=== PATIENT | male | born 1955 | race Caucasian/White ===

== ENCOUNTER 2025-03-16 22:08 | Observation (INO) | payer OTHER ==
--- OUTSIDE RECORDS SUMMARY | 2025-03-16 22:17 | XMS REPORT | Continuity of Care Document ---
Author Name Unknown Address [address] [place] [address] [address] [place] [address] [facility] [address] [facility] [address] [place] [address] Care Team Providers Care Market Risk Specialist Name Role Phone Shy Dao NP Primary Care Physician James Wilhelm Attending Clinician Unavailable NELLA Attending Clinician Unavailable Natalie Bustamante Attending Clinician [phone] DILMA Attending Clinician Unavailable Violette Yeager Attending Clinician [phone] NELLA Admitting Clinician Unavailable DILMA Admitting Clinician Unavailable Payers Payer Name Policy Type Policy Number Effective Date Expirati on Date Source [employer]IG[employer] - OPEN ACCESS PLUS [id number] CIGNA C1 [id number] [facility] Problems Condition Name Condition Details Condition Category Status Onset Date Resolution Date Last Treatment Date Treating Clinician Comments Source 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 Hypertensi ve Heart Disease without Congestive Heart Failure Problem Active 2020-11 00:00: 00 [facility] Localized edema Localized Edema Problem Active 2020-11 00:00: 00 [facility] Electrocar diogram abnormal Electrocar diogram Abnormal Problem Active 2020-11 00:00: 00 [facility] Peripheral arterial disease Peripheral Arterial Disease Problem Active 2020-11 00:00: 00 [facility] Secondary cerebrovas cular disease Secondary Cerebrovas cular Disease Problem Active 2020-11 00:00: 00 [facility] Vitamin D deficiency Vitamin D Deficiency Problem Active 2020-11 00:00: 00 [facility] Diabetes mellitus Diabetes Mellitus Problem Active 2020-11 00:00: 00 [facility] Hyperlipid emia Hyperlipid emia Problem Active 2020-11 00:00: 00 [facility] [id number] Type 2 diabetes mellitus with other diabetic kidney complicati on Problem Active [facility] [id number] Seasonal allergies Problem Active [facility] [id number] Controlled type 2 diabetes mellitus without complicati on, without long-term current use of insulin Problem Active [facility] [id number] Adult BMI 34.0-34.9 kg/sq m Problem Active [facility] [id number] Noncomplia nce with dietary restrictio n Problem Active [facility] [id number] History of gallstones Problem Active [facility] [id number] Uncontroll ed type 2 diabetes mellitus with hyperglyce andie, unspecifie d whether retirement insulin use Problem Active [facility] [id number] Mixed hyperlipid emia Problem Active [facility] [id number] HTN (hypertens ion), benign Problem Active [facility] Allergies, Adverse Reactions, Alerts Allergy Name Allergy Type Status Severity Reaction(s) Onset Date Inactive Date Treating Clinician Comments Source iodine Propensi ty to adverse reaction to drug Active 07-02 00:00: 00 Gunnar Loya Iodine Allergy to substanc e Active Severe Anaphylaxis [facility] Social History Social Habit Start Date Stop Date Quantity Comments Source History of Tobacco Use [facility] Sex Assigned At [facility] Smoking Status Start Date Stop Date Source Never Smoker [facility] Medications Ordered Medication Name Filled Medication Name Start Date Stop Date Current Medication? Ordering Clinician Indication Dosage Frequency Signature (SIG) Comments Components Source losartan 50 mg tablet 2023-11 00:00: 00 Yes mg Gunnar Loya quetiapine 25 mg tablet 2023-11 00:00: 00 Yes mg Gunnar Loya atorvastati n 20 mg tablet 2023-11 00:00: 00 Yes mg Gunnar Loya pantoprazol e 40 mg tablet,rabia yed release 2023-11 00:00: 00 Yes mg Gunnar Loya Toujeo Max U-300 SoloStar 300 unit/mL (3 mL) subcutaneou s insulin pen 2023-11 00:00: 00 Yes (3 mL) Gunnar Loya cetirizine 10 mg tablet 2023-11 00:00: 00 Yes 1mg Gunnar Loya Mucinex DM 30 mg-600 mg tablet,exte nded release 12 hr 2023-11 00:00: 00 Yes 1mg Gunnar Loya Victoza 2-Nitin 0.6 mg/0.1 mL (18 mg/3 mL) subcutaneou s pen injector 2023-11 0 00:00: 00 Yes 1(18 mg/3 mL) Gunnar Loya Victoza 2-Nitin 0.6 mg/0.1 mL (18 mg/3 mL) subcutaneou s pen injector 2023-11 00:00: 00 Yes 1(18 mg/3 mL) Gunnar Loya Breo Ellipta 200 mcg-25 mcg/dose powder for inhalation 2023-11 00:00: 00 Yes 1mcg/do se Gunnar Loya moxifloxaci n 0.5 % eye drops 2023-11 00:00: 00 Yes 1% Gunnar Loya Symbicort 160 mcg-4.5 mcg/actuati on HFA aerosol inhaler 2023-11- 00:00: 00 Yes 1mcg/ac tuation Gunnar Loya albuterol sulfate HFA 90 mcg/actuati on aerosol inhaler 2023-1118 00:00: 00 Yes 1mcg/ac tuation Gunnar Loya Depakote 500 mg tablet,rabia yed release 2024-1 0-18 00:00: 00 Yes 1mg Gunnar Loya Toujeo Max U-300 SoloStar 300 unit/mL (3 mL) subcutaneou s insulin pen 0 9-20 00:00: 00 Yes (3 mL) Gunnar Loya cetirizine 10 mg tablet 0 9-11 00:00: 00 Yes 1mg Gunnar Loya amoxicillin 500 mg capsule 0 9-11 00:00: 00 Yes 1mg Gunnar Loya quetiapine 25 mg tablet 0 8-20 00:00: 00 Yes mg Gunnar Loya atorvastati n 20 mg tablet 0 8-20 00:00: 00 Yes mg Gunnar Loya pantoprazol e 40 mg tablet,rabia yed release 0 8-20 00:00: 00 Yes mg Gunnar Loya Rybelsus 14 mg tablet 0 8-20 00:00: 00 Yes 1mg Gunnar Loya losartan 50 mg tablet 0 6-24 00:00: 00 Yes mg Gunnar Loya Toujeo Max U-300 SoloStar 300 unit/mL (3 mL) subcutaneou s insulin pen 2023-0 6-18 00:00: 00 Yes (3 mL) Gunnar Loya Toujeo Max U-300 SoloStar 300 unit/mL (3 mL) subcutaneou s insulin pen 0 5-31 00:00: 00 Yes (3 mL) Gunnar Loya Rybelsus 3 mg tablet 0 5-31 00:00: 00 Yes 1mg Gunnar Loya quetiapine 25 mg tablet 0 3-10 00:00: 00 Yes mg Gunnar Loya pantoprazol e 40 mg tablet,rabia yed release 0 3-10 00:00: 00 Yes mg Gunnar Loya atorvastati n 20 mg tablet 0 3-02 00:00: 00 Yes mg Gunnar Loya Rybelsus 14 mg tablet 0 2-15 00:00: 00 Yes mg Gunnar Loya TAKE ONE TABLET 15 MINUTES BEFORE OTHER MEDS WITH A SMALL SIP OF WATER 2023-0 2-14 00:00: 00 Yes 14 Gunnar Loya 80 U SQ QD MAY INCREASE OR DECREASE BY 2 U ACCORDING TO MORNING FASTING GLU - GOAL IS 120 - 00:00: 00 Yes 300 Gunnar Loya TAKE 1 TABLET TWICE DAILY WITH FOOD. - 00:00: 00 Yes 500 Gunnar Loya TAKE 1 TABLET DAILY. - 00:00: 00 Yes 81 Gunnar Loya TAKE 1 TABLET DAILY. 12-25 00:00: 00 Yes 50 Gunnar Loya TAKE 1 TABLET DAILY DIRECTED. 12-25 00:00: 00 Yes 20 Gunnar Loya 1 TAB PO QHS FOR SLEEP - 12-25 00:00: 00 Yes 25 Gunnar Loya TAKE 1 TABLET DAILY. 12-25 00:00: 00 Yes 40 Gunnar Loya Toujeo Max U-300 SoloStar 300 unit/mL (3 mL) subcutaneou s insulin pen 11-24 00:00: 00 Yes (3 mL) Gunnar Loya TAKE 1 TABLET TWICE DAILY. 2022-11 2- 00:00: 00 01-15 00:00 :00 No 500 Gunnar Loya losartan 50 mg tablet 2022-11- 00:00: 00 01-15 00:00 :00 No mg Gunnar Loya METFORMIN 500MG 2022-11 00:00: 00 01-15 00:00 :00 No Gunnar Loya ATORVASTATI N 20MG 2022-11 00:00: 00 01-15 00:00 :00 No Gunnar Loya INSTILL 1 DROP EVERY 8 HOURS WHILE AWAKE INTO LEFT EYE FOR 7 DAYS 2022-11- 00:00: 00 Yes Gunnar Loya TAKE 1 TABLET BY MOUTH EVERY MORNING 2022-11 0-27 00:00: 00 01-15 00:00 :00 No 10 Gunnar Loya RYBELSUS 14MG - 00:00: 00 01-15 00:00 :00 No Gunnar Loya DIVALPROEX 500MG DR 08-01 00:00: 00 Yes Gunnar Loya TAKE 1 TABLET TWICE DAILY. 08-01 00:00: 00 01-15 00:00 :00 No 500 Gunnar Loya TAKE 1 TABLET TWICE DAILY WITH FOOD. 08-01 00:00: 00 01-15 00:00 :00 No 500 Gunnar Loya TAKE 1 TABLET DAILY DIRECTED. 08-01 00:00: 00 01-15 00:00 :00 No 20 Gunnarrito Loya 40 U SQ QD MAY INCREASE OR DECREASE BY 2 U ACCORDING TO MORNING FASTING GLU - GOAL IS 120 08-01 00:00: 00 01-15 00:00 :00 No 300 Gunnar Loya TAKE 1 TABLET DAILY. 08-01 00:00: 00 01-15 00:00 :00 No 81 Gunnar Loya TAKE 1 TABLET DAILY. 08-01 00:00: 00 01-15 00:00 :00 No 50 Gunnar Loya TAKE 1 TABLET DAILY. 08-01 00:00: 00 01-15 00:00 :00 No 40 Gunnar Loya TAKE ONE TABLET BY MOUTH 15 MINUTES BEFORE OTHER MEDS WITH A SMALL SIP OF WATER 08-01 00:00: 00 01-15 00:00 :00 No Gunnar Loya TAKE ONE TABLET 15 MINUTES BEFORE OTHER MEDS WITH A SMALL SIP OF WATER 07-28 00:00: 00 01-15 00:00 :00 No 14 Gunnar Loya TAKE ONE TABLET 15 MINUTES BEFORE OTHER MEDS WITH A SMALL SIP OF WATER 05-17 00:00: 00 01-15 00:00 :00 No 14 Gunnarrito Loya TOUJEOSOL MX 300U/ML PEN 05-17 00:00: 00 01-15 00:00 :00 No Gunnar Loya ATORVASTATI N 20MG 04-27 00:00: 00 01-15 00:00 :00 No [id number] Gunnar Loya DIVALPROEX 500MG DR 04-26 00:00: 00 Yes Gunnar Loya RYBELSUS 7MG 04-21 00:00: 00 Yes Gunnar Loya TAKE 1 TABLET DAILY. 04-19 00:00: 00 01-15 00:00 :00 No 50 Gunnar Loya TAKE 1 TABLET TWICE DAILY. 04-19 00:00: 00 01-15 00:00 :00 No 500 Gunnar Loya TAKE 1 TABLET TWICE DAILY WITH FOOD. 04-19 00:00: 00 01-15 00:00 :00 No 500 Gunnar Loya 40 U SQ QD MAY INCREASE OR DECREASE BY 2 U ACCORDING TO MORNING FASTING GLU - GOAL IS 120 04-19 00:00: 00 01-15 00:00 :00 No 300 Gunnar Loya TAKE 1 TABLET DAILY DIRECTED. 04-19 00:00: 00 01-15 00:00 :00 No 20 Gunnar Loya TAKE 1 TAB WITH SMALL AMOUNT OF WATER IN AM BY ITSELF 04-19 00:00: 00 01-15 00:00 :00 No 7 Gunnar Loya PANTOPRAZOL E SOD DR 40 MG 5-15 00:00: 00 01-15 00:00 :00 No Gunnar Brijesh Loya PIOGLITAZON E HCL 45 MG 5-14 00:00: 00 Yes Gunnar Loya PIOGLITAZON E HCL 45 MG 4-10 00:00: 00 Yes Gunnar Loya ATORVASTATI N 20 MG 4-08 00:00: 00 01-15 00:00 :00 No Gunnar Loya LOSARTAN POTASSIUM 50 MG 4-08 00:00: 00 01-15 00:00 :00 No Gunnar Brijesh Loya QUETIAPINE FUMARATE 25 MG 3-09 00:00: 00 01-15 00:00 :00 No Gunnar Brijesh Loya DIVALPROEX SOD DR 500 MG 1-25 00:00: 00 Yes Gunnar Loya TAKE 1 TABLET BY MOUTH TWICE A DAY 2021-11 2- 00:00: 00 Yes Gunnar Brijesh Vincenzo PLEASE SEE ATTACHED FOR DETAILED DIRECTIONS 2021-11 2- 00:00: 00 Yes Gunnra Loya TAKE 1 TABLET BY MOUTH EVERY DAY 2021-11 2-02 00:00: 00 01-15 00:00 :00 No Gunnar Loya FARXIGA 10 MG 2021-11 2-02 00:00: 00 01-15 00:00 :00 No Gunnar Loya TOUJEO MAX SOLOSTR 300 UNIT/ML 2021-11 1-19 00:00: 00 01-15 00:00 :00 No Gunnar Loya TRULICITY 0.75 MG/0.5 ML PEN 2021-11 1-12 00:00: 00 Yes Gunnar Loya XIGDUO XR 10 MG-500 MG 2021-11 1-11 00:00: 00 Yes Gunnar Loya TRULICITY 0.75 MG/0.5 ML PEN 2021-11 0-10 00:00: 00 Yes Gunnar Loya XIGDUO XR 10 MG-500 MG 2021-11 0-08 00:00: 00 Yes Gunnar Loya XIGDUO XR 10 MG-500 MG 9-07 00:00: 00 Yes Gunnar Loya LOSARTAN POTASSIUM 50 MG 9-06 00:00: 00 01-15 00:00 :00 No Gunnar Loya ATORVASTATI N 20 MG 9-06 00:00: 00 01-15 00:00 :00 No Gunnar Loya DIVALPROEX SOD DR 500 MG 8-05 00:00: 00 Yes Gunnar Loya XIGDUO XR 10 MG-500 MG 7-08 00:00: 00 Yes Gunnar Loya ZOLPIDEM TARTRATE 5 MG 7-07 00:00: 00 Yes Gunnar Loya TOUJEO MAX SOLOSTR 300 UNIT/ML 7-07 00:00: 00 01-15 00:00 :00 No Gunnar Loya TAKE 1 TABLET BY MOUTH EVERY DAY IN THE MORNING FOOD 7-06 00:00: 00 Yes Gunnar Loya DIVALPROEX SOD DR 500 MG 0 7-04 00:00: 00 Yes Gunnar Loya DIVALPROEX SOD DR 500 MG 0 6-07 00:00: 00 Yes Gunnar Loya METFORMIN HCL ER 500 MG 04-19 00:00: 00 Yes Gunnar Loya TAKE 1 TABLET BY MOUTH EVERYDAY AT BEDTIME 04-19 00:00: 00 01-15 00:00 :00 No Gunnar Loya Tresiba FlexTouch 100 UNIT/ML Tresiba FlexTouch 100 UNIT/ML 2019-11 00:00: 00 No QD Tresiba FlexTouch 100 UNIT/ML Tresiba FlexTouch 200 UNIT/ML Tresiba FlexTouch 200 UNIT/ML 2019-11 00:00: 00 No QD Tresiba FlexTouch 200 UNIT/ML Victoza 18 MG/3ML Victoza 18 MG/3ML 07-01 00:00: 00 No QD Victoza 18 MG/3ML Victoza 18 MG/3ML Victoza 18 MG/3ML 07-01 00:00: 00 No QD Victoza 18 MG/3ML Victoza Victoza 07-01 00:00: 00 07-31 00:00 :00 No James Wilhelm 1.8 mg [facility] BD Ultra-Fine Micro Pen Needle 32G X 6 MM BD Ultra-Fine Micro Pen Needle 32G X 6 MM 05-01 00:00: 00 No QD BD Ultra-Fine Micro Pen Needle 32G X 6 MM atorvastati n 10 mg tablet Take 1 tablet every day by oral route at bedtime for 90 days. atorvastati n 10 mg tablet Take 1 tablet every day by oral route at bedtime for 90 days. No atorvastat in 10 mg tablet Take 1 tablet every day by oral route at bedtime for 90 days. [facility] BD Ultra-Fine Micro Pen Needle 32 gauge x 1/4" BD Ultra-Fine Micro Pen Needle 32 gauge x 1/4" No BD Ultra-Fine Micro Pen Needle 32 gauge x 1/4" [facility] cholecalcif tami (vitamin D3) 1,250 mcg (50,000 unit) capsule Take 1 capsule every week by oral route as directed for 90 days. cholecalcif tami (vitamin D3) 1,250 mcg (50,000 unit) capsule Take 1 capsule every week by oral route as directed for 90 days. No cholecalci ferol (vitamin D3) 1,250 mcg (50,000 unit) capsule Take 1 capsule every week by oral route as directed for 90 days. [facility] Farxiga 10 mg tablet Take 1 tablet every day by oral route in the morning for 90 days. Farxiga 10 mg tablet Take 1 tablet every day by oral route in the morning for 90 days. No 1 Q1D Farxiga 10 mg tablet Take 1 tablet every day by oral route in the morning for 90 days. [facility] fenofibrate nanocrystal lized 145 mg tablet Take 1 tablet every day by oral route at bedtime for 90 days. fenofibrate nanocrystal lized 145 mg tablet Take 1 tablet every day by oral route at bedtime for 90 days. No fenofibrat e nanocrysta llized 145 mg tablet Take 1 tablet every day by oral route at bedtime for 90 days. [facility] FreeStyle Flash System kit use as directed FreeStyle Flash System kit use as directed No FreeStyle Flash System kit use as directed [facility] Januvia 100 mg tablet Take 1 tablet every day by oral route as directed for 90 days. Januvia 100 mg tablet Take 1 tablet every day by oral route as directed for 90 days. No 1 Q1D Januvia 100 mg tablet Take 1 tablet every day by oral route as directed for 90 days. [facility] Lantus U-100 Insulin 100 unit/mL subcutaneou s solution Inject 35 units every day by subcutaneou s route for 30 days. Lantus U-100 Insulin 100 unit/mL subcutaneou s solution Inject 35 units every day by subcutaneou s route for 30 days. No 35unit( s) Q1D Lantus U-100 Insulin 100 unit/mL subcutaneo us solution Inject 35 units every day by subcutaneo us route for 30 days. [facility] losartan 50 mg tablet Take 1 tablet every day by oral route in the morning for 90 days. losartan 50 mg tablet Take 1 tablet every day by oral route in the morning for 90 days. No 1 Q1D losartan 50 mg tablet Take 1 tablet every day by oral route in the morning for 90 days. [facility] Toujeo SoloStar U-300 Insulin 300 unit/mL (1.5 mL) subcutaneou s pen Inject 50 units every day by subcutaneou s route as directed for 30 days. Toujeo SoloStar U-300 Insulin 300 unit/mL (1.5 mL) subcutaneou s pen Inject 50 units every day by subcutaneou s route as directed for 30 days. No Toujeo SoloStar U-300 Insulin 300 unit/mL (1.5 mL) subcutaneo us pen Inject 50 units every day by subcutaneo us route as directed for 30 days. [facility] gabapentin 600 mg tablet TAKE 1 TABLET BY MOUTH TWICE A DAY gabapentin 600 mg tablet TAKE 1 TABLET BY MOUTH TWICE A DAY No gabapentin 600 mg tablet TAKE 1 TABLET BY MOUTH TWICE A DAY [facility] Humulin N NPH U-100 Insulin (isophane susp) 100 unit/mL subcutaneou s Inject 35 units twice a day by subcutaneou s route. Humulin N NPH U-100 Insulin (isophane susp) 100 unit/mL subcutaneou s Inject 35 units twice a day by subcutaneou s route. No 35unit( s) BID Humulin N NPH U-100 Insulin (isophane susp) 100 unit/mL subcutaneo us Inject 35 units twice a day by subcutaneo us route. [facility] Humulin R Regular U-100 Insulin 100 unit/mL injection solution Take 1 sliding scale dose by injection route. Humulin R Regular U-100 Insulin 100 unit/mL injection solution Take 1 sliding scale dose by injection route. No 1slidin g scale dose(s) Humulin R Regular U-100 Insulin 100 unit/mL injection solution Take 1 sliding scale dose by injection route. [facility] Lantus U-100 Insulin 100 unit/mL subcutaneou s solution Inject 50 units twice a day by subcutaneou s route. Lantus U-100 Insulin 100 unit/mL subcutaneou s solution Inject 50 units twice a day by subcutaneou s route. No 50unit( s) BID Lantus U-100 Insulin 100 unit/mL subcutaneo us solution Inject 50 units twice a day by subcutaneo us route. [facility] magnesium oxide 400 mg (241.3 mg magnesium) tablet TAKE 1 TABLET BY MOUTH EVERY DAY magnesium oxide 400 mg (241.3 mg magnesium) tablet TAKE 1 TABLET BY MOUTH EVERY DAY No magnesium oxide 400 mg (241.3 mg magnesium) tablet TAKE 1 TABLET BY MOUTH EVERY DAY [facility] zolpidem 5 mg tablet Take 1 tablet every day by oral route as needed. zolpidem 5 mg tablet Take 1 tablet every day by oral route as needed. No 1 Q1D zolpidem 5 mg tablet Take 1 tablet every day by oral route as needed. [facility] metformin 1,000 mg tablet metformin 1,000 mg tablet No metformin 1,000 mg tablet [facility] Tresiba FlexTouch U-200 insulin 200 unit/mL (3 mL) subcutaneou s pen Inject 100 units every day by subcutaneou s route as directed for 90 days. Tresiba FlexTouch U-200 insulin 200 unit/mL (3 mL) subcutaneou s pen Inject 100 units every day by subcutaneou s route as directed for 90 days. No 100unit (s) Q1D Tresiba FlexTouch U-200 insulin 200 unit/mL (3 mL) subcutaneo us pen Inject 100 units every day by subcutaneo us route as directed for 90 days. [facility] Atorvastati n Calcium 10 MG Atorvastati n Calcium 10 MG No 1{table t} QD BD Ultra-Fine Micro Pen Needle 32G X 6 MM BD Ultra-Fine Micro Pen Needle 32G X 6 MM No QD Metformin HCl 500 MG Metformin HCl 500 MG No 1{table t_with_ a_meal} QD Tresiba FlexTouch 100 UNIT/ML Tresiba FlexTouch 100 UNIT/ML No QD Farxiga 10 MG Farxiga 10 MG No 1{table t} QD Fenofibrate 145 MG Fenofibrate 145 MG No 1{table t_with_ food} QD Lisinopril 5 MG Lisinopril 5 MG No 1{table t} QD Losartan Potassium 50 MG Losartan Potassium 50 MG No 1{table t} QD Januvia 100 MG Januvia 100 MG No 1{table t} QD Lisinopril 5 MG Lisinopril 5 MG No 1{table t} QD Lisinopril 5 MG Atorvastati n Calcium 10 MG Atorvastati n Calcium 10 MG No 1{table t} QD Atorvastat in Calcium 10 MG Metformin HCl 1000 MG Metformin HCl 1000 MG No 1{table t_with_ a_meal} BID Metformin HCl 1000 MG Farxiga 10 MG Farxiga 10 MG No 1{table t} QD Farxiga 10 MG Losartan Potassium 50 MG Losartan Potassium 50 MG No 1{table t} QD Losartan Potassium 50 MG Januvia 100 MG Januvia 100 MG No 1{table t} QD Januvia 100 MG Fenofibrate 145 MG Fenofibrate 145 MG No 1{table t_with_ food} QD Fenofibrat e 145 MG Losartan Potassium 25 MG Losartan Potassium 25 MG No QD Losartan Potassium 25 MG Metformin HCl 1000 MG Metformin HCl 1000 MG No 1{table t_with_ a_meal} BID Metformin HCl 1000 MG Losartan Potassium 25 MG Losartan Potassium 25 MG No QD Losartan Potassium 25 MG Vital Signs Vital Name Observation Time Observation Value Comments S ource BP Diastolic 2022-01-18 00:00:00 78 mm[Hg] [facility] Height 2022-01-18 00:00:00 68 [in_i] [facility] BMI (Body Mass Index) 2022-01-18 00:00:00 36.1 kg/m2 [facility] BP Systolic 2022-01-18 00:00:00 138 mm[Hg] [facility] Body Weight 2022-01-18 00:00:00 3798.4 [oz_av] [facility] BP Diastolic 2021 00:00:00 72 mm[Hg] [facility] Height 2021 00:00:00 68 [in_i] [facility] BMI (Body Mass Index) 2021 00:00:00 36.6 kg/m2 [facility] BP Systolic 2021 00:00:00 147 mm[Hg] [facility] Body Weight 2021 00:00:00 3856 [oz_av] [facility] BP Diastolic 2021-09-13 00:00:00 80 mm[Hg] [facility] Height 2021-09-13 00:00:00 68 [in_i] [facility] BMI (Body Mass Index) 2021-09-13 00:00:00 37.4 kg/m2 [facility] BP Systolic 2021-09-13 00:00:00 149 mm[Hg] [facility] Body Weight 2021-09-13 00:00:00 3932.8 [oz_av] [facility] BP Diastolic 2021-09-07 00:00:00 86 mm[Hg] [facility] Height 2021-09-07 00:00:00 68 [in_i] [facility] BMI (Body Mass Index) 2021-09-07 00:00:00 36.5 kg/m2 [facility] BP Systolic 2021-09-07 00:00:00 136 mm[Hg] [facility] Body Weight 2021-09-07 00:00:00 3843.2 [oz_av] [facility] height 2021-06-24 14:30:00 68 [in_i] [facility] weight 2021-06-24 14:30:00 242.6 [lb_av] [facility] temperature 2021-06-24 14:30:00 97.3 [degF] Com mon [facility] bmi 2021-06-24 14:30:00 36.88 kg/m2 Comm on [facility] oximetry 2021-06-24 14:30:00 95 % [facility] respiratory rate 2021-06-24 14:30:00 18 /min Common [facility] blood pressure systolic 2021-06-24 14:30:00 135 mm[Hg] Common [facility] blood pressure diastolic 2021-06-24 14:30:00 78 mm[Hg] [facility] height 2021-04-07 14:30:00 68 [in_i] Commo n [facility] weight 2021-04-07 14:30:00 239.0 [lb_av] Co mmon [facility] temperature 2021-04-07 14:30:00 97.3 [degF] Com mon [facility] bmi 2021-04-07 14:30:00 36.34 kg/m2 Comm on [facility] oximetry 2021-04-07 14:30:00 96 % Commo n [facility] respiratory rate 2021-04-07 14:30:00 16 /min [facility] blood pressure systolic 2021-04-07 14:30:00 133 mm[Hg] [facility] blood pressure diastolic 2021-04-07 14:30:00 76 mm[Hg] Common [facility] height 2020-10-01 09:20:00 68 [in_i] Commo n [facility] weight 2020-10-01 09:20:00 221.6 [lb_av] Co mmon [facility] temperature 2020-10-01 09:20:00 98.1 [degF] Com [facility] bmi 2020-10-01 09:20:00 33.69 kg/m2 Comm on [facility] oximetry 2020-10-01 09:20:00 95 % Commo n [facility] respiratory rate 2020-10-01 09:20:00 17 /min Common [facility] blood pressure systolic 2020-10-01 09:20:00 144 mm[Hg] Common [facility] blood pressure diastolic 2020-10-01 09:20:00 89 mm[Hg] Common [facility] BP Systolic 2025-01-08 13:42:00 158 mm[Hg] Step hen F Vincenzo BP Diastolic 2025-01-08 13:42:00 96 mm[Hg] Mark phen F Vincenzo Weight Measured 2025-01-08 13:42:00 244.00 pounds Gunnar F Vincenzo Height Measured 2025-01-08 13:42:00 68.00 inches Gunnar F Vincenzo Body Temperature 2025-01-08 13:42:00 99.40 degrees Gunnar F Vincenzo Heart Rate 2025-01-08 13:42:00 86.00 /min Tamika en F Vincenzo Respiratory Rate 2025-01-08 13:42:00 20.00 /min Gunnar F Vincenzo BP Systolic 2024-10-23 08:25:00 136 mm[Hg] Step hen F Vincenzo BP Diastolic 2024-10-23 08:25:00 72 mm[Hg] Mark phen F Vincenzo Weight Measured 2024-10-23 08:25:00 245.00 pounds Gunnar F Vincenzo Height Measured 2024-10-23 08:25:00 68.00 inches Gunnar F Vincenzo Body Temperature 2024-10-23 08:25:00 97.90 degrees Gunnar F Vincenzo Heart Rate 2024-10-23 08:25:00 73.00 /min Tamika en F Vincenzo Respiratory Rate 2024-10-23 08:25:00 20.00 /min Gunnar F Vincenzo BP Systolic 2024-08-30 14:31:00 150 mm[Hg] Step hen F Vincenzo BP Diastolic 2024-08-30 14:31:00 72 mm[Hg] Mark phen F Vincenzo Weight Measured 2024-08-30 14:31:00 246.00 pounds Gunnar F Vincenzo Height Measured 2024-08-30 14:31:00 68.00 inches Gunnar F Vincenzo Body Temperature 2024-08-30 14:31:00 98.20 degrees Gunnar F Vincenzo Heart Rate 2024-08-30 14:31:00 83.00 /min Tamika en F Vincenzo Respiratory Rate 2024-08-30 14:31:00 20.00 /min Gunnar F Vincenzo BP Systolic 2024-08-02 07:46:00 132 mm[Hg] Step hen F Vincenzo BP Diastolic 2024-08-02 07:46:00 80 mm[Hg] Mark phen F Vincenzo Weight Measured 2024-08-02 07:46:00 242.00 pounds Gunnar F Vincenzo Height Measured 2024-08-02 07:46:00 68.00 inches Gunnar F Vincenzo Body Temperature 2024-08-02 07:46:00 98.60 degrees Gunnar F Vincenzo Heart Rate 2024-08-02 07:46:00 87.00 /min Tamika en F Vincenzo Respiratory Rate 2024-08-02 07:46:00 18.00 /min Gunnar F Vincenzo BP Systolic 2024-07-24 11:29:00 136 mm[Hg] Step hen F Vincenzo BP Diastolic 2024-07-24 11:29:00 70 mm[Hg] Mark phen F Vincenzo Weight Measured 2024-07-24 11:29:00 242.00 pounds Gunnar F Vincenzo Height Measured 2024-07-24 11:29:00 68.00 inches Gunnar F Vincenzo Body Temperature 2024-07-24 11:29:00 98.30 degrees Gunnar F Vincenzo Heart Rate 2024-07-24 11:29:00 79.00 /min Tamika en F Vincenzo Respiratory Rate 2024-07-24 11:29:00 18.00 /min Gunnar F Vincenzo BP Systolic 2024-07-02 15:54:00 140 mm[Hg] Step hen F Vincenzo BP Diastolic 2024-07-02 15:54:00 82 mm[Hg] Mark phen F Vincenzo Weight Measured 2024-07-02 15:54:00 243.00 pounds Gunnar F Vincenzo Height Measured 2024-07-02 15:54:00 68.00 inches Gunnar F Vincenzo Body Temperature 2024-07-02 15:54:00 97.10 degrees Gunnar F Vincenzo Heart Rate 2024-07-02 15:54:00 74.00 /min Tamika en F Vincenzo Respiratory Rate 2024-07-02 15:54:00 18.00 /min Gunnar F Vincenzo BP Systolic 2024-07-02 14:17:00 140 mm[Hg] Step hen F Vincenzo BP Diastolic 2024-07-02 14:17:00 82 mm[Hg] Mark phen F Vincenzo Weight Measured 2024-07-02 14:17:00 243.00 pounds Gunnar F Vincenzo Height Measured 2024-07-02 14:17:00 68.00 inches Gunnar F Vincenzo Body Temperature 2024-07-02 14:17:00 97.10 degrees Gunnar F Vincenzo Heart Rate 2024-07-02 14:17:00 74.00 /min Tamika en F Vincenzo Respiratory Rate 2024-07-02 14:17:00 18.00 /min Gunnar F Vincenzo BP Systolic 2024-04-12 08:24:00 142 mm[Hg] Step hen F Vincenzo BP Diastolic 2024-04-12 08:24:00 82 mm[Hg] Mark phen F Vincenzo Weight Measured 2024-04-12 08:24:00 246.20 pounds Gunnar F Vincenzo Height Measured 2024-04-12 08:24:00 68.00 inches Gunnar F Vincenzo Body Temperature 2024-04-12 08:24:00 97.60 degrees Gunnar F Vincenzo Heart Rate 2024-04-12 08:24:00 69.00 /min Tamika en F Vincenzo Respiratory Rate 2024-04-12 08:24:00 18.00 /min Gunnar F Vincenzo BP Systolic 2023-12-25 09:28:00 136 mm[Hg] Step hen F Vincenzo BP Diastolic 2023-12-25 09:28:00 78 mm[Hg] Mark phen F Vincenzo Weight Measured 2023-12-25 09:28:00 238.30 pounds Gunnar F Vincenzo Height Measured 2023-12-25 09:28:00 68.00 inches Gunnar F Vincenzo Body Temperature 2023-12-25 09:28:00 97.80 degrees Gunnar F Vincenzo Heart Rate 2023-12-25 09:28:00 56.00 /min Tamika en F Vincenzo Respiratory Rate 2023-12-25 09:28:00 16.00 /min Gunnar F Vincenzo BP Systolic 2023-10-27 16:19:00 Step hen F Vincenzo BP Diastolic 2023-10-27 16:19:00 Mark phen F Vincenzo Weight Measured 2023-10-27 16:19:00 Gunnar F Vincenzo Height Measured 2023-10-27 16:19:00 Gunnar F Vincenzo Body Temperature 2023-10-27 16:19:00 Gunnar F Vincenzo Heart Rate 2023-10-27 16:19:00 Tamika en F Vincenzo Respiratory Rate 2023-10-27 16:19:00 Gunnar F Vincenzo BP Systolic 2023-09-08 08:57:00 126 mm[Hg] Step hen F Vincenzo BP Diastolic 2023-09-08 08:57:00 72 mm[Hg] Mark phen F Vincenzo Weight Measured 2023-09-08 08:57:00 233.00 pounds Gunnar F Vincenzo Height Measured 2023-09-08 08:57:00 68.00 inches Gunnar F Vincenzo Body Temperature 2023-09-08 08:57:00 98.30 degrees Gunnar F Vincenzo Heart Rate 2023-09-08 08:57:00 87.00 /min Tamika en F Vincenzo Respiratory Rate 2023-09-08 08:57:00 18.00 /min Gunnar F Vincenzo BP Systolic 2023-07-28 09:19:00 136 mm[Hg] Step hen F Vincenzo BP Diastolic 2023-07-28 09:19:00 84 mm[Hg] Mark phen F Vincenzo Weight Measured 2023-07-28 09:19:00 234.00 pounds Gunnar F Vincenzo Height Measured 2023-07-28 09:19:00 68.00 inches Gunnar F Vincenzo Body Temperature 2023-07-28 09:19:00 97.10 degrees Gunnar F Vincenzo Heart Rate 2023-07-28 09:19:00 75.00 /min Tamika en F Vincenzo Respiratory Rate 2023-07-28 09:19:00 18.00 /min Gunnar F Vincenzo BP Systolic 2023-06-16 10:17:00 120 mm[Hg] Step hen F Vincenzo BP Diastolic 2023-06-16 10:17:00 78 mm[Hg] Mark phen F Vincenzo Weight Measured 2023-06-16 10:17:00 235.70 pounds Gunnar F Vincenzo Height Measured 2023-06-16 10:17:00 68.00 inches Gunnar F Vincenzo Body Temperature 2023-06-16 10:17:00 97.80 degrees Gunnar F Vincenzo Heart Rate 2023-06-16 10:17:00 80.00 /min Tamika en F Vincenzo Respiratory Rate 2023-06-16 10:17:00 18.00 /min Gunnar F Vincenzo BP Systolic 2023-04-19 09:25:00 142 mm[Hg] Step hen F Vincenzo BP Diastolic 2023-04-19 09:25:00 78 mm[Hg] Mark phen F Vincenzo Weight Measured 2023-04-19 09:25:00 252.00 pounds Gunnar Loya Height Measured 2023-04-19 09:25:00 68.00 inches Gunnar Loya Body Temperature 2023-04-19 09:25:00 98.20 degrees Gunnar Loya Heart Rate 2023-04-19 09:25:00 63.00 /min Tamika Loya Respiratory Rate 2023-04-19 09:25:00 18.00 /min Gunnar Loya Procedures Procedure Date / Time Performed Performing Clinicia n Source Carpal Tunnel Surgery [facility] Procedure on Foot [facility] Plan of Care Planned Activity Planned Date Details Comments Source Diagnostic Test Pending 2022-01-18 00:00:00 CBC w/ auto diff [code = CBC w/ auto diff] [facility] Diagnostic Test Pending 2022-01-18 00:00:00 CMP, serum or plasma [code = CMP, serum or plasma] [facility] Diagnostic Test Pending 2022-01-18 00:00:00 lipid panel w/ direct LDL, serum [code = lipid panel w/ direct LDL, serum] [facility] Diagnostic Test Pending 2022-01-18 00:00:00 HbA1c (hemoglobin A1c), blood [code = HbA1c (hemoglobin A1c), blood] [facility] Diagnostic Test Pending 2022-01-18 00:00:00 TSH + free T4, serum [code = TSH + free T4, serum] [facility] Diagnostic Test Pending 2022-01-18 00:00:00 vitamin D, 25-hydroxy, total, serum [code = vitamin D, 25-hydroxy, total, serum] [facility] Instructions [facility] Encounters Start Date/Time End Date/Time Encounter Type Admission Type Attending Clinicians Care Facility Care Department Encounter ID Source 2021-12-08 12:33:09 [id number] [facility] 2021-12-08 12:06:04 [facility] [id number] [facility] 2021-12-08 11:33[facility]52 [id number] 2021-12-08 11:33:40 [facility] [id number] [facility] 2021-12-08 11:19:44 [facility] [id number] [facility] 2021-12-08 11:19:31 [facility] [id number] [facility] 2025-01-08 13:28:08 2025-01-08 13:28:08 Outpatient SFA S[facility] [id number] Gunnar Loya 2025-01-08 00:00:00 2025-01-08 00:00:00 Outpatient Visit SFA [id number] Gunnar Loya 2024-10-23 08:24:35 2024-10-23 08:24:35 Outpatient SFA SFA [id number] Gunnar Loya 2024-10-23 00:00:00 2024-10-23 00:00:00 Outpatient Visit SFA [id number] Gunnar Loya 2024-08-30 14:30:45 2024-08-30 14:30:45 Outpatient SFA SFA [id number] Gunnar Loya 2024-08-30 00:00:00 2024-08-30 00:00:00 Outpatient Visit SFA [id number] Gunnar Loya 2024-08-02 07:33:42 2024-08-02 07:33:42 Outpatient SFA SFA [id number] Gunnar Loya 2024-08-02 00:00:00 2024-08-02 00:00:00 Outpatient Visit SFA [id number] Gunnar Loya 2024-07-24 11:29:38 2024-07-24 11:29:38 Outpatient SFA SFA [id number] Gunnar Loya 2024-07-24 00:00:00 2024-07-24 00:00:00 Outpatient Visit SFA [id number] Gunnar Loya 2024-07-03 08:10:21 2024-07-03 08:10:21 Outpatient SFA SFA [id number] Gunnar Loya 2024-07-02 14:10:47 2024-07-02 14:10:47 Outpatient SFA SFA [id number] Gunnar Loya 2024-07-02 00:00:00 2024-07-02 00:00:00 Outpatient Visit SFA [id number] Gunnar Loya 2024-06-06 11:53:32 2024-06-06 11:53:32 Outpatient SFA SFA [id number] Gunnar Loya 2024-05-06 08:36:22 2024-05-06 08:36:22 Outpatient SFA SFA [id number] Gunnar Loya 2024-04-12 08:24:02 2024-04-12 08:24:02 Outpatient SFA SFA [id number] Gunnar Loya 2024-04-12 00:00:00 2024-04-12 00:00:00 Outpatient Visit SFA [id number] Gunnar Loya 2024-03-29 10:39:55 2024-03-29 10:39:55 Outpatient SFA SFA [id number] Gunnar Loya 2023-12-25 09:28:07 2023-12-25 09:28:07 Outpatient SFA SFA [id number] Gunnar Loya 2023-09-08 08:57:17 2023-09-08 08:57:17 Outpatient SFA SFA [id number] Gunnar Loya 2023-07-28 09:02:36 2023-07-28 09:02:36 Outpatient SFA SFA [id number] Gunnar Loya 2023-07-28 00:00:00 2023-07-28 00:00:00 Outpatient [facility] [id number] 2023-06-16 10:08:01 2023-06-16 10:08:01 Outpatient SFA SFA [id number] Gunnar Loya 2023-04-19 09:20:36 2023-04-19 09:20:36 Outpatient SFA SFA [id number] Gunnar Loya 2023-03-03 00:00:00 2023-03-03 00:00:00 Outpatient [facility] [id number] 2022-05-13 11:56:00 2022-05-13 11:56:00 Outpatient [facility] [id number] 2022-05-08 12:43:00 2022-05-08 12:43:00 Outpatient [facility] [id number] 2022-04-03 12:43:00 2022-04-03 12:43:00 Outpatient [facility] [id number] 2022-02-27 01:10:00 2022-02-27 01:10:00 Outpatient [facility] [id number] 2022-01-18 03:18:00 2022-01-18 03:18:00 Outpatient [facility] [id number] 2022-01-18 00:00:00 2022-01-18 00:00:00 Outpatient Bustamante, Natalie [facility] [id number] 2022-01-18 00:00:00 2022-01-18 00:00:00 Natalie BustamanteMILO-SAP PI DEVELOPER-C: [address] [place] [address], [address] [place] [phone] , Ph. [facility] [id number] [facility] 2021-12-13 04:52:00 2021-12-13 04:52:00 Outpatient [facility] [id number] 2021-11-18 10:21:00 2021-11-18 10:21:00 Outpatient [facility] [id number] 2021 10:48:00 2021 10:48:00 Outpatient [facility] [id number] 2021 00:00:00 2021 00:00:00 Natalie BustamanteMILO-SAP PI DEVELOPER-C: [address] [place] [address], [address] [place] [phone] , Ph. [facility] [id number] [facility] 2021 00:00:00 2021 00:00:00 Outpatient Natalie Bustamante [facility] [id number] 06:36:00 2021-11-12 06:36:00 Outpatient [facility] [id number] 2021-11-11 03:59:00 2021-11-11 03:59:00 Outpatient [facility] [id number] 2021-10-25 09:11:00 2021-10-25 09:11:00 Outpatient [place] [id number] 2021-10-23 03:30:00 2021-10-23 03:30:00 Outpatient [facility] [id number] 2021-10-16 05:22:00 2021-10-16 05:22:00 Outpatient [facility] [id number] 2021-09-13 11:39:00 2021-09-13 11:39:00 Outpatient [facility] [id number] 2021-09-13 00:00:00 2021-09-13 00:00:00 Outpatient Violette Yeager [facility] [id number] 2021-09-13 00:00:00 2021-09-13 00:00:00 Violette ortiz, [facility]-: [address] [place] [address], [address] [place] [phone] , Ph. [facility] [id number] [facility] 2021-09-11 03:33:00 2021-09-11 03:33:00 Outpatient [facility] [facility] [id number] 2021-09-08 10:54:00 2021-09-08 10:54:00 Outpatient [facility] [facility] [id number] 2021-09-07 10:44:00 2021-09-07 10:44:00 Outpatient [facility] [id number] 2021-09-07 00:00:00 2021-09-07 00:00:00 Outpatient Violette Yeager [facility] [id number] 2021-09-07 00:00:00 2021-09-07 00:00:00 Violette ortiz [facility]: [address], [address], [place] [address] , Ph. [facility] [id number] [facility] 2021-06-24 00:00:00 2021-06-24 00:00:00 OFFICE VISIT ESTAB PT LEVEL 4 STLMLC STLMLC [id number] [facility] 2021-04-07 00:00:00 2021-04-07 00:00:00 OFFICE VISIT EST PT LEVEL 3 STLMLC STLMLC [id number] [facility] 2021-02-16 00:00:00 2021-02-16 00:00:00 (TEL) STLMLC STLMLC [id number] [facility] 2021-01-08 00:00:00 2021-01-08 00:00:00 (TEL) STLMLC STLMLC [id number] [facility] 2020-11-16 00:00:00 2020-11-16 00:00:00 (TEL) STLMLC STLMLC [id number] [facility] 2020-10-01 00:00:00 2020-10-01 00:00:00 OFFICE VISIT ESTAB PT LEVEL 4 STLMLC STLMLC [id number] [facility] 2020-07-06 11:27:00 2020-07-06 11:27:00 [facility] [id number] [facility] 2020-07-01 09:15:00 2020-07-01 09:15:00 [facility] [id number] [facility] 2020-06-16 11:43:00 2020-06-16 11:43:00 [facility] [id number] [facility] 2020-06-11 16:00:00 2020-06-11 16:00:[address] [facility] [id number] [facility] 2020-03-09 15:26:00 2020-03-09 15:26:[address] [facility] [id number] [facility] 2019-11-04 08:43:00 2019-11-04 08:43:[address] [facility] [id number] [facility] 2019-09-03 06:42:00 2019-09-03 06:42:[address] [facility] [id number] [facility] 2019-08-29 09:39:00 2019-08-29 09:39:[address] [facility] [id number] [facility] 2019-07-22 10:30:00 2019-07-22 10:30:[address] [facility] [id number] [facility] 2019-06-04 11:52:00 2019-06-04 11:52:[address] [facility] [id number] [facility] 2019-05-06 10:00:00 2019-05-06 10:00:[address] [facility] [id number] [facility] 2019-01-10 15:30:00 2019-01-10 15:30:[address] [facility] [id number] [facility] 2018-10-29 11:12:00 2018-10-29 11:12:[address] [facility] [id number] [facility] 2018-08-28 06:58:00 2018-08-28 06:58:[address] [facility] [id number] [facility] 2018-08-27 10:44:00 2018-08-27 10:44:[address] [facility] [id number] [facility] 2018-07-30 12:54:00 2018-07-30 12:54:[address] [facility] [id number] [facility] 2018-05-24 10:53:00 2018-05-24 10:53:00 [facility] [facility] [id number] [facility] 2018-05-01 11:50:00 2018-05-01 11:50:00 [facility] [facility] [id number] [facility] 2018-04-30 14:30:00 2018-04-30 14:30:[address] [facility] [id number] [facility] 2018-04-29 10:55:00 2018-04-29 10:55:00 [facility] [facility] [id number] [facility] 2018-04-19 14:00:00 2018-04-19 14:00:00 [facility] [id number] [facility] 2018-04-16 09:00:00 2018-04-16 09:00:[address] [facility] [id number] [facility] Results Test Description Test Time Test Comments Results Result Co mments Source Gunnar Coley AustinLIPID [id number] 00:00:00* Test Item Value Reference Range Interpretation Comme nts CHOLESTEROL (test code = 2210) 216 MG/DL TRIGLYCERIDES (test code = 2232) 184 MG/DL HDL CHOLESTEROL (test code = 2220) 39 MG/DL CALC LDL CHOL (test code = 2237) 145 MG/DL RISK RATIO LDL/HDL (test cod e = 2238) 3.72 RATIO Gunnar LoyaHEMOGLOBIN [id number] 00:00:00* Test Item Value Reference Range Interpretation Comme pierce HEMOGLOBIN A1c (test code = 58732) 7.6 % Gunnar LoyaCOMPREHENSIVE METABOLIC [id number] 00:00:00* Test Item Value Reference Range Interpretation Comme nts GLUCOSE (test code = 2217) 128 MG/DL BUN (test code = 2208) 19 MG/DL CREATININE (test code = 2214) 0.93 MG/DL eGFR (2020 CKD-EPI) (test co de = 41949) 91 ML/MIN/1.73 CALC BUN/CREAT (test code = 2235) 20 RATIO SODIUM (test code = 2231) 138 MEQ/L POTASSIUM (test code = 2228) 4.3 MEQ/L CHLORIDE (test code = 2215) 103 MEQ/L CARBON DIOXIDE (test code = 2206) 23 MEQ/L CALCIUM (test code = 2209) 9.0 MG/DL PROTEIN, TOTAL (test code = 2229) 7.0 G/DL ALBUMIN (test code = 2201) 4.5 G/DL CALC GLOBULIN (test code = 2240) 2.5 G/DL CALC A/G RATIO (test code = 2234) 1.8 RATIO BILIRUBIN, TOTAL (test code = 2207) 0.5 MG/DL ALKALINE PHOSPHATASE (test code = 2204) 123 U/L AST (test code = 2218) 18 U/L ALT (test code = 2219) 25 U/L Gunnar LoyaPSA, [id number] 00:00:00* Test Item Value Reference Range Interpretation Comme pierce PSA, TOTAL (test code = 2606) 0.59 NG/ML Gunnar LoyaURINALYSIS W/REFLEX [id number] 00:00:00* Test Item Value Reference Range Interpretation Comme nts COLOR (test code = 1501) YELLOW APPEARANCE (test code = 1502) CLEAR SPECIFIC GRAVITY (test code = 1503) 1.026 LEUKOCYTE ESTERASE (test cod e = 1504) NEGATIVE NITRITE (test code = 1505) NEGATIVE pH (test code = 1506) 5.5 PROTEIN (test code = 1507) NEGATIVE GLUCOSE (test code = 1508) NEGATIVE KETONES (test code = 1509) NEGATIVE UROBILINOGEN (test code = 1510) 0.2 MG/DL BILIRUBIN (test code = 1511) NEGATIVE OCCULT BLOOD (test code = 1512) NEGATIVE Gunnar LoyaALBUMIN/CREATININE RATIO, RANDOM [id number] 00:00:00* Test Item Value Reference Range Interpretation Comme nts CREATININE, URINE, CONC. (te st code = 2072) 132.2 MG/DL ALBUMIN, URINE, RANDOM (test code = 98637) 1.8 MG/DL CALC ALBUMIN/CREAT, RND (genevieve t code = 85639) 14 MG/G Gunnar LoyaCBC W/AUTO [id number] 00:00:00* Test Item Value Reference Range Interpretation Comme nts WBC (test code = 1001) 5.5 K/UL RBC (test code = 1002) 4.57 M/UL HEMOGLOBIN (test code = 1003) 13.6 G/DL HEMATOCRIT (test code = 1004) 41.8 % MCV (test code = 1005) 91.5 fL MCH (test code = 1006) 29.8 PG MCHC (test code = 1007) 32.5 G/DL RDW (test code = 1038) 13.4 % NEUTROPHILS (test code = 1008) 69.0 % LYMPHOCYTES (test code = 1010) 20.7 % MONOCYTES (test code = 1011) 7.6 % EOSINOPHILS (test code = 1012) 1.5 % BASOPHILS (test code = 1013) 0.5 % IMMATURE GRANULOCYTES (test code = 1036) 0.7 % NUCLEATED RBCS (test code = 1065) 0.0 /100WBC'S PLATELET COUNT (test code = 1015) 145 K/UL ABSOLUTE NEUTROPHILS (test c ode = 1066) 3.79 K/UL ABSOLUTE LYMPHOCYTES (test c ode = 1067) 1.14 K/UL ABSOLUTE MONOCYTES (test cod e = 1068) 0.42 K/UL ABSOLUTE EOSINOPHILS (test c ode = 1040) 0.08 K/UL ABSOLUTE BASOPHILS (test cod e = 1069) 0.03 K/UL ABS IMMATURE GRANULOCYTES (t est code = 1020) 0.04 K/UL ABS NUCLEATED RBCS (test cod e = 73914) 0.00 K/UL Gunnar LoyaLIPID [id number] 00:00:00* Test Item Value Reference Range Interpretation Comme nts CHOLESTEROL (test code = 2210) 133 MG/DL TRIGLYCERIDES (test code = 2232) 81 MG/DL HDL CHOLESTEROL (test code = 2220) 43 MG/DL CALC LDL CHOL (test code = 2237) 74 MG/DL RISK RATIO LDL/HDL (test cod e = 2238) 1.72 RATIO Gunnar LoyaHEMOGLOBIN [id number] 00:00:00* Test Item Value Reference Range Interpretation Comme nts HEMOGLOBIN A1c (test code = 29935) 7.9 % Gunnar LoyaCOMPREHENSIVE METABOLIC [id number] 00:00:00* Test Item Value Reference Range Interpretation Comme nts GLUCOSE (test code = 2217) 123 MG/DL BUN (test code = 2208) 19 MG/DL CREATININE (test code = 2214) 1.07 MG/DL eGFR (2020 CKD-EPI) (test co de = 57901) 77 ML/MIN/1.73 CALC BUN/CREAT (test code = 2235) 18 RATIO SODIUM (test code = 2231) 142 MEQ/L POTASSIUM (test code = 2228) 4.3 MEQ/L CHLORIDE (test code = 2215) 106 MEQ/L CARBON DIOXIDE (test code = 2206) 24 MEQ/L CALCIUM (test code = 2209) 9.1 MG/DL PROTEIN, TOTAL (test code = 2229) 6.2 G/DL ALBUMIN (test code = 2201) 4.3 G/DL CALC GLOBULIN (test code = 2240) 1.9 G/DL CALC A/G RATIO (test code = 2234) 2.3 RATIO BILIRUBIN, TOTAL (test code = 2207) 0.4 MG/DL ALKALINE PHOSPHATASE (test code = 2204) 103 U/L AST (test code = 2218) 21 U/L ALT (test code = 2219) 27 U/L Gunnar LoyaURINALYSIS W/REFLEX [id number] 00:00:00* Test Item Value Reference Range Interpretation Comme nts COLOR (test code = 1501) DARK YELLOW APPEARANCE (test code = 1502) CLEAR SPECIFIC GRAVITY (test code = 1503) 1.021 LEUKOCYTE ESTERASE (test cod e = 1504) NEGATIVE NITRITE (test code = 1505) NEGATIVE pH (test code = 1506) 6.0 PROTEIN (test code = 1507) NEGATIVE GLUCOSE (test code = 1508) NEGATIVE KETONES (test code = 1509) NEGATIVE UROBILINOGEN (test code = 1510) 1.0 MG/DL BILIRUBIN (test code = 1511) NEGATIVE OCCULT BLOOD (test code = 1512) NEGATIVE WHITE BLOOD CELLS (test code = 1513) 0-5 /HPF RED BLOOD CELLS (test code = 1514) 0-2 /HPF EPITHELIAL CELLS (test code = 03570) 0-5 /HPF BACTERIA (test code = 1515) NONE SEEN CASTS, HYALINE (test code = 1517) NONE SEEN Gunnar LoyaALBUMIN/CREATININE RATIO, RANDOM [id number] 00:00:00* Test Item Value Reference Range Interpretation Comme nts CREATININE, URINE, CONC. (te st code = 2072) 179.2 MG/DL ALBUMIN, URINE, RANDOM (test code = 20500) 2.1 MG/DL CALC ALBUMIN/CREAT, RND (genevieve t code = 08582) 12 MG/G Gunnar LoyaPSA, [id number] 00:00:00* Test Item Value Reference Range Interpretation Comme nts PSA, TOTAL (test code = 2606) 0.57 NG/ML Gunnar LoyaCBC W/AUTO [id number] 00:00:00* Test Item Value Reference Range Interpretation Comme nts WBC (test code = 1001) 5.5 K/UL RBC (test code = 1002) 4.57 M/UL HEMOGLOBIN (test code = 1003) 13.6 G/DL HEMATOCRIT (test code = 1004) 41.8 % MCV (test code = 1005) 91.5 fL MCH (test code = 1006) 29.8 PG MCHC (test code = 1007) 32.5 G/DL RDW (test code = 1038) 13.4 % NEUTROPHILS (test code = 1008) 69.0 % LYMPHOCYTES (test code = 1010) 20.7 % MONOCYTES (test code = 1011) 7.6 % EOSINOPHILS (test code = 1012) 1.5 % BASOPHILS (test code = 1013) 0.5 % IMMATURE GRANULOCYTES (test code = 1036) 0.7 % NUCLEATED RBCS (test code = 1065) 0.0 /100WBC'S PLATELET COUNT (test code = 1015) 145 K/UL ABSOLUTE NEUTROPHILS (test c ode = 1066) 3.79 K/UL ABSOLUTE LYMPHOCYTES (test c ode = 1067) 1.14 K/UL ABSOLUTE MONOCYTES (test cod e = 1068) 0.42 K/UL ABSOLUTE EOSINOPHILS (test c ode = 1040) 0.08 K/UL ABSOLUTE BASOPHILS (test cod e = 1069) 0.03 K/UL ABS IMMATURE GRANULOCYTES (t est code = 1020) 0.04 K/UL ABS NUCLEATED RBCS (test cod e = 80095) 0.00 K/UL Gunnar LoyaLIPID [id number] 00:00:00* Test Item Value Reference Range Interpretation Comme nts CHOLESTEROL (test code = 2210) 133 MG/DL TRIGLYCERIDES (test code = 2232) 81 MG/DL HDL CHOLESTEROL (test code = 2220) 43 MG/DL CALC LDL CHOL (test code = 2237) 74 MG/DL RISK RATIO LDL/HDL (test cod e = 2238) 1.72 RATIO Gunnar LoyaHEMOGLOBIN [id number] 00:00:00* Test Item Value Reference Range Interpretation Comme nts HEMOGLOBIN A1c (test code = 06291) 7.9 % Gunnar LoyaCOMPREHENSIVE METABOLIC [id number] 00:00:00* Test Item Value Reference Range Interpretation Comme nts GLUCOSE (test code = 2217) 123 MG/DL BUN (test code = 2208) 19 MG/DL CREATININE (test code = 2214) 1.07 MG/DL eGFR (2020 CKD-EPI) (test co de = 75810) 77 ML/MIN/1.73 CALC BUN/CREAT (test code = 2235) 18 RATIO SODIUM (test code = 2231) 142 MEQ/L POTASSIUM (test code = 2228) 4.3 MEQ/L CHLORIDE (test code = 2215) 106 MEQ/L CARBON DIOXIDE (test code = 2206) 24 MEQ/L CALCIUM (test code = 2209) 9.1 MG/DL PROTEIN, TOTAL (test code = 2229) 6.2 G/DL ALBUMIN (test code = 2201) 4.3 G/DL CALC GLOBULIN (test code = 2240) 1.9 G/DL CALC A/G RATIO (test code = 2234) 2.3 RATIO BILIRUBIN, TOTAL (test code = 2207) 0.4 MG/DL ALKALINE PHOSPHATASE (test code = 2204) 103 U/L AST (test code = 2218) 21 U/L ALT (test code = 2219) 27 U/L Gunnar LoyaURINALYSIS W/REFLEX [id number] 00:00:00* Test Item Value Reference Range Interpretation Comme nts COLOR (test code = 1501) DARK YELLOW APPEARANCE (test code = 1502) CLEAR SPECIFIC GRAVITY (test code = 1503) 1.021 LEUKOCYTE ESTERASE (test cod e = 1504) NEGATIVE NITRITE (test code = 1505) NEGATIVE pH (test code = 1506) 6.0 PROTEIN (test code = 1507) NEGATIVE GLUCOSE (test code = 1508) NEGATIVE KETONES (test code = 1509) NEGATIVE UROBILINOGEN (test code = 1510) 1.0 MG/DL BILIRUBIN (test code = 1511) NEGATIVE OCCULT BLOOD (test code = 1512) NEGATIVE WHITE BLOOD CELLS (test code = 1513) 0-5 /HPF RED BLOOD CELLS (test code = 1514) 0-2 /HPF EPITHELIAL CELLS (test code = 22913) 0-5 /HPF BACTERIA (test code = 1515) NONE SEEN CASTS, HYALINE (test code = 1517) NONE SEEN Gunnar LoyaALBUMIN/CREATININE RATIO, RANDOM [id number] 00:00:00* Test Item Value Reference Range Interpretation Comme nts CREATININE, URINE, CONC. (te st code = 2072) 179.2 MG/DL ALBUMIN, URINE, RANDOM (test code = 70063) 2.1 MG/DL CALC ALBUMIN/CREAT, RND (genevieve t code = 25572) 12 MG/G Gunnar LoyaPSA, [id number] 00:00:00* Test Item Value Reference Range Interpretation Comme nts PSA, TOTAL (test code = 2606) 0.57 NG/ML Gunnar LoyaCBC W/AUTO [id number] 00:00:00* Test Item Value Reference Range Interpretation Comme nts WBC (test code = 1001) 5.5 K/UL RBC (test code = 1002) 4.57 M/UL HEMOGLOBIN (test code = 1003) 13.6 G/DL HEMATOCRIT (test code = 1004) 41.8 % MCV (test code = 1005) 91.5 fL MCH (test code = 1006) 29.8 PG MCHC (test code = 1007) 32.5 G/DL RDW (test code = 1038) 13.4 % NEUTROPHILS (test code = 1008) 69.0 % LYMPHOCYTES (test code = 1010) 20.7 % MONOCYTES (test code = 1011) 7.6 % EOSINOPHILS (test code = 1012) 1.5 % BASOPHILS (test code = 1013) 0.5 % IMMATURE GRANULOCYTES (test code = 1036) 0.7 % NUCLEATED RBCS (test code = 1065) 0.0 /100WBC'S PLATELET COUNT (test code = 1015) 145 K/UL ABSOLUTE NEUTROPHILS (test c ode = 1066) 3.79 K/UL ABSOLUTE LYMPHOCYTES (test c ode = 1067) 1.14 K/UL ABSOLUTE MONOCYTES (test cod e = 1068) 0.42 K/UL ABSOLUTE EOSINOPHILS (test c ode = 1040) 0.08 K/UL ABSOLUTE BASOPHILS (test cod e = 1069) 0.03 K/UL ABS IMMATURE GRANULOCYTES (t est code = 1020) 0.04 K/UL ABS NUCLEATED RBCS (test cod e = 35427) 0.00 K/UL Gunnar Coley AustinLIPID [id number] 00:00:00* Test Item Value Reference Range Interpretation Comme nts CHOLESTEROL (test code = 2210) 133 MG/DL TRIGLYCERIDES (test code = 2232) 81 MG/DL HDL CHOLESTEROL (test code = 2220) 43 MG/DL CALC LDL CHOL (test code = 2237) 74 MG/DL RISK RATIO LDL/HDL (test cod e = 2238) 1.72 RATIO Gunnar LoyaHEMOGLOBIN [id number] 00:00:00* Test Item Value Reference Range Interpretation Comme nts HEMOGLOBIN A1c (test code = 94908) 7.9 % Gunnar LoyaCOMPREHENSIVE METABOLIC [id number] 00:00:00* Test Item Value Reference Range Interpretation Comme nts GLUCOSE (test code = 2217) 123 MG/DL BUN (test code = 2208) 19 MG/DL CREATININE (test code = 2214) 1.07 MG/DL eGFR (2020 CKD-EPI) (test co de = 32468) 77 ML/MIN/1.73 CALC BUN/CREAT (test code = 2235) 18 RATIO SODIUM (test code = 2231) 142 MEQ/L POTASSIUM (test code = 2228) 4.3 MEQ/L CHLORIDE (test code = 2215) 106 MEQ/L CARBON DIOXIDE (test code = 2206) 24 MEQ/L CALCIUM (test code = 2209) 9.1 MG/DL PROTEIN, TOTAL (test code = 2229) 6.2 G/DL ALBUMIN (test code = 2201) 4.3 G/DL CALC GLOBULIN (test code = 2240) 1.9 G/DL CALC A/G RATIO (test code = 2234) 2.3 RATIO BILIRUBIN, TOTAL (test code = 2207) 0.4 MG/DL ALKALINE PHOSPHATASE (test code = 2204) 103 U/L AST (test code = 2218) 21 U/L ALT (test code = 2219) 27 U/L Gunnar LoyaURINALYSIS W/REFLEX [id number] 00:00:00* Test Item Value Reference Range Interpretation Comme nts COLOR (test code = 1501) DARK YELLOW APPEARANCE (test code = 1502) CLEAR SPECIFIC GRAVITY (test code = 1503) 1.021 LEUKOCYTE ESTERASE (test cod e = 1504) NEGATIVE NITRITE (test code = 1505) NEGATIVE pH (test code = 1506) 6.0 PROTEIN (test code = 1507) NEGATIVE GLUCOSE (test code = 1508) NEGATIVE KETONES (test code = 1509) NEGATIVE UROBILINOGEN (test code = 1510) 1.0 MG/DL BILIRUBIN (test code = 1511) NEGATIVE OCCULT BLOOD (test code = 1512) NEGATIVE WHITE BLOOD CELLS (test code = 1513) 0-5 /HPF RED BLOOD CELLS (test code = 1514) 0-2 /HPF EPITHELIAL CELLS (test code = 34588) 0-5 /HPF BACTERIA (test code = 1515) NONE SEEN CASTS, HYALINE (test code = 1517) NONE SEEN Gunnar LoyaALBUMIN/CREATININE RATIO, RANDOM [id number] 00:00:00* Test Item Value Reference Range Interpretation Comme nts CREATININE, URINE, CONC. (te st code = 2072) 179.2 MG/DL ALBUMIN, URINE, RANDOM (test code = 06614) 2.1 MG/DL CALC ALBUMIN/CREAT, RND (genevieve t code = 89484) 12 MG/G Gunnar LoyaPSA, [id number] 00:00:00* Test Item Value Reference Range Interpretation Comme nts PSA, TOTAL (test code = 2606) 0.57 NG/ML Gunnar LoyaCBC W/AUTO [id number] 00:00:00* Test Item Value Reference Range Interpretation Comme nts WBC (test code = 1001) 5.5 K/UL RBC (test code = 1002) 4.57 M/UL HEMOGLOBIN (test code = 1003) 13.6 G/DL HEMATOCRIT (test code = 1004) 41.8 % MCV (test code = 1005) 91.5 fL MCH (test code = 1006) 29.8 PG MCHC (test code = 1007) 32.5 G/DL RDW (test code = 1038) 13.4 % NEUTROPHILS (test code = 1008) 69.0 % LYMPHOCYTES (test code = 1010) 20.7 % MONOCYTES (test code = 1011) 7.6 % EOSINOPHILS (test code = 1012) 1.5 % BASOPHILS (test code = 1013) 0.5 % IMMATURE GRANULOCYTES (test code = 1036) 0.7 % NUCLEATED RBCS (test code = 1065) 0.0 /100WBC'S PLATELET COUNT (test code = 1015) 145 K/UL ABSOLUTE NEUTROPHILS (test c ode = 1066) 3.79 K/UL ABSOLUTE LYMPHOCYTES (test c ode = 1067) 1.14 K/UL ABSOLUTE MONOCYTES (test cod e = 1068) 0.42 K/UL ABSOLUTE EOSINOPHILS (test c ode = 1040) 0.08 K/UL ABSOLUTE BASOPHILS (test cod e = 1069) 0.03 K/UL ABS IMMATURE GRANULOCYTES (t est code = 1020) 0.04 K/UL ABS NUCLEATED RBCS (test cod e = 08765) 0.00 K/UL Gunnar LoyaLIPID [id number] 00:00:00* Test Item Value Reference Range Interpretation Comme nts CHOLESTEROL (test code = 2210) 133 MG/DL TRIGLYCERIDES (test code = 2232) 81 MG/DL HDL CHOLESTEROL (test code = 2220) 43 MG/DL CALC LDL CHOL (test code = 2237) 74 MG/DL RISK RATIO LDL/HDL (test cod e = 2238) 1.72 RATIO Gunnar LoyaHEMOGLOBIN [id number] 00:00:00* Test Item Value Reference Range Interpretation Comme nts HEMOGLOBIN A1c (test code = 06511) 7.9 % Gunnar LoyaCOMPREHENSIVE METABOLIC [id number] 00:00:00* Test Item Value Reference Range Interpretation Comme nts GLUCOSE (test code = 2217) 123 MG/DL BUN (test code = 2208) 19 MG/DL CREATININE (test code = 2214) 1.07 MG/DL eGFR (2020 CKD-EPI) (test co de = 85818) 77 ML/MIN/1.73 CALC BUN/CREAT (test code = 2235) 18 RATIO SODIUM (test code = 2231) 142 MEQ/L POTASSIUM (test code = 2228) 4.3 MEQ/L CHLORIDE (test code = 2215) 106 MEQ/L CARBON DIOXIDE (test code = 2206) 24 MEQ/L CALCIUM (test code = 2209) 9.1 MG/DL PROTEIN, TOTAL (test code = 2229) 6.2 G/DL ALBUMIN (test code = 2201) 4.3 G/DL CALC GLOBULIN (test code = 2240) 1.9 G/DL CALC A/G RATIO (test code = 2234) 2.3 RATIO BILIRUBIN, TOTAL (test code = 2207) 0.4 MG/DL ALKALINE PHOSPHATASE (test code = 2204) 103 U/L AST (test code = 2218) 21 U/L ALT (test code = 2219) 27 U/L Gunnar LoyaURINALYSIS W/REFLEX [id number] 00:00:00* Test Item Value Reference Range Interpretation Comme nts COLOR (test code = 1501) DARK YELLOW APPEARANCE (test code = 1502) CLEAR SPECIFIC GRAVITY (test code = 1503) 1.021 LEUKOCYTE ESTERASE (test cod e = 1504) NEGATIVE NITRITE (test code = 1505) NEGATIVE pH (test code = 1506) 6.0 PROTEIN (test code = 1507) NEGATIVE GLUCOSE (test code = 1508) NEGATIVE KETONES (test code = 1509) NEGATIVE UROBILINOGEN (test code = 1510) 1.0 MG/DL BILIRUBIN (test code = 1511) NEGATIVE OCCULT BLOOD (test code = 1512) NEGATIVE WHITE BLOOD CELLS (test code = 1513) 0-5 /HPF RED BLOOD CELLS (test code = 1514) 0-2 /HPF EPITHELIAL CELLS (test code = 72661) 0-5 /HPF BACTERIA (test code = 1515) NONE SEEN CASTS, HYALINE (test code = 1517) NONE SEEN Gunnar LoyaALBUMIN/CREATININE RATIO, RANDOM [id number] 00:00:00* Test Item Value Reference Range Interpretation Comme nts CREATININE, URINE, CONC. (te st code = 2072) 179.2 MG/DL ALBUMIN, URINE, RANDOM (test code = 11758) 2.1 MG/DL CALC ALBUMIN/CREAT, RND (genevieve t code = 29882) 12 MG/G Gunnar LoyaPSA, [id number] 00:00:00* Test Item Value Reference Range Interpretation Comme nts PSA, TOTAL (test code = 2606) 0.57 NG/ML Gunnar LyoaCBC W/AUTO [id number] 00:00:00* Test Item Value Reference Range Interpretation Comme nts WBC (test code = 1001) 5.5 K/UL RBC (test code = 1002) 4.57 M/UL HEMOGLOBIN (test code = 1003) 13.6 G/DL HEMATOCRIT (test code = 1004) 41.8 % MCV (test code = 1005) 91.5 fL MCH (test code = 1006) 29.8 PG MCHC (test code = 1007) 32.5 G/DL RDW (test code = 1038) 13.4 % NEUTROPHILS (test code = 1008) 69.0 % LYMPHOCYTES (test code = 1010) 20.7 % MONOCYTES (test code = 1011) 7.6 % EOSINOPHILS (test code = 1012) 1.5 % BASOPHILS (test code = 1013) 0.5 % IMMATURE GRANULOCYTES (test code = 1036) 0.7 % NUCLEATED RBCS (test code = 1065) 0.0 /100WBC'S PLATELET COUNT (test code = 1015) 145 K/UL ABSOLUTE NEUTROPHILS (test c ode = 1066) 3.79 K/UL ABSOLUTE LYMPHOCYTES (test c ode = 1067) 1.14 K/UL ABSOLUTE MONOCYTES (test cod e = 1068) 0.42 K/UL ABSOLUTE EOSINOPHILS (test c ode = 1040) 0.08 K/UL ABSOLUTE BASOPHILS (test cod e = 1069) 0.03 K/UL ABS IMMATURE GRANULOCYTES (t est code = 1020) 0.04 K/UL ABS NUCLEATED RBCS (test cod e = 04619) 0.00 K/UL Gunnar LoyaLIPID [id number] 00:00:00* Test Item Value Reference Range Interpretation Comme nts CHOLESTEROL (test code = 2210) 133 MG/DL TRIGLYCERIDES (test code = 2232) 81 MG/DL HDL CHOLESTEROL (test code = 2220) 43 MG/DL CALC LDL CHOL (test code = 2237) 74 MG/DL RISK RATIO LDL/HDL (test cod e = 2238) 1.72 RATIO Gunnar LoyaHEMOGLOBIN [id number] 00:00:00* Test Item Value Reference Range Interpretation Comme nts HEMOGLOBIN A1c (test code = 44401) 7.9 % Gunnar LoyaCOMPREHENSIVE METABOLIC [id number] 00:00:00* Test Item Value Reference Range Interpretation Comme nts GLUCOSE (test code = 2217) 123 MG/DL BUN (test code = 2208) 19 MG/DL CREATININE (test code = 2214) 1.07 MG/DL eGFR (2020 CKD-EPI) (test co de = 03122) 77 ML/MIN/1.73 CALC BUN/CREAT (test code = 2235) 18 RATIO SODIUM (test code = 2231) 142 MEQ/L POTASSIUM (test code = 2228) 4.3 MEQ/L CHLORIDE (test code = 2215) 106 MEQ/L CARBON DIOXIDE (test code = 2206) 24 MEQ/L CALCIUM (test code = 2209) 9.1 MG/DL PROTEIN, TOTAL (test code = 2229) 6.2 G/DL ALBUMIN (test code = 2201) 4.3 G/DL CALC GLOBULIN (test code = 2240) 1.9 G/DL CALC A/G RATIO (test code = 2234) 2.3 RATIO BILIRUBIN, TOTAL (test code = 2207) 0.4 MG/DL ALKALINE PHOSPHATASE (test code = 2204) 103 U/L AST (test code = 2218) 21 U/L ALT (test code = 2219) 27 U/L Gunnar LoyaURINALYSIS W/REFLEX [id number] 00:00:00* Test Item Value Reference Range Interpretation Comme nts COLOR (test code = 1501) DARK YELLOW APPEARANCE (test code = 1502) CLEAR SPECIFIC GRAVITY (test code = 1503) 1.021 LEUKOCYTE ESTERASE (test cod e = 1504) NEGATIVE NITRITE (test code = 1505) NEGATIVE pH (test code = 1506) 6.0 PROTEIN (test code = 1507) NEGATIVE GLUCOSE (test code = 1508) NEGATIVE KETONES (test code = 1509) NEGATIVE UROBILINOGEN (test code = 1510) 1.0 MG/DL BILIRUBIN (test code = 1511) NEGATIVE OCCULT BLOOD (test code = 1512) NEGATIVE WHITE BLOOD CELLS (test code = 1513) 0-5 /HPF RED BLOOD CELLS (test code = 1514) 0-2 /HPF EPITHELIAL CELLS (test code = 33122) 0-5 /HPF BACTERIA (test code = 1515) NONE SEEN CASTS, HYALINE (test code = 1517) NONE SEEN Gunnar Coley AustinALBUMIN/CREATININE RATIO, RANDOM [id number] 00:00:00* Test Item Value Reference Range Interpretation Comme nts CREATININE, URINE, CONC. (te st code = 2072) 179.2 MG/DL ALBUMIN, URINE, RANDOM (test code = 94091) 2.1 MG/DL CALC ALBUMIN/CREAT, RND (genevieve t code = 07796) 12 MG/G Gunnar LoyaPSA, [id number] 00:00:00* Test Item Value Reference Range Interpretation Comme nts PSA, TOTAL (test code = 2606) 0.57 NG/ML Gunnar LoyaCBC W/AUTO [id number] 00:00:00* Test Item Value Reference Range Interpretation Comme nts WBC (test code = 1001) 5.5 K/UL RBC (test code = 1002) 4.57 M/UL HEMOGLOBIN (test code = 1003) 13.6 G/DL HEMATOCRIT (test code = 1004) 41.8 % MCV (test code = 1005) 91.5 fL MCH (test code = 1006) 29.8 PG MCHC (test code = 1007) 32.5 G/DL RDW (test code = 1038) 13.4 % NEUTROPHILS (test code = 1008) 69.0 % LYMPHOCYTES (test code = 1010) 20.7 % MONOCYTES (test code = 1011) 7.6 % EOSINOPHILS (test code = 1012) 1.5 % BASOPHILS (test code = 1013) 0.5 % IMMATURE GRANULOCYTES (test code = 1036) 0.7 % NUCLEATED RBCS (test code = 1065) 0.0 /100WBC'S PLATELET COUNT (test code = 1015) 145 K/UL ABSOLUTE NEUTROPHILS (test c ode = 1066) 3.79 K/UL ABSOLUTE LYMPHOCYTES (test c ode = 1067) 1.14 K/UL ABSOLUTE MONOCYTES (test cod e = 1068) 0.42 K/UL ABSOLUTE EOSINOPHILS (test c ode = 1040) 0.08 K/UL ABSOLUTE BASOPHILS (test cod e = 1069) 0.03 K/UL ABS IMMATURE GRANULOCYTES (t est code = 1020) 0.04 K/UL ABS NUCLEATED RBCS (test cod e = 07579) 0.00 K/UL Gunnar LoyaLIPID [id number] 00:00:00* Test Item Value Reference Range Interpretation Comme nts CHOLESTEROL (test code = 2210) 133 MG/DL TRIGLYCERIDES (test code = 2232) 81 MG/DL HDL CHOLESTEROL (test code = 2220) 43 MG/DL CALC LDL CHOL (test code = 2237) 74 MG/DL RISK RATIO LDL/HDL (test cod e = 2238) 1.72 RATIO Gunnar LoyaHEMOGLOBIN [id number] 00:00:00* Test Item Value Reference Range Interpretation Comme nts HEMOGLOBIN A1c (test code = 24631) 7.9 % Gunnar LoyaCOMPREHENSIVE METABOLIC [id number] 00:00:00* Test Item Value Reference Range Interpretation Comme nts GLUCOSE (test code = 2217) 123 MG/DL BUN (test code = 2208) 19 MG/DL CREATININE (test code = 2214) 1.07 MG/DL eGFR (2020 CKD-EPI) (test co de = 90931) 77 ML/MIN/1.73 CALC BUN/CREAT (test code = 2235) 18 RATIO SODIUM (test code = 2231) 142 MEQ/L POTASSIUM (test code = 2228) 4.3 MEQ/L CHLORIDE (test code = 2215) 106 MEQ/L CARBON DIOXIDE (test code = 2206) 24 MEQ/L CALCIUM (test code = 2209) 9.1 MG/DL PROTEIN, TOTAL (test code = 2229) 6.2 G/DL ALBUMIN (test code = 2201) 4.3 G/DL CALC GLOBULIN (test code = 2240) 1.9 G/DL CALC A/G RATIO (test code = 2234) 2.3 RATIO BILIRUBIN, TOTAL (test code = 2207) 0.4 MG/DL ALKALINE PHOSPHATASE (test code = 2204) 103 U/L AST (test code = 2218) 21 U/L ALT (test code = 2219) 27 U/L Gunnar LoyaURINALYSIS W/REFLEX [id number] 00:00:00* Test Item Value Reference Range Interpretation Comme nts COLOR (test code = 1501) DARK YELLOW APPEARANCE (test code = 1502) CLEAR SPECIFIC GRAVITY (test code = 1503) 1.021 LEUKOCYTE ESTERASE (test cod e = 1504) NEGATIVE NITRITE (test code = 1505) NEGATIVE pH (test code = 1506) 6.0 PROTEIN (test code = 1507) NEGATIVE GLUCOSE (test code = 1508) NEGATIVE KETONES (test code = 1509) NEGATIVE UROBILINOGEN (test code = 1510) 1.0 MG/DL BILIRUBIN (test code = 1511) NEGATIVE OCCULT BLOOD (test code = 1512) NEGATIVE WHITE BLOOD CELLS (test code = 1513) 0-5 /HPF RED BLOOD CELLS (test code = 1514) 0-2 /HPF EPITHELIAL CELLS (test code = 86313) 0-5 /HPF BACTERIA (test code = 1515) NONE SEEN CASTS, HYALINE (test code = 1517) NONE SEEN Gunnar LoyaALBUMIN/CREATININE RATIO, RANDOM [id number] 00:00:00* Test Item Value Reference Range Interpretation Comme nts CREATININE, URINE, CONC. (te st code = 2072) 179.2 MG/DL ALBUMIN, URINE, RANDOM (test code = 26641) 2.1 MG/DL CALC ALBUMIN/CREAT, RND (genevieve t code = 39944) 12 MG/G Gunnar LoyaPSA, [id number] 00:00:00* Test Item Value Reference Range Interpretation Comme nts PSA, TOTAL (test code = 2606) 0.57 NG/ML Gunnar LoyaHERPES SIMPLEX AB, [id number] 00:00:00* Test Item Value Reference Range Interpretation Comme nts HERPES SIMPLEX AB, IgM (test code = 88914) 0.77 INDEX Gunnar Coley AustinTRICHOMONAS, URINE, [id number] 00:00:00* Test Item Value Reference Range Interpretation Comme nts TRICHOMONAS, NAAT, URINE (te st code = 12377) NEGATIVE Gunnar Coley AustinCT/NG, NAAT, [id number] 00:00:00* Test Item Value Reference Range Interpretation Comme nts CHLAMYDIA, NAAT, URINE (test code = 93121) NEGATIVE GONORRHEA, NAAT, URINE (test code = 94250) NEGATIVE Gunnar Coley AustinHERPES SIMPLEX AB, [id number] 00:00:00* Test Item Value Reference Range Interpretation Comme nts HERPES SIMPLEX AB, IgM (test code = 23020) 0.77 INDEX Gunnar Coley AustinTRICHOMONAS, URINE, [id number] 00:00:00* Test Item Value Reference Range Interpretation Comme nts TRICHOMONAS, NAAT, URINE (te st code = 26813) NEGATIVE Gunnar Coley AustinCT/NG, NAAT, [id number] 00:00:00* Test Item Value Reference Range Interpretation Comme nts CHLAMYDIA, NAAT, URINE (test code = 34976) NEGATIVE GONORRHEA, NAAT, URINE (test code = 41208) NEGATIVE Gunanr Coley AustinHERPES SIMPLEX AB, [id number] 00:00:00* Test Item Value Reference Range Interpretation Comme nts HERPES SIMPLEX AB, IgM (test code = 25178) 0.77 INDEX Gunnar Coley AustinTRICHOMONAS, URINE, [id number] 00:00:00* Test Item Value Reference Range Interpretation Comme nts TRICHOMONAS, NAAT, URINE (te st code = 04964) NEGATIVE Gunnar Coley AustinCT/NG, NAAT, [id number] 00:00:00* Test Item Value Reference Range Interpretation Comme nts CHLAMYDIA, NAAT, URINE (test code = 56971) NEGATIVE GONORRHEA, NAAT, URINE (test code = 19063) NEGATIVE Gunnar Coley AustinHERPES SIMPLEX AB, [id number] 00:00:00* Test Item Value Reference Range Interpretation Comme nts HERPES SIMPLEX AB, IgM (test code = 36130) 0.77 INDEX Gunnar Coley AustinTRICHOMONAS, URINE, [id number] 00:00:00* Test Item Value Reference Range Interpretation Comme nts TRICHOMONAS, NAAT, URINE (te st code = 44552) NEGATIVE Gunnar Coley AustinCT/NG, NAAT, [id number] 00:00:00* Test Item Value Reference Range Interpretation Comme nts CHLAMYDIA, NAAT, URINE (test code = 52808) NEGATIVE GONORRHEA, NAAT, URINE (test code = 75331) NEGATIVE Gunnar Coley AustinHERPES SIMPLEX AB, [id number] 00:00:00* Test Item Value Reference Range Interpretation Comme nts HERPES SIMPLEX AB, IgM (test code = 13420) 0.77 INDEX Gunnar Coley AustinTRICHOMONAS, URINE, [id number] 00:00:00* Test Item Value Reference Range Interpretation Comme nts TRICHOMONAS, NAAT, URINE (te st code = 91131) NEGATIVE Gunnar Coley AustinCT/NG, NAAT, [id number] 00:00:00* Test Item Value Reference Range Interpretation Comme nts CHLAMYDIA, NAAT, URINE (test code = 79114) NEGATIVE GONORRHEA, NAAT, URINE (test code = 79942) NEGATIVE Gunnar LoyaHERPES SIMPLEX AB, [id number] 00:00:00* Test Item Value Reference Range Interpretation Comme nts HERPES SIMPLEX AB, IgM (test code = 55369) 0.77 INDEX Gunnar Coley AustinTRICHOMONAS, URINE, [id number] 00:00:00* Test Item Value Reference Range Interpretation Comme nts TRICHOMONAS, NAAT, URINE (te st code = 62393) NEGATIVE Gunnar Coley AustinCT/NG, NAAT, [id number] 00:00:00* Test Item Value Reference Range Interpretation Comme nts CHLAMYDIA, NAAT, URINE (test code = 55339) NEGATIVE GONORRHEA, NAAT, URINE (test code = 08319) NEGATIVE Gunnar LoyaCBC W/AUTO [id number] 00:00:00* Test Item Value Reference Range Interpretation Comme nts WBC (test code = 1001) 5.6 K/UL RBC (test code = 1002) 4.59 M/UL HEMOGLOBIN (test code = 1003) 13.8 G/DL HEMATOCRIT (test code = 1004) 41.5 % MCV (test code = 1005) 90.4 fL MCH (test code = 1006) 30.1 PG MCHC (test code = 1007) 33.3 G/DL RDW (test code = 1038) 13.0 % NEUTROPHILS (test code = 1008) 66.6 % LYMPHOCYTES (test code = 1010) 21.6 % MONOCYTES (test code = 1011) 8.4 % EOSINOPHILS (test code = 1012) 1.3 % BASOPHILS (test code = 1013) 0.5 % IMMATURE GRANULOCYTES (test code = 1036) 1.6 % NUCLEATED RBCS (test code = 1065) 0.0 /100WBC'S PLATELET COUNT (test code = 1015) 126 K/UL ABSOLUTE NEUTROPHILS (test c ode = 1066) 3.73 K/UL ABSOLUTE LYMPHOCYTES (test c ode = 1067) 1.21 K/UL ABSOLUTE MONOCYTES (test cod e = 1068) 0.47 K/UL ABSOLUTE EOSINOPHILS (test c ode = 1040) 0.07 K/UL ABSOLUTE BASOPHILS (test cod e = 1069) 0.03 K/UL ABS IMMATURE GRANULOCYTES (t est code = 1020) 0.09 K/UL ABS NUCLEATED RBCS (test cod e = 13210) 0.00 K/UL Gunnar Coley AustinLIPID [id number] 00:00:00* Test Item Value Reference Range Interpretation Comme nts CHOLESTEROL (test code = 2210) 153 MG/DL TRIGLYCERIDES (test code = 2232) 139 MG/DL HDL CHOLESTEROL (test code = 2220) 40 MG/DL CALC LDL CHOL (test code = 2237) 89 MG/DL RISK RATIO LDL/HDL (test cod e = 2238) 2.23 RATIO Gunnar LoyaHEMOGLOBIN [id number] 00:00:00* Test Item Value Reference Range Interpretation Comme nts HEMOGLOBIN A1c (test code = 97981) 9.8 % Gunnar LoyaCOMPREHENSIVE METABOLIC [id number] 00:00:00* Test Item Value Reference Range Interpretation Comme nts GLUCOSE (test code = 2217) 231 MG/DL BUN (test code = 2208) 20 MG/DL CREATININE (test code = 2214) 0.97 MG/DL eGFR (2020 CKD-EPI) (test co de = 06737) 86 ML/MIN/1.73 CALC BUN/CREAT (test code = 2235) 21 RATIO SODIUM (test code = 2231) 140 MEQ/L POTASSIUM (test code = 2228) 4.6 MEQ/L CHLORIDE (test code = 2215) 103 MEQ/L CARBON DIOXIDE (test code = 2206) 20 MEQ/L CALCIUM (test code = 2209) 9.6 MG/DL PROTEIN, TOTAL (test code = 2229) 6.8 G/DL ALBUMIN (test code = 2201) 4.4 G/DL CALC GLOBULIN (test code = 2240) 2.4 G/DL CALC A/G RATIO (test code = 2234) 1.8 RATIO BILIRUBIN, TOTAL (test code = 2207) 0.5 MG/DL ALKALINE PHOSPHATASE (test code = 2204) 108 U/L AST (test code = 2218) 15 U/L ALT (test code = 2219) 24 U/L Gunnar LoyaURINALYSIS W/REFLEX [id number] 00:00:00* Test Item Value Reference Range Interpretation Comme nts COLOR (test code = 1501) YELLOW APPEARANCE (test code = 1502) CLEAR SPECIFIC GRAVITY (test code = 1503) 1.033 LEUKOCYTE ESTERASE (test cod e = 1504) NEGATIVE NITRITE (test code = 1505) NEGATIVE pH (test code = 1506) 6.5 PROTEIN (test code = 1507) NEGATIVE GLUCOSE (test code = 1508) 3+ KETONES (test code = 1509) TRACE UROBILINOGEN (test code = 1510) 0.2 MG/DL BILIRUBIN (test code = 1511) NEGATIVE OCCULT BLOOD (test code = 1512) NEGATIVE Gunnar Brijesh VincenzoHEPATITIS C [id number] 00:00:00* Test Item Value Reference Range Interpretation Comme nts HEPATITIS C ANTIBODY (test c ode = 4666) NON-REACTIVE Gunnar Brijesh [id number] 00:00:00* Test Item Value Reference Range Interpretation Comme nts RPR RESULT (test code = 3501) NON-REACTIVE RPR TITER (test code = 3500) NOT INDIC. TITER Gunnar LoyaALBUMIN/CREATININE RATIO, RANDOM [id number] 00:00:00* Test Item Value Reference Range Interpretation Comme nts CREATININE, URINE, CONC. (te st code = 2072) 115.4 MG/DL ALBUMIN, URINE, RANDOM (test code = 19255) 1.2 MG/DL CALC ALBUMIN/CREAT, RND (genevieve t code = 96114) 10 MG/G Gunnar LoyaHERPES SIMPLEX 1/2 ANTIBODY, [id number] 00:00:00* Test Item Value Reference Range Interpretation Comme nts HERPES SIMPLEX 1 AB, IgG (te st code = 69754) 296.000 INDEX HERPES SIMPLEX 2 AB, IgG (te st code = 86981) 0.075 INDEX Gunnar LoyaHIV 1/2 4TH GEN, RFLX [id number] 00:00:00* Test Item Value Reference Range Interpretation Comme nts HIV 1/2 4TH GEN, RFLX CONF ( test code = 3514) NON-REACTIVE Gunnar LoyaCBC W/AUTO [id number] 00:00:00* Test Item Value Reference Range Interpretation Comme nts WBC (test code = 1001) 5.6 K/UL RBC (test code = 1002) 4.59 M/UL HEMOGLOBIN (test code = 1003) 13.8 G/DL HEMATOCRIT (test code = 1004) 41.5 % MCV (test code = 1005) 90.4 fL MCH (test code = 1006) 30.1 PG MCHC (test code = 1007) 33.3 G/DL RDW (test code = 1038) 13.0 % NEUTROPHILS (test code = 1008) 66.6 % LYMPHOCYTES (test code = 1010) 21.6 % MONOCYTES (test code = 1011) 8.4 % EOSINOPHILS (test code = 1012) 1.3 % BASOPHILS (test code = 1013) 0.5 % IMMATURE GRANULOCYTES (test code = 1036) 1.6 % NUCLEATED RBCS (test code = 1065) 0.0 /100WBC'S PLATELET COUNT (test code = 1015) 126 K/UL ABSOLUTE NEUTROPHILS (test c ode = 1066) 3.73 K/UL ABSOLUTE LYMPHOCYTES (test c ode = 1067) 1.21 K/UL ABSOLUTE MONOCYTES (test cod e = 1068) 0.47 K/UL ABSOLUTE EOSINOPHILS (test c ode = 1040) 0.07 K/UL ABSOLUTE BASOPHILS (test cod e = 1069) 0.03 K/UL ABS IMMATURE GRANULOCYTES (t est code = 1020) 0.09 K/UL ABS NUCLEATED RBCS (test cod e = 59832) 0.00 K/UL Gunnar LoyaLIPID [id number] 00:00:00* Test Item Value Reference Range Interpretation Comme nts CHOLESTEROL (test code = 2210) 153 MG/DL TRIGLYCERIDES (test code = 2232) 139 MG/DL HDL CHOLESTEROL (test code = 2220) 40 MG/DL CALC LDL CHOL (test code = 2237) 89 MG/DL RISK RATIO LDL/HDL (test cod e = 2238) 2.23 RATIO Gunnar LoyaHEMOGLOBIN [id number] 00:00:00* Test Item Value Reference Range Interpretation Comme nts HEMOGLOBIN A1c (test code = 67979) 9.8 % Gunnar LoyaCOMPREHENSIVE METABOLIC [id number] 00:00:00* Test Item Value Reference Range Interpretation Comme nts GLUCOSE (test code = 2217) 231 MG/DL BUN (test code = 2208) 20 MG/DL CREATININE (test code = 2214) 0.97 MG/DL eGFR (2020 CKD-EPI) (test co de = 36255) 86 ML/MIN/1.73 CALC BUN/CREAT (test code = 2235) 21 RATIO SODIUM (test code = 2231) 140 MEQ/L POTASSIUM (test code = 2228) 4.6 MEQ/L CHLORIDE (test code = 2215) 103 MEQ/L CARBON DIOXIDE (test code = 2206) 20 MEQ/L CALCIUM (test code = 2209) 9.6 MG/DL PROTEIN, TOTAL (test code = 2229) 6.8 G/DL ALBUMIN (test code = 2201) 4.4 G/DL CALC GLOBULIN (test code = 2240) 2.4 G/DL CALC A/G RATIO (test code = 2234) 1.8 RATIO BILIRUBIN, TOTAL (test code = 2207) 0.5 MG/DL ALKALINE PHOSPHATASE (test code = 2204) 108 U/L AST (test code = 2218) 15 U/L ALT (test code = 2219) 24 U/L Gunnar Coley AustinURINALYSIS W/REFLEX [id number] 00:00:00* Test Item Value Reference Range Interpretation Comme nts COLOR (test code = 1501) YELLOW APPEARANCE (test code = 1502) CLEAR SPECIFIC GRAVITY (test code = 1503) 1.033 LEUKOCYTE ESTERASE (test cod e = 1504) NEGATIVE NITRITE (test code = 1505) NEGATIVE pH (test code = 1506) 6.5 PROTEIN (test code = 1507) NEGATIVE GLUCOSE (test code = 1508) 3+ KETONES (test code = 1509) TRACE UROBILINOGEN (test code = 1510) 0.2 MG/DL BILIRUBIN (test code = 1511) NEGATIVE OCCULT BLOOD (test code = 1512) NEGATIVE Gunnar LoyaHEPATITIS C [id number] 00:00:00* Test Item Value Reference Range Interpretation Comme pierce HEPATITIS C ANTIBODY (test c ode = 4675) NON-REACTIVE Gunnar [id number] 00:00:00* Test Item Value Reference Range Interpretation Comme nts RPR RESULT (test code = 3501) NON-REACTIVE RPR TITER (test code = 3500) NOT INDIC. TITER Gunnar LoyaALBUMIN/CREATININE RATIO, RANDOM [id number] 00:00:00* Test Item Value Reference Range Interpretation Comme pierce CREATININE, URINE, CONC. (te st code = 2072) 115.4 MG/DL ALBUMIN, URINE, RANDOM (test code = 98380) 1.2 MG/DL CALC ALBUMIN/CREAT, RND (genevieve t code = 73497) 10 MG/G Gunnar LoyaHERPES SIMPLEX 1/2 ANTIBODY, [id number] 00:00:00* Test Item Value Reference Range Interpretation Comme pierce HERPES SIMPLEX 1 AB, IgG (te st code = 00397) 296.000 INDEX HERPES SIMPLEX 2 AB, IgG (te st code = 84986) 0.075 INDEX Gunnar LoyaHIV 1/2 4TH GEN, RFLX [id number] 00:00:00* Test Item Value Reference Range Interpretation Comme pierce HIV 1/2 4TH GEN, RFLX CONF ( test code = 3514) NON-REACTIVE Gunnar LoyaCBC W/AUTO [id number] 00:00:00* Test Item Value Reference Range Interpretation Comme pierce WBC (test code = 1001) 5.6 K/UL RBC (test code = 1002) 4.59 M/UL HEMOGLOBIN (test code = 1003) 13.8 G/DL HEMATOCRIT (test code = 1004) 41.5 % MCV (test code = 1005) 90.4 fL MCH (test code = 1006) 30.1 PG MCHC (test code = 1007) 33.3 G/DL RDW (test code = 1038) 13.0 % NEUTROPHILS (test code = 1008) 66.6 % LYMPHOCYTES (test code = 1010) 21.6 % MONOCYTES (test code = 1011) 8.4 % EOSINOPHILS (test code = 1012) 1.3 % BASOPHILS (test code = 1013) 0.5 % IMMATURE GRANULOCYTES (test code = 1036) 1.6 % NUCLEATED RBCS (test code = 1065) 0.0 /100WBC'S PLATELET COUNT (test code = 1015) 126 K/UL ABSOLUTE NEUTROPHILS (test c ode = 1066) 3.73 K/UL ABSOLUTE LYMPHOCYTES (test c ode = 1067) 1.21 K/UL ABSOLUTE MONOCYTES (test cod e = 1068) 0.47 K/UL ABSOLUTE EOSINOPHILS (test c ode = 1040) 0.07 K/UL ABSOLUTE BASOPHILS (test cod e = 1069) 0.03 K/UL ABS IMMATURE GRANULOCYTES (t est code = 1020) 0.09 K/UL ABS NUCLEATED RBCS (test cod e = 89734) 0.00 K/UL Gunnar LoyaLIPID [id number] 00:00:00* Test Item Value Reference Range Interpretation Comme nts CHOLESTEROL (test code = 2210) 153 MG/DL TRIGLYCERIDES (test code = 2232) 139 MG/DL HDL CHOLESTEROL (test code = 2220) 40 MG/DL CALC LDL CHOL (test code = 2237) 89 MG/DL RISK RATIO LDL/HDL (test cod e = 2238) 2.23 RATIO Gunnar LoyaHEMOGLOBIN [id number] 00:00:00* Test Item Value Reference Range Interpretation Comme nts HEMOGLOBIN A1c (test code = 86116) 9.8 % Gunnar LoyaCOMPREHENSIVE METABOLIC [id number] 00:00:00* Test Item Value Reference Range Interpretation Comme nts GLUCOSE (test code = 2217) 231 MG/DL BUN (test code = 2208) 20 MG/DL CREATININE (test code = 2214) 0.97 MG/DL eGFR (2020 CKD-EPI) (test co de = 93812) 86 ML/MIN/1.73 CALC BUN/CREAT (test code = 2235) 21 RATIO SODIUM (test code = 2231) 140 MEQ/L POTASSIUM (test code = 2228) 4.6 MEQ/L CHLORIDE (test code = 2215) 103 MEQ/L CARBON DIOXIDE (test code = 2206) 20 MEQ/L CALCIUM (test code = 2209) 9.6 MG/DL PROTEIN, TOTAL (test code = 2229) 6.8 G/DL ALBUMIN (test code = 2201) 4.4 G/DL CALC GLOBULIN (test code = 2240) 2.4 G/DL CALC A/G RATIO (test code = 2234) 1.8 RATIO BILIRUBIN, TOTAL (test code = 2207) 0.5 MG/DL ALKALINE PHOSPHATASE (test code = 2204) 108 U/L AST (test code = 2218) 15 U/L ALT (test code = 2219) 24 U/L Gunnar LoyaURINALYSIS W/REFLEX [id number] 00:00:00* Test Item Value Reference Range Interpretation Comme nts COLOR (test code = 1501) YELLOW APPEARANCE (test code = 1502) CLEAR SPECIFIC GRAVITY (test code = 1503) 1.033 LEUKOCYTE ESTERASE (test cod e = 1504) NEGATIVE NITRITE (test code = 1505) NEGATIVE pH (test code = 1506) 6.5 PROTEIN (test code = 1507) NEGATIVE GLUCOSE (test code = 1508) 3+ KETONES (test code = 1509) TRACE UROBILINOGEN (test code = 1510) 0.2 MG/DL BILIRUBIN (test code = 1511) NEGATIVE OCCULT BLOOD (test code = 1512) NEGATIVE Gunnar LoyaHEPATITIS C [id number] 00:00:00* Test Item Value Reference Range Interpretation Comme nts HEPATITIS C ANTIBODY (test c ode = 4675) NON-REACTIVE Gunnar [id number] 00:00:00* Test Item Value Reference Range Interpretation Comme nts RPR RESULT (test code = 3501) NON-REACTIVE RPR TITER (test code = 3500) NOT INDIC. TITER Gunnar LoyaALBUMIN/CREATININE RATIO, RANDOM [id number] 00:00:00* Test Item Value Reference Range Interpretation Comme nts CREATININE, URINE, CONC. (te st code = 2072) 115.4 MG/DL ALBUMIN, URINE, RANDOM (test code = 29705) 1.2 MG/DL CALC ALBUMIN/CREAT, RND (genevieve t code = 01241) 10 MG/G Gunnar LoyaHERPES SIMPLEX 1/2 ANTIBODY, [id number] 00:00:00* Test Item Value Reference Range Interpretation Comme nts HERPES SIMPLEX 1 AB, IgG (te st code = 67647) 296.000 INDEX HERPES SIMPLEX 2 AB, IgG (te st code = 65817) 0.075 INDEX Gunnar LoyaHIV 1/2 4TH GEN, RFLX [id number] 00:00:00* Test Item Value Reference Range Interpretation Comme nts HIV 1/2 4TH GEN, RFLX CONF ( test code = 3514) NON-REACTIVE Gunnar LoyaCBC W/AUTO [id number] 00:00:00* Test Item Value Reference Range Interpretation Comme nts WBC (test code = 1001) 5.6 K/UL RBC (test code = 1002) 4.59 M/UL HEMOGLOBIN (test code = 1003) 13.8 G/DL HEMATOCRIT (test code = 1004) 41.5 % MCV (test code = 1005) 90.4 fL MCH (test code = 1006) 30.1 PG MCHC (test code = 1007) 33.3 G/DL RDW (test code = 1038) 13.0 % NEUTROPHILS (test code = 1008) 66.6 % LYMPHOCYTES (test code = 1010) 21.6 % MONOCYTES (test code = 1011) 8.4 % EOSINOPHILS (test code = 1012) 1.3 % BASOPHILS (test code = 1013) 0.5 % IMMATURE GRANULOCYTES (test code = 1036) 1.6 % NUCLEATED RBCS (test code = 1065) 0.0 /100WBC'S PLATELET COUNT (test code = 1015) 126 K/UL ABSOLUTE NEUTROPHILS (test c ode = 1066) 3.73 K/UL ABSOLUTE LYMPHOCYTES (test c ode = 1067) 1.21 K/UL ABSOLUTE MONOCYTES (test cod e = 1068) 0.47 K/UL ABSOLUTE EOSINOPHILS (test c ode = 1040) 0.07 K/UL ABSOLUTE BASOPHILS (test cod e = 1069) 0.03 K/UL ABS IMMATURE GRANULOCYTES (t est code = 1020) 0.09 K/UL ABS NUCLEATED RBCS (test cod e = 51492) 0.00 K/UL Gunnar LoyaLIPID [id number] 00:00:00* Test Item Value Reference Range Interpretation Comme nts CHOLESTEROL (test code = 2210) 153 MG/DL TRIGLYCERIDES (test code = 2232) 139 MG/DL HDL CHOLESTEROL (test code = 2220) 40 MG/DL CALC LDL CHOL (test code = 2237) 89 MG/DL RISK RATIO LDL/HDL (test cod e = 2238) 2.23 RATIO Gunnar LoyaHEMOGLOBIN [id number] 00:00:00* Test Item Value Reference Range Interpretation Comme nts HEMOGLOBIN A1c (test code = 22454) 9.8 % Gunnar LoyaCOMPREHENSIVE METABOLIC [id number] 00:00:00* Test Item Value Reference Range Interpretation Comme nts GLUCOSE (test code = 2217) 231 MG/DL BUN (test code = 2208) 20 MG/DL CREATININE (test code = 2214) 0.97 MG/DL eGFR (2020 CKD-EPI) (test co de = 74573) 86 ML/MIN/1.73 CALC BUN/CREAT (test code = 2235) 21 RATIO SODIUM (test code = 2231) 140 MEQ/L POTASSIUM (test code = 2228) 4.6 MEQ/L CHLORIDE (test code = 2215) 103 MEQ/L CARBON DIOXIDE (test code = 2206) 20 MEQ/L CALCIUM (test code = 2209) 9.6 MG/DL PROTEIN, TOTAL (test code = 2229) 6.8 G/DL ALBUMIN (test code = 2201) 4.4 G/DL CALC GLOBULIN (test code = 2240) 2.4 G/DL CALC A/G RATIO (test code = 2234) 1.8 RATIO BILIRUBIN, TOTAL (test code = 2207) 0.5 MG/DL ALKALINE PHOSPHATASE (test code = 2204) 108 U/L AST (test code = 2218) 15 U/L ALT (test code = 2219) 24 U/L Gunnar LoyaURINALYSIS W/REFLEX [id number] 00:00:00* Test Item Value Reference Range Interpretation Comme nts COLOR (test code = 1501) YELLOW APPEARANCE (test code = 1502) CLEAR SPECIFIC GRAVITY (test code = 1503) 1.033 LEUKOCYTE ESTERASE (test cod e = 1504) NEGATIVE NITRITE (test code = 1505) NEGATIVE pH (test code = 1506) 6.5 PROTEIN (test code = 1507) NEGATIVE GLUCOSE (test code = 1508) 3+ KETONES (test code = 1509) TRACE UROBILINOGEN (test code = 1510) 0.2 MG/DL BILIRUBIN (test code = 1511) NEGATIVE OCCULT BLOOD (test code = 1512) NEGATIVE Gunnar LoyaHEPATITIS C [id number] 00:00:00* Test Item Value Reference Range Interpretation Comme nts HEPATITIS C ANTIBODY (test c ode = 4675) NON-REACTIVE Gunnar [id number] 00:00:00* Test Item Value Reference Range Interpretation Comme nts RPR RESULT (test code = 3501) NON-REACTIVE RPR TITER (test code = 3500) NOT INDIC. TITER Gunnar LoyaALBUMIN/CREATININE RATIO, RANDOM [id number] 00:00:00* Test Item Value Reference Range Interpretation Comme nts CREATININE, URINE, CONC. (te st code = 2072) 115.4 MG/DL ALBUMIN, URINE, RANDOM (test code = 50666) 1.2 MG/DL CALC ALBUMIN/CREAT, RND (genevieve t code = 99131) 10 MG/G Gunnar LoyaHERPES SIMPLEX 1/2 ANTIBODY, [id number] 00:00:00* Test Item Value Reference Range Interpretation Comme nts HERPES SIMPLEX 1 AB, IgG (te st code = 72026) 296.000 INDEX HERPES SIMPLEX 2 AB, IgG (te st code = 08465) 0.075 INDEX Gunnar LoyaHIV 1/2 4TH GEN, RFLX [id number] 00:00:00* Test Item Value Reference Range Interpretation Comme pierce HIV 1/2 4TH GEN, RFLX CONF ( test code = 3514) NON-REACTIVE Gunnar LoyaCBC W/AUTO [id number] 00:00:00* Test Item Value Reference Range Interpretation Comme nts WBC (test code = 1001) 5.6 K/UL RBC (test code = 1002) 4.59 M/UL HEMOGLOBIN (test code = 1003) 13.8 G/DL HEMATOCRIT (test code = 1004) 41.5 % MCV (test code = 1005) 90.4 fL MCH (test code = 1006) 30.1 PG MCHC (test code = 1007) 33.3 G/DL RDW (test code = 1038) 13.0 % NEUTROPHILS (test code = 1008) 66.6 % LYMPHOCYTES (test code = 1010) 21.6 % MONOCYTES (test code = 1011) 8.4 % EOSINOPHILS (test code = 1012) 1.3 % BASOPHILS (test code = 1013) 0.5 % IMMATURE GRANULOCYTES (test code = 1036) 1.6 % NUCLEATED RBCS (test code = 1065) 0.0 /100WBC'S PLATELET COUNT (test code = 1015) 126 K/UL ABSOLUTE NEUTROPHILS (test c ode = 1066) 3.73 K/UL ABSOLUTE LYMPHOCYTES (test c ode = 1067) 1.21 K/UL ABSOLUTE MONOCYTES (test cod e = 1068) 0.47 K/UL ABSOLUTE EOSINOPHILS (test c ode = 1040) 0.07 K/UL ABSOLUTE BASOPHILS (test cod e = 1069) 0.03 K/UL ABS IMMATURE GRANULOCYTES (t est code = 1020) 0.09 K/UL ABS NUCLEATED RBCS (test cod e = 43543) 0.00 K/UL Gunnar LoyaLIPID [id number] 00:00:00* Test Item Value Reference Range Interpretation Comme nts CHOLESTEROL (test code = 2210) 153 MG/DL TRIGLYCERIDES (test code = 2232) 139 MG/DL HDL CHOLESTEROL (test code = 2220) 40 MG/DL CALC LDL CHOL (test code = 2237) 89 MG/DL RISK RATIO LDL/HDL (test cod e = 2238) 2.23 RATIO Gunnar LoyaHEMOGLOBIN [id number] 00:00:00* Test Item Value Reference Range Interpretation Comme nts HEMOGLOBIN A1c (test code = 77975) 9.8 % Gunnar LoyaCOMPREHENSIVE METABOLIC [id number] 00:00:00* Test Item Value Reference Range Interpretation Comme nts GLUCOSE (test code = 2217) 231 MG/DL BUN (test code = 2208) 20 MG/DL CREATININE (test code = 2214) 0.97 MG/DL eGFR (2020 CKD-EPI) (test co de = 23559) 86 ML/MIN/1.73 CALC BUN/CREAT (test code = 2235) 21 RATIO SODIUM (test code = 2231) 140 MEQ/L POTASSIUM (test code = 2228) 4.6 MEQ/L CHLORIDE (test code = 2215) 103 MEQ/L CARBON DIOXIDE (test code = 2206) 20 MEQ/L CALCIUM (test code = 2209) 9.6 MG/DL PROTEIN, TOTAL (test code = 2229) 6.8 G/DL ALBUMIN (test code = 2201) 4.4 G/DL CALC GLOBULIN (test code = 2240) 2.4 G/DL CALC A/G RATIO (test code = 2234) 1.8 RATIO BILIRUBIN, TOTAL (test code = 2207) 0.5 MG/DL ALKALINE PHOSPHATASE (test code = 2204) 108 U/L AST (test code = 2218) 15 U/L ALT (test code = 2219) 24 U/L Gunnar LoyaURINALYSIS W/REFLEX [id number] 00:00:00* Test Item Value Reference Range Interpretation Comme nts COLOR (test code = 1501) YELLOW APPEARANCE (test code = 1502) CLEAR SPECIFIC GRAVITY (test code = 1503) 1.033 LEUKOCYTE ESTERASE (test cod e = 1504) NEGATIVE NITRITE (test code = 1505) NEGATIVE pH (test code = 1506) 6.5 PROTEIN (test code = 1507) NEGATIVE GLUCOSE (test code = 1508) 3+ KETONES (test code = 1509) TRACE UROBILINOGEN (test code = 1510) 0.2 MG/DL BILIRUBIN (test code = 1511) NEGATIVE OCCULT BLOOD (test code = 1512) NEGATIVE Gunnar Coley VincenzoHEPATITIS C [id number] 00:00:00* Test Item Value Reference Range Interpretation Comme nts HEPATITIS C ANTIBODY (test c ode = 4675) NON-REACTIVE Gunnar Brijesh [id number] 00:00:00* Test Item Value Reference Range Interpretation Comme nts RPR RESULT (test code = 3501) NON-REACTIVE RPR TITER (test code = 3500) NOT INDIC. TITER Gunnar F AustinALBUMIN/CREATININE RATIO, RANDOM [id number] 00:00:00* Test Item Value Reference Range Interpretation Comme nts CREATININE, URINE, CONC. (te st code = 2072) 115.4 MG/DL ALBUMIN, URINE, RANDOM (test code = 66016) 1.2 MG/DL CALC ALBUMIN/CREAT, RND (genevieve t code = 66408) 10 MG/G Gunnar LoyaHERPES SIMPLEX 1/2 ANTIBODY, [id number] 00:00:00* Test Item Value Reference Range Interpretation Comme nts HERPES SIMPLEX 1 AB, IgG (te st code = 37781) 296.000 INDEX HERPES SIMPLEX 2 AB, IgG (te st code = 99996) 0.075 INDEX Gunnar LoyaHIV 1/2 4TH GEN, RFLX [id number] 00:00:00* Test Item Value Reference Range Interpretation Comme nts HIV 1/2 4TH GEN, RFLX CONF ( test code = 3514) NON-REACTIVE Gunnar LoyaCBC W/AUTO [id number] 00:00:00* Test Item Value Reference Range Interpretation Comme nts WBC (test code = 1001) 5.6 K/UL RBC (test code = 1002) 4.59 M/UL HEMOGLOBIN (test code = 1003) 13.8 G/DL HEMATOCRIT (test code = 1004) 41.5 % MCV (test code = 1005) 90.4 fL MCH (test code = 1006) 30.1 PG MCHC (test code = 1007) 33.3 G/DL RDW (test code = 1038) 13.0 % NEUTROPHILS (test code = 1008) 66.6 % LYMPHOCYTES (test code = 1010) 21.6 % MONOCYTES (test code = 1011) 8.4 % EOSINOPHILS (test code = 1012) 1.3 % BASOPHILS (test code = 1013) 0.5 % IMMATURE GRANULOCYTES (test code = 1036) 1.6 % NUCLEATED RBCS (test code = 1065) 0.0 /100WBC'S PLATELET COUNT (test code = 1015) 126 K/UL ABSOLUTE NEUTROPHILS (test c ode = 1066) 3.73 K/UL ABSOLUTE LYMPHOCYTES (test c ode = 1067) 1.21 K/UL ABSOLUTE MONOCYTES (test cod e = 1068) 0.47 K/UL ABSOLUTE EOSINOPHILS (test c ode = 1040) 0.07 K/UL ABSOLUTE BASOPHILS (test cod e = 1069) 0.03 K/UL ABS IMMATURE GRANULOCYTES (t est code = 1020) 0.09 K/UL ABS NUCLEATED RBCS (test cod e = 61242) 0.00 K/UL Gunnar LoyaLIPID [id number] 00:00:00* Test Item Value Reference Range Interpretation Comme nts CHOLESTEROL (test code = 2210) 153 MG/DL TRIGLYCERIDES (test code = 2232) 139 MG/DL HDL CHOLESTEROL (test code = 2220) 40 MG/DL CALC LDL CHOL (test code = 2237) 89 MG/DL RISK RATIO LDL/HDL (test cod e = 2238) 2.23 RATIO Gunnar LoyaHEMOGLOBIN [id number] 00:00:00* Test Item Value Reference Range Interpretation Comme nts HEMOGLOBIN A1c (test code = 71029) 9.8 % Gunnar LoyaCOMPREHENSIVE METABOLIC [id number] 00:00:00* Test Item Value Reference Range Interpretation Comme nts GLUCOSE (test code = 2217) 231 MG/DL BUN (test code = 2208) 20 MG/DL CREATININE (test code = 2214) 0.97 MG/DL eGFR (2020 CKD-EPI) (test co de = 01542) 86 ML/MIN/1.73 CALC BUN/CREAT (test code = 2235) 21 RATIO SODIUM (test code = 2231) 140 MEQ/L POTASSIUM (test code = 2228) 4.6 MEQ/L CHLORIDE (test code = 2215) 103 MEQ/L CARBON DIOXIDE (test code = 2206) 20 MEQ/L CALCIUM (test code = 2209) 9.6 MG/DL PROTEIN, TOTAL (test code = 2229) 6.8 G/DL ALBUMIN (test code = 2201) 4.4 G/DL CALC GLOBULIN (test code = 2240) 2.4 G/DL CALC A/G RATIO (test code = 2234) 1.8 RATIO BILIRUBIN, TOTAL (test code = 2207) 0.5 MG/DL ALKALINE PHOSPHATASE (test code = 2204) 108 U/L AST (test code = 2218) 15 U/L ALT (test code = 2219) 24 U/L Gunnar Coley AustinURINALYSIS W/REFLEX [id number] 00:00:00* Test Item Value Reference Range Interpretation Comme nts COLOR (test code = 1501) YELLOW APPEARANCE (test code = 1502) CLEAR SPECIFIC GRAVITY (test code = 1503) 1.033 LEUKOCYTE ESTERASE (test cod e = 1504) NEGATIVE NITRITE (test code = 1505) NEGATIVE pH (test code = 1506) 6.5 PROTEIN (test code = 1507) NEGATIVE GLUCOSE (test code = 1508) 3+ KETONES (test code = 1509) TRACE UROBILINOGEN (test code = 1510) 0.2 MG/DL BILIRUBIN (test code = 1511) NEGATIVE OCCULT BLOOD (test code = 1512) NEGATIVE Gunnar LoyaHEPATITIS C [id number] 00:00:00* Test Item Value Reference Range Interpretation Comme nts HEPATITIS C ANTIBODY (test c ode = 4675) NON-REACTIVE Gunnar Coley [id number] 00:00:00* Test Item Value Reference Range Interpretation Comme nts RPR RESULT (test code = 3501) NON-REACTIVE RPR TITER (test code = 3500) NOT INDIC. TITER Gunnar LoyaALBUMIN/CREATININE RATIO, RANDOM [id number] 00:00:00* Test Item Value Reference Range Interpretation Comme pierce CREATININE, URINE, CONC. (te st code = 2072) 115.4 MG/DL ALBUMIN, URINE, RANDOM (test code = 85945) 1.2 MG/DL CALC ALBUMIN/CREAT, RND (genevieve t code = 24258) 10 MG/G Gunnar LoyaHERPES SIMPLEX 1/2 ANTIBODY, [id number] 00:00:00* Test Item Value Reference Range Interpretation Comme nts HERPES SIMPLEX 1 AB, IgG (te st code = 65183) 296.000 INDEX HERPES SIMPLEX 2 AB, IgG (te st code = 58504) 0.075 INDEX Gunnar LoyaHIV 1/2 4TH GEN, RFLX [id number] 00:00:00* Test Item Value Reference Range Interpretation Comme nts HIV 1/2 4TH GEN, RFLX CONF ( test code = 3514) NON-REACTIVE Gunnar LoyaCBC W/AUTO [id number] 00:00:00* Test Item Value Reference Range Interpretation Comme nts WBC (test code = 1001) 5.2 K/UL RBC (test code = 1002) 5.02 M/UL HEMOGLOBIN (test code = 1003) 14.9 G/DL HEMATOCRIT (test code = 1004) 45.8 % MCV (test code = 1005) 91.2 fL MCH (test code = 1006) 29.7 PG MCHC (test code = 1007) 32.5 G/DL RDW (test code = 1038) 13.1 % NEUTROPHILS (test code = 1008) 68.8 % LYMPHOCYTES (test code = 1010) 20.7 % MONOCYTES (test code = 1011) 7.8 % EOSINOPHILS (test code = 1012) 1.7 % BASOPHILS (test code = 1013) 0.4 % IMMATURE GRANULOCYTES (test code = 1036) 0.6 % NUCLEATED RBCS (test code = 1065) 0.0 /100WBC'S PLATELET COUNT (test code = 1015) 158 K/UL ABSOLUTE NEUTROPHILS (test c ode = 1066) 3.55 K/UL ABSOLUTE LYMPHOCYTES (test c ode = 1067) 1.07 K/UL ABSOLUTE MONOCYTES (test cod e = 1068) 0.40 K/UL ABSOLUTE EOSINOPHILS (test c ode = 1040) 0.09 K/UL ABSOLUTE BASOPHILS (test cod e = 1069) 0.02 K/UL ABS IMMATURE GRANULOCYTES (t est code = 1020) 0.03 K/UL ABS NUCLEATED RBCS (test cod e = 80516) 0.00 K/UL Gunnar LoyaLIPID [id number] 00:00:00* Test Item Value Reference Range Interpretation Comme nts CHOLESTEROL (test code = 2210) 141 MG/DL TRIGLYCERIDES (test code = 2232) 101 MG/DL HDL CHOLESTEROL (test code = 2220) 40 MG/DL CALC LDL CHOL (test code = 2237) 82 MG/DL RISK RATIO LDL/HDL (test cod e = 2238) 2.05 RATIO Gunnar LoyaHEMOGLOBIN [id number] 00:00:00* Test Item Value Reference Range Interpretation Comme nts HEMOGLOBIN A1c (test code = 69145) 8.8 % Gunnar LoyaCOMPREHENSIVE METABOLIC [id number] 00:00:00* Test Item Value Reference Range Interpretation Comme nts GLUCOSE (test code = 2217) 119 MG/DL BUN (test code = 2208) 18 MG/DL CREATININE (test code = 2214) 0.96 MG/DL eGFR (2020 CKD-EPI) (test co de = 95197) 87 ML/MIN/1.73 CALC BUN/CREAT (test code = 2235) 19 RATIO SODIUM (test code = 2231) 145 MEQ/L POTASSIUM (test code = 2228) 4.3 MEQ/L CHLORIDE (test code = 2215) 106 MEQ/L CARBON DIOXIDE (test code = 2206) 24 MEQ/L CALCIUM (test code = 2209) 9.2 MG/DL PROTEIN, TOTAL (test code = 2229) 6.9 G/DL ALBUMIN (test code = 2201) 4.7 G/DL CALC GLOBULIN (test code = 2240) 2.2 G/DL CALC A/G RATIO (test code = 2234) 2.1 RATIO BILIRUBIN, TOTAL (test code = 2207) 0.7 MG/DL ALKALINE PHOSPHATASE (test code = 2204) 100 U/L AST (test code = 2218) 30 U/L ALT (test code = 2219) 44 U/L Gunnar LoyaHEPATITIS C [id number] 00:00:00* Test Item Value Reference Range Interpretation Comme nts HEPATITIS C ANTIBODY (test c ode = 4675) NON-REACTIVE Gunnar LoyaPSA, [id number] 00:00:00* Test Item Value Reference Range Interpretation Comme nts PSA, TOTAL (test code = 2606) 0.59 NG/ML Gunnar LoyaURINALYSIS W/REFLEX [id number] 00:00:00* Test Item Value Reference Range Interpretation Comme nts COLOR (test code = 1501) DARK YELLOW APPEARANCE (test code = 1502) TURBID SPECIFIC GRAVITY (test code = 1503) 1.025 LEUKOCYTE ESTERASE (test cod e = 1504) NEGATIVE NITRITE (test code = 1505) NEGATIVE pH (test code = 1506) 5.5 PROTEIN (test code = 1507) NEGATIVE GLUCOSE (test code = 1508) NEGATIVE KETONES (test code = 1509) NEGATIVE UROBILINOGEN (test code = 1510) 0.2 MG/DL BILIRUBIN (test code = 1511) NEGATIVE OCCULT BLOOD (test code = 1512) NEGATIVE WHITE BLOOD CELLS (test code = 1513) 0-5 /HPF RED BLOOD CELLS (test code = 1514) 0-2 /HPF EPITHELIAL CELLS (test code = 30448) 0-5 /HPF BACTERIA (test code = 1515) NONE SEEN CASTS, HYALINE (test code = 1517) NONE SEEN Gunnar LoyaALBUMIN/CREATININE RATIO, RANDOM [id number] 00:00:00* Test Item Value Reference Range Interpretation Comme nts CREATININE, URINE, CONC. (te st code = 2072) 238.8 MG/DL ALBUMIN, URINE, RANDOM (test code = 68083) 1.1 MG/DL CALC ALBUMIN/CREAT, RND (genevieve t code = 44820) 5 MG/G Gunnar LoyaCBC W/AUTO [id number] 00:00:00* Test Item Value Reference Range Interpretation Comme nts WBC (test code = 1001) 5.2 K/UL RBC (test code = 1002) 5.02 M/UL HEMOGLOBIN (test code = 1003) 14.9 G/DL HEMATOCRIT (test code = 1004) 45.8 % MCV (test code = 1005) 91.2 fL MCH (test code = 1006) 29.7 PG MCHC (test code = 1007) 32.5 G/DL RDW (test code = 1038) 13.1 % NEUTROPHILS (test code = 1008) 68.8 % LYMPHOCYTES (test code = 1010) 20.7 % MONOCYTES (test code = 1011) 7.8 % EOSINOPHILS (test code = 1012) 1.7 % BASOPHILS (test code = 1013) 0.4 % IMMATURE GRANULOCYTES (test code = 1036) 0.6 % NUCLEATED RBCS (test code = 1065) 0.0 /100WBC'S PLATELET COUNT (test code = 1015) 158 K/UL ABSOLUTE NEUTROPHILS (test c ode = 1066) 3.55 K/UL ABSOLUTE LYMPHOCYTES (test c ode = 1067) 1.07 K/UL ABSOLUTE MONOCYTES (test cod e = 1068) 0.40 K/UL ABSOLUTE EOSINOPHILS (test c ode = 1040) 0.09 K/UL ABSOLUTE BASOPHILS (test cod e = 1069) 0.02 K/UL ABS IMMATURE GRANULOCYTES (t est code = 1020) 0.03 K/UL ABS NUCLEATED RBCS (test cod e = 68503) 0.00 K/UL Gunnar LoyaLIPID [id number] 00:00:00* Test Item Value Reference Range Interpretation Comme nts CHOLESTEROL (test code = 2210) 141 MG/DL TRIGLYCERIDES (test code = 2232) 101 MG/DL HDL CHOLESTEROL (test code = 2220) 40 MG/DL CALC LDL CHOL (test code = 2237) 82 MG/DL RISK RATIO LDL/HDL (test cod e = 2238) 2.05 RATIO Gunnar LoyaHEMOGLOBIN [id number] 00:00:00* Test Item Value Reference Range Interpretation Comme pierce HEMOGLOBIN A1c (test code = 74847) 8.8 % Gunnar LoyaCOMPREHENSIVE METABOLIC [id number] 00:00:00* Test Item Value Reference Range Interpretation Comme nts GLUCOSE (test code = 2217) 119 MG/DL BUN (test code = 2208) 18 MG/DL CREATININE (test code = 2214) 0.96 MG/DL eGFR (2020 CKD-EPI) (test co de = 17937) 87 ML/MIN/1.73 CALC BUN/CREAT (test code = 2235) 19 RATIO SODIUM (test code = 2231) 145 MEQ/L POTASSIUM (test code = 2228) 4.3 MEQ/L CHLORIDE (test code = 2215) 106 MEQ/L CARBON DIOXIDE (test code = 2206) 24 MEQ/L CALCIUM (test code = 2209) 9.2 MG/DL PROTEIN, TOTAL (test code = 2229) 6.9 G/DL ALBUMIN (test code = 2201) 4.7 G/DL CALC GLOBULIN (test code = 2240) 2.2 G/DL CALC A/G RATIO (test code = 2234) 2.1 RATIO BILIRUBIN, TOTAL (test code = 2207) 0.7 MG/DL ALKALINE PHOSPHATASE (test code = 2204) 100 U/L AST (test code = 2218) 30 U/L ALT (test code = 2219) 44 U/L Gunnar LoyaHEPATITIS C [id number] 00:00:00* Test Item Value Reference Range Interpretation Comme pierce HEPATITIS C ANTIBODY (test c ode = 4675) NON-REACTIVE Gunnar LoyaPSA, [id number] 00:00:00* Test Item Value Reference Range Interpretation Comme nts PSA, TOTAL (test code = 2606) 0.59 NG/ML Gunnar LoyaURINALYSIS W/REFLEX [id number] 00:00:00* Test Item Value Reference Range Interpretation Comme nts COLOR (test code = 1501) DARK YELLOW APPEARANCE (test code = 1502) TURBID SPECIFIC GRAVITY (test code = 1503) 1.025 LEUKOCYTE ESTERASE (test cod e = 1504) NEGATIVE NITRITE (test code = 1505) NEGATIVE pH (test code = 1506) 5.5 PROTEIN (test code = 1507) NEGATIVE GLUCOSE (test code = 1508) NEGATIVE KETONES (test code = 1509) NEGATIVE UROBILINOGEN (test code = 1510) 0.2 MG/DL BILIRUBIN (test code = 1511) NEGATIVE OCCULT BLOOD (test code = 1512) NEGATIVE WHITE BLOOD CELLS (test code = 1513) 0-5 /HPF RED BLOOD CELLS (test code = 1514) 0-2 /HPF EPITHELIAL CELLS (test code = 12285) 0-5 /HPF BACTERIA (test code = 1515) NONE SEEN CASTS, HYALINE (test code = 1517) NONE SEEN Gunnar LoyaALBUMIN/CREATININE RATIO, RANDOM [id number] 00:00:00* Test Item Value Reference Range Interpretation Comme nts CREATININE, URINE, CONC. (te st code = 2072) 238.8 MG/DL ALBUMIN, URINE, RANDOM (test code = 42348) 1.1 MG/DL CALC ALBUMIN/CREAT, RND (genevieve t code = 83157) 5 MG/G Gunnar LoyaCBC W/AUTO [id number] 00:00:00* Test Item Value Reference Range Interpretation Comme nts WBC (test code = 1001) 5.2 K/UL RBC (test code = 1002) 5.02 M/UL HEMOGLOBIN (test code = 1003) 14.9 G/DL HEMATOCRIT (test code = 1004) 45.8 % MCV (test code = 1005) 91.2 fL MCH (test code = 1006) 29.7 PG MCHC (test code = 1007) 32.5 G/DL RDW (test code = 1038) 13.1 % NEUTROPHILS (test code = 1008) 68.8 % LYMPHOCYTES (test code = 1010) 20.7 % MONOCYTES (test code = 1011) 7.8 % EOSINOPHILS (test code = 1012) 1.7 % BASOPHILS (test code = 1013) 0.4 % IMMATURE GRANULOCYTES (test code = 1036) 0.6 % NUCLEATED RBCS (test code = 1065) 0.0 /100WBC'S PLATELET COUNT (test code = 1015) 158 K/UL ABSOLUTE NEUTROPHILS (test c ode = 1066) 3.55 K/UL ABSOLUTE LYMPHOCYTES (test c ode = 1067) 1.07 K/UL ABSOLUTE MONOCYTES (test cod e = 1068) 0.40 K/UL ABSOLUTE EOSINOPHILS (test c ode = 1040) 0.09 K/UL ABSOLUTE BASOPHILS (test cod e = 1069) 0.02 K/UL ABS IMMATURE GRANULOCYTES (t est code = 1020) 0.03 K/UL ABS NUCLEATED RBCS (test cod e = 37231) 0.00 K/UL Gunnar LoyaLIPID [id number] 00:00:00* Test Item Value Reference Range Interpretation Comme nts CHOLESTEROL (test code = 2210) 141 MG/DL TRIGLYCERIDES (test code = 2232) 101 MG/DL HDL CHOLESTEROL (test code = 2220) 40 MG/DL CALC LDL CHOL (test code = 2237) 82 MG/DL RISK RATIO LDL/HDL (test cod e = 2238) 2.05 RATIO Gunnar LoyaHEMOGLOBIN [id number] 00:00:00* Test Item Value Reference Range Interpretation Comme nts HEMOGLOBIN A1c (test code = 31411) 8.8 % Gunnar LoyaCOMPREHENSIVE METABOLIC [id number] 00:00:00* Test Item Value Reference Range Interpretation Comme nts GLUCOSE (test code = 2217) 119 MG/DL BUN (test code = 2208) 18 MG/DL CREATININE (test code = 2214) 0.96 MG/DL eGFR (2020 CKD-EPI) (test co de = 70479) 87 ML/MIN/1.73 CALC BUN/CREAT (test code = 2235) 19 RATIO SODIUM (test code = 2231) 145 MEQ/L POTASSIUM (test code = 2228) 4.3 MEQ/L CHLORIDE (test code = 2215) 106 MEQ/L CARBON DIOXIDE (test code = 2206) 24 MEQ/L CALCIUM (test code = 2209) 9.2 MG/DL PROTEIN, TOTAL (test code = 2229) 6.9 G/DL ALBUMIN (test code = 2201) 4.7 G/DL CALC GLOBULIN (test code = 2240) 2.2 G/DL CALC A/G RATIO (test code = 2234) 2.1 RATIO BILIRUBIN, TOTAL (test code = 2207) 0.7 MG/DL ALKALINE PHOSPHATASE (test code = 2204) 100 U/L AST (test code = 2218) 30 U/L ALT (test code = 2219) 44 U/L Gunnar LoyaHEPATITIS C [id number] 00:00:00* Test Item Value Reference Range Interpretation Comme nts HEPATITIS C ANTIBODY (test c ode = 4675) NON-REACTIVE Gunnar LoyaPSA, [id number] 00:00:00* Test Item Value Reference Range Interpretation Comme nts PSA, TOTAL (test code = 2606) 0.59 NG/ML Gunnar LoyaURINALYSIS W/REFLEX [id number] 00:00:00* Test Item Value Reference Range Interpretation Comme nts COLOR (test code = 1501) DARK YELLOW APPEARANCE (test code = 1502) TURBID SPECIFIC GRAVITY (test code = 1503) 1.025 LEUKOCYTE ESTERASE (test cod e = 1504) NEGATIVE NITRITE (test code = 1505) NEGATIVE pH (test code = 1506) 5.5 PROTEIN (test code = 1507) NEGATIVE GLUCOSE (test code = 1508) NEGATIVE KETONES (test code = 1509) NEGATIVE UROBILINOGEN (test code = 1510) 0.2 MG/DL BILIRUBIN (test code = 1511) NEGATIVE OCCULT BLOOD (test code = 1512) NEGATIVE WHITE BLOOD CELLS (test code = 1513) 0-5 /HPF RED BLOOD CELLS (test code = 1514) 0-2 /HPF EPITHELIAL CELLS (test code = 28049) 0-5 /HPF BACTERIA (test code = 1515) NONE SEEN CASTS, HYALINE (test code = 1517) NONE SEEN Gunnar LoyaALBUMIN/CREATININE RATIO, RANDOM [id number] 00:00:00* Test Item Value Reference Range Interpretation Comme pierce CREATININE, URINE, CONC. (te st code = 207) 238.8 MG/DL ALBUMIN, URINE, RANDOM (test code = 22488) 1.1 MG/DL CALC ALBUMIN/CREAT, RND (genevieve t code = 37356) 5 MG/G Gunnar LoyaCBC W/AUTO [id number] 00:00:00* Test Item Value Reference Range Interpretation Comme nts WBC (test code = 1001) 5.2 K/UL RBC (test code = 1002) 5.02 M/UL HEMOGLOBIN (test code = 1003) 14.9 G/DL HEMATOCRIT (test code = 1004) 45.8 % MCV (test code = 1005) 91.2 fL MCH (test code = 1006) 29.7 PG MCHC (test code = 1007) 32.5 G/DL RDW (test code = 1038) 13.1 % NEUTROPHILS (test code = 1008) 68.8 % LYMPHOCYTES (test code = 1010) 20.7 % MONOCYTES (test code = 1011) 7.8 % EOSINOPHILS (test code = 1012) 1.7 % BASOPHILS (test code = 1013) 0.4 % IMMATURE GRANULOCYTES (test code = 1036) 0.6 % NUCLEATED RBCS (test code = 1065) 0.0 /100WBC'S PLATELET COUNT (test code = 1015) 158 K/UL ABSOLUTE NEUTROPHILS (test c ode = 1066) 3.55 K/UL ABSOLUTE LYMPHOCYTES (test c ode = 1067) 1.07 K/UL ABSOLUTE MONOCYTES (test cod e = 1068) 0.40 K/UL ABSOLUTE EOSINOPHILS (test c ode = 1040) 0.09 K/UL ABSOLUTE BASOPHILS (test cod e = 1069) 0.02 K/UL ABS IMMATURE GRANULOCYTES (t est code = 1020) 0.03 K/UL ABS NUCLEATED RBCS (test cod e = 20275) 0.00 K/UL Gunnar LoyaLIPID [id number] 00:00:00* Test Item Value Reference Range Interpretation Comme nts CHOLESTEROL (test code = 2210) 141 MG/DL TRIGLYCERIDES (test code = 2232) 101 MG/DL HDL CHOLESTEROL (test code = 2220) 40 MG/DL CALC LDL CHOL (test code = 2237) 82 MG/DL RISK RATIO LDL/HDL (test cod e = 2238) 2.05 RATIO Gunnar LoyaHEMOGLOBIN [id number] 00:00:00* Test Item Value Reference Range Interpretation Comme nts HEMOGLOBIN A1c (test code = 65048) 8.8 % Gunnar LoyaCOMPREHENSIVE METABOLIC [id number] 00:00:00* Test Item Value Reference Range Interpretation Comme nts GLUCOSE (test code = 2217) 119 MG/DL BUN (test code = 2208) 18 MG/DL CREATININE (test code = 2214) 0.96 MG/DL eGFR (2020 CKD-EPI) (test co de = 30173) 87 ML/MIN/1.73 CALC BUN/CREAT (test code = 2235) 19 RATIO SODIUM (test code = 2231) 145 MEQ/L POTASSIUM (test code = 2228) 4.3 MEQ/L CHLORIDE (test code = 2215) 106 MEQ/L CARBON DIOXIDE (test code = 2206) 24 MEQ/L CALCIUM (test code = 2209) 9.2 MG/DL PROTEIN, TOTAL (test code = 2229) 6.9 G/DL ALBUMIN (test code = 2201) 4.7 G/DL CALC GLOBULIN (test code = 2240) 2.2 G/DL CALC A/G RATIO (test code = 2234) 2.1 RATIO BILIRUBIN, TOTAL (test code = 2207) 0.7 MG/DL ALKALINE PHOSPHATASE (test code = 2204) 100 U/L AST (test code = 2218) 30 U/L ALT (test code = 2219) 44 U/L Gunnar LoyaHEPATITIS C [id number] 00:00:00* Test Item Value Reference Range Interpretation Comme nts HEPATITIS C ANTIBODY (test c ode = 4675) NON-REACTIVE Gunnar LoyaPSA, [id number] 00:00:00* Test Item Value Reference Range Interpretation Comme nts PSA, TOTAL (test code = 2606) 0.59 NG/ML Gunnar LoyaURINALYSIS W/REFLEX [id number] 00:00:00* Test Item Value Reference Range Interpretation Comme nts COLOR (test code = 1501) DARK YELLOW APPEARANCE (test code = 1502) TURBID SPECIFIC GRAVITY (test code = 1503) 1.025 LEUKOCYTE ESTERASE (test cod e = 1504) NEGATIVE NITRITE (test code = 1505) NEGATIVE pH (test code = 1506) 5.5 PROTEIN (test code = 1507) NEGATIVE GLUCOSE (test code = 1508) NEGATIVE KETONES (test code = 1509) NEGATIVE UROBILINOGEN (test code = 1510) 0.2 MG/DL BILIRUBIN (test code = 1511) NEGATIVE OCCULT BLOOD (test code = 1512) NEGATIVE WHITE BLOOD CELLS (test code = 1513) 0-5 /HPF RED BLOOD CELLS (test code = 1514) 0-2 /HPF EPITHELIAL CELLS (test code = 91282) 0-5 /HPF BACTERIA (test code = 1515) NONE SEEN CASTS, HYALINE (test code = 1517) NONE SEEN Gunnar LoyaALBUMIN/CREATININE RATIO, RANDOM [id number] 00:00:00* Test Item Value Reference Range Interpretation Comme nts CREATININE, URINE, CONC. (te st code = 2072) 238.8 MG/DL ALBUMIN, URINE, RANDOM (test code = 39603) 1.1 MG/DL CALC ALBUMIN/CREAT, RND (genevieve t code = 63461) 5 MG/G Gunnar LoyaCBC W/AUTO [id number] 00:00:00* Test Item Value Reference Range Interpretation Comme nts WBC (test code = 1001) 5.2 K/UL RBC (test code = 1002) 5.02 M/UL HEMOGLOBIN (test code = 1003) 14.9 G/DL HEMATOCRIT (test code = 1004) 45.8 % MCV (test code = 1005) 91.2 fL MCH (test code = 1006) 29.7 PG MCHC (test code = 1007) 32.5 G/DL RDW (test code = 1038) 13.1 % NEUTROPHILS (test code = 1008) 68.8 % LYMPHOCYTES (test code = 1010) 20.7 % MONOCYTES (test code = 1011) 7.8 % EOSINOPHILS (test code = 1012) 1.7 % BASOPHILS (test code = 1013) 0.4 % IMMATURE GRANULOCYTES (test code = 1036) 0.6 % NUCLEATED RBCS (test code = 1065) 0.0 /100WBC'S PLATELET COUNT (test code = 1015) 158 K/UL ABSOLUTE NEUTROPHILS (test c ode = 1066) 3.55 K/UL ABSOLUTE LYMPHOCYTES (test c ode = 1067) 1.07 K/UL ABSOLUTE MONOCYTES (test cod e = 1068) 0.40 K/UL ABSOLUTE EOSINOPHILS (test c ode = 1040) 0.09 K/UL ABSOLUTE BASOPHILS (test cod e = 1069) 0.02 K/UL ABS IMMATURE GRANULOCYTES (t est code = 1020) 0.03 K/UL ABS NUCLEATED RBCS (test cod e = 08367) 0.00 K/UL Gunnar LoyaLIPID [id number] 00:00:00* Test Item Value Reference Range Interpretation Comme nts CHOLESTEROL (test code = 2210) 141 MG/DL TRIGLYCERIDES (test code = 2232) 101 MG/DL HDL CHOLESTEROL (test code = 2220) 40 MG/DL CALC LDL CHOL (test code = 2237) 82 MG/DL RISK RATIO LDL/HDL (test cod e = 2238) 2.05 RATIO Gunnar LoyaHEMOGLOBIN [id number] 00:00:00* Test Item Value Reference Range Interpretation Comme nts HEMOGLOBIN A1c (test code = 36015) 8.8 % Gunnar LoyaCOMPREHENSIVE METABOLIC [id number] 00:00:00* Test Item Value Reference Range Interpretation Comme nts GLUCOSE (test code = 2217) 119 MG/DL BUN (test code = 2208) 18 MG/DL CREATININE (test code = 2214) 0.96 MG/DL eGFR (2020 CKD-EPI) (test co de = 20545) 87 ML/MIN/1.73 CALC BUN/CREAT (test code = 2235) 19 RATIO SODIUM (test code = 2231) 145 MEQ/L POTASSIUM (test code = 2228) 4.3 MEQ/L CHLORIDE (test code = 2215) 106 MEQ/L CARBON DIOXIDE (test code = 2206) 24 MEQ/L CALCIUM (test code = 2209) 9.2 MG/DL PROTEIN, TOTAL (test code = 2229) 6.9 G/DL ALBUMIN (test code = 2201) 4.7 G/DL CALC GLOBULIN (test code = 2240) 2.2 G/DL CALC A/G RATIO (test code = 2234) 2.1 RATIO BILIRUBIN, TOTAL (test code = 2207) 0.7 MG/DL ALKALINE PHOSPHATASE (test code = 2204) 100 U/L AST (test code = 2218) 30 U/L ALT (test code = 2219) 44 U/L Gunnar LoyaHEPATITIS C [id number] 00:00:00* Test Item Value Reference Range Interpretation Comme pierce HEPATITIS C ANTIBODY (test c ode = 4607) NON-REACTIVE Gunnar LoyaPSA, [id number] 00:00:00* Test Item Value Reference Range Interpretation Comme pierce PSA, TOTAL (test code = 2606) 0.59 NG/ML Gunnar LoyaURINALYSIS W/REFLEX [id number] 00:00:00* Test Item Value Reference Range Interpretation Comme nts COLOR (test code = 1501) DARK YELLOW APPEARANCE (test code = 1502) TURBID SPECIFIC GRAVITY (test code = 1503) 1.025 LEUKOCYTE ESTERASE (test cod e = 1504) NEGATIVE NITRITE (test code = 1505) NEGATIVE pH (test code = 1506) 5.5 PROTEIN (test code = 1507) NEGATIVE GLUCOSE (test code = 1508) NEGATIVE KETONES (test code = 1509) NEGATIVE UROBILINOGEN (test code = 1510) 0.2 MG/DL BILIRUBIN (test code = 1511) NEGATIVE OCCULT BLOOD (test code = 1512) NEGATIVE WHITE BLOOD CELLS (test code = 1513) 0-5 /HPF RED BLOOD CELLS (test code = 1514) 0-2 /HPF EPITHELIAL CELLS (test code = 11273) 0-5 /HPF BACTERIA (test code = 1515) NONE SEEN CASTS, HYALINE (test code = 1517) NONE SEEN Gunnar LoyaALBUMIN/CREATININE RATIO, RANDOM [id number] 00:00:00* Test Item Value Reference Range Interpretation Comme pierce CREATININE, URINE, CONC. (te st code = 2072) 238.8 MG/DL ALBUMIN, URINE, RANDOM (test code = 78068) 1.1 MG/DL CALC ALBUMIN/CREAT, RND (genevieve t code = 50403) 5 MG/G Gunnar LoyaCBC W/AUTO [id number] 00:00:00* Test Item Value Reference Range Interpretation Comme nts WBC (test code = 1001) 5.2 K/UL RBC (test code = 1002) 5.02 M/UL HEMOGLOBIN (test code = 1003) 14.9 G/DL HEMATOCRIT (test code = 1004) 45.8 % MCV (test code = 1005) 91.2 fL MCH (test code = 1006) 29.7 PG MCHC (test code = 1007) 32.5 G/DL RDW (test code = 1038) 13.1 % NEUTROPHILS (test code = 1008) 68.8 % LYMPHOCYTES (test code = 1010) 20.7 % MONOCYTES (test code = 1011) 7.8 % EOSINOPHILS (test code = 1012) 1.7 % BASOPHILS (test code = 1013) 0.4 % IMMATURE GRANULOCYTES (test code = 1036) 0.6 % NUCLEATED RBCS (test code = 1065) 0.0 /100WBC'S PLATELET COUNT (test code = 1015) 158 K/UL ABSOLUTE NEUTROPHILS (test c ode = 1066) 3.55 K/UL ABSOLUTE LYMPHOCYTES (test c ode = 1067) 1.07 K/UL ABSOLUTE MONOCYTES (test cod e = 1068) 0.40 K/UL ABSOLUTE EOSINOPHILS (test c ode = 1040) 0.09 K/UL ABSOLUTE BASOPHILS (test cod e = 1069) 0.02 K/UL ABS IMMATURE GRANULOCYTES (t est code = 1020) 0.03 K/UL ABS NUCLEATED RBCS (test cod e = 20742) 0.00 K/UL Gunnar LoyaLIPID [id number] 00:00:00* Test Item Value Reference Range Interpretation Comme nts CHOLESTEROL (test code = 2210) 141 MG/DL TRIGLYCERIDES (test code = 2232) 101 MG/DL HDL CHOLESTEROL (test code = 2220) 40 MG/DL CALC LDL CHOL (test code = 2237) 82 MG/DL RISK RATIO LDL/HDL (test cod e = 2238) 2.05 RATIO Gunnar LoyaHEMOGLOBIN [id number] 00:00:00* Test Item Value Reference Range Interpretation Comme nts HEMOGLOBIN A1c (test code = 51345) 8.8 % Gunnar LoyaCOMPREHENSIVE METABOLIC [id number] 00:00:00* Test Item Value Reference Range Interpretation Comme nts GLUCOSE (test code = 2217) 119 MG/DL BUN (test code = 2208) 18 MG/DL CREATININE (test code = 2214) 0.96 MG/DL eGFR (2020 CKD-EPI) (test co de = 81174) 87 ML/MIN/1.73 CALC BUN/CREAT (test code = 2235) 19 RATIO SODIUM (test code = 2231) 145 MEQ/L POTASSIUM (test code = 2228) 4.3 MEQ/L CHLORIDE (test code = 2215) 106 MEQ/L CARBON DIOXIDE (test code = 2206) 24 MEQ/L CALCIUM (test code = 2209) 9.2 MG/DL PROTEIN, TOTAL (test code = 2229) 6.9 G/DL ALBUMIN (test code = 2201) 4.7 G/DL CALC GLOBULIN (test code = 2240) 2.2 G/DL CALC A/G RATIO (test code = 2234) 2.1 RATIO BILIRUBIN, TOTAL (test code = 2207) 0.7 MG/DL ALKALINE PHOSPHATASE (test code = 2204) 100 U/L AST (test code = 2218) 30 U/L ALT (test code = 2219) 44 U/L Gunnar LoyaHEPATITIS C [id number] 00:00:00* Test Item Value Reference Range Interpretation Comme nts HEPATITIS C ANTIBODY (test c ode = 4675) NON-REACTIVE Gunnar LoyaPSA, [id number] 00:00:00* Test Item Value Reference Range Interpretation Comme nts PSA, TOTAL (test code = 2606) 0.59 NG/ML Gunnar LoyaURINALYSIS W/REFLEX [id number] 00:00:00* Test Item Value Reference Range Interpretation Comme nts COLOR (test code = 1501) DARK YELLOW APPEARANCE (test code = 1502) TURBID SPECIFIC GRAVITY (test code = 1503) 1.025 LEUKOCYTE ESTERASE (test cod e = 1504) NEGATIVE NITRITE (test code = 1505) NEGATIVE pH (test code = 1506) 5.5 PROTEIN (test code = 1507) NEGATIVE GLUCOSE (test code = 1508) NEGATIVE KETONES (test code = 1509) NEGATIVE UROBILINOGEN (test code = 1510) 0.2 MG/DL BILIRUBIN (test code = 1511) NEGATIVE OCCULT BLOOD (test code = 1512) NEGATIVE WHITE BLOOD CELLS (test code = 1513) 0-5 /HPF RED BLOOD CELLS (test code = 1514) 0-2 /HPF EPITHELIAL CELLS (test code = 64090) 0-5 /HPF BACTERIA (test code = 1515) NONE SEEN CASTS, HYALINE (test code = 1517) NONE SEEN Gunnar F AustinALBUMIN/CREATININE RATIO, RANDOM [id number] 00:00:00* Test Item Value Reference Range Interpretation Comme nts CREATININE, URINE, CONC. (te st code = 2072) 238.8 MG/DL ALBUMIN, URINE, RANDOM (test code = 81739) 1.1 MG/DL CALC ALBUMIN/CREAT, RND (genevieve t code = 12625) 5 MG/G Gunnar LoyaCBC W/AUTO [id number] 00:00:00* Test Item Value Reference Range Interpretation Comme nts WBC (test code = 1001) 5.2 K/UL RBC (test code = 1002) 5.02 M/UL HEMOGLOBIN (test code = 1003) 14.9 G/DL HEMATOCRIT (test code = 1004) 45.8 % MCV (test code = 1005) 91.2 fL MCH (test code = 1006) 29.7 PG MCHC (test code = 1007) 32.5 G/DL RDW (test code = 1038) 13.1 % NEUTROPHILS (test code = 1008) 68.8 % LYMPHOCYTES (test code = 1010) 20.7 % MONOCYTES (test code = 1011) 7.8 % EOSINOPHILS (test code = 1012) 1.7 % BASOPHILS (test code = 1013) 0.4 % IMMATURE GRANULOCYTES (test code = 1036) 0.6 % NUCLEATED RBCS (test code = 1065) 0.0 /100WBC'S PLATELET COUNT (test code = 1015) 158 K/UL ABSOLUTE NEUTROPHILS (test c ode = 1066) 3.55 K/UL ABSOLUTE LYMPHOCYTES (test c ode = 1067) 1.07 K/UL ABSOLUTE MONOCYTES (test cod e = 1068) 0.40 K/UL ABSOLUTE EOSINOPHILS (test c ode = 1040) 0.09 K/UL ABSOLUTE BASOPHILS (test cod e = 1069) 0.02 K/UL ABS IMMATURE GRANULOCYTES (t est code = 1020) 0.03 K/UL ABS NUCLEATED RBCS (test cod e = 92310) 0.00 K/UL Gunnar LoyaLIPID [id number] 00:00:00* Test Item Value Reference Range Interpretation Comme nts CHOLESTEROL (test code = 2210) 141 MG/DL TRIGLYCERIDES (test code = 2232) 101 MG/DL HDL CHOLESTEROL (test code = 2220) 40 MG/DL CALC LDL CHOL (test code = 2237) 82 MG/DL RISK RATIO LDL/HDL (test cod e = 2238) 2.05 RATIO Gunnar LoyaHEMOGLOBIN [id number] 00:00:00* Test Item Value Reference Range Interpretation Comme pierce HEMOGLOBIN A1c (test code = 13293) 8.8 % Gunnar LoyaCOMPREHENSIVE METABOLIC [id number] 00:00:00* Test Item Value Reference Range Interpretation Comme nts GLUCOSE (test code = 2217) 119 MG/DL BUN (test code = 2208) 18 MG/DL CREATININE (test code = 2214) 0.96 MG/DL eGFR (2020 CKD-EPI) (test co de = 15487) 87 ML/MIN/1.73 CALC BUN/CREAT (test code = 2235) 19 RATIO SODIUM (test code = 2231) 145 MEQ/L POTASSIUM (test code = 2228) 4.3 MEQ/L CHLORIDE (test code = 2215) 106 MEQ/L CARBON DIOXIDE (test code = 2206) 24 MEQ/L CALCIUM (test code = 2209) 9.2 MG/DL PROTEIN, TOTAL (test code = 2229) 6.9 G/DL ALBUMIN (test code = 2201) 4.7 G/DL CALC GLOBULIN (test code = 2240) 2.2 G/DL CALC A/G RATIO (test code = 2234) 2.1 RATIO BILIRUBIN, TOTAL (test code = 2207) 0.7 MG/DL ALKALINE PHOSPHATASE (test code = 2204) 100 U/L AST (test code = 2218) 30 U/L ALT (test code = 2219) 44 U/L Gunnar LoyaHEPATITIS C [id number] 00:00:00* Test Item Value Reference Range Interpretation Comme pierce HEPATITIS C ANTIBODY (test c ode = 4675) NON-REACTIVE Gunnar LoyaPSA, [id number] 00:00:00* Test Item Value Reference Range Interpretation Comme nts PSA, TOTAL (test code = 2606) 0.59 NG/ML Gunnar LoyaURINALYSIS W/REFLEX [id number] 00:00:00* Test Item Value Reference Range Interpretation Comme nts COLOR (test code = 1501) DARK YELLOW APPEARANCE (test code = 1502) TURBID SPECIFIC GRAVITY (test code = 1503) 1.025 LEUKOCYTE ESTERASE (test cod e = 1504) NEGATIVE NITRITE (test code = 1505) NEGATIVE pH (test code = 1506) 5.5 PROTEIN (test code = 1507) NEGATIVE GLUCOSE (test code = 1508) NEGATIVE KETONES (test code = 1509) NEGATIVE UROBILINOGEN (test code = 1510) 0.2 MG/DL BILIRUBIN (test code = 1511) NEGATIVE OCCULT BLOOD (test code = 1512) NEGATIVE WHITE BLOOD CELLS (test code = 1513) 0-5 /HPF RED BLOOD CELLS (test code = 1514) 0-2 /HPF EPITHELIAL CELLS (test code = 97755) 0-5 /HPF BACTERIA (test code = 1515) NONE SEEN CASTS, HYALINE (test code = 1517) NONE SEEN Gunnar Coley VincenzoALBUMIN/CREATININE RATIO, RANDOM [id number] 00:00:00* Test Item Value Reference Range Interpretation Comme nts CREATININE, URINE, CONC. (te st code = 2072) 238.8 MG/DL ALBUMIN, URINE, RANDOM (test code = 25382) 1.1 MG/DL CALC ALBUMIN/CREAT, RND (genevieve t code = 48696) 5 MG/G Gunnar Coley VincenzoCBC W/AUTO [id number] 00:00:00* Test Item Value Reference Range Interpretation Comme nts WBC (test code = 1001) 4.8 K/UL RBC (test code = 1002) 4.36 M/UL HEMOGLOBIN (test code = 1003) 13.4 G/DL HEMATOCRIT (test code = 1004) 40.3 % MCV (test code = 1005) 92.4 fL MCH (test code = 1006) 30.7 PG MCHC (test code = 1007) 33.3 G/DL RDW (test code = 1038) 14.2 % NEUTROPHILS (test code = 1008) 67.6 % LYMPHOCYTES (test code = 1010) 21.1 % MONOCYTES (test code = 1011) 9.0 % EOSINOPHILS (test code = 1012) 1.3 % BASOPHILS (test code = 1013) 0.4 % IMMATURE GRANULOCYTES (test code = 1036) 0.6 % NUCLEATED RBCS (test code = 1065) 0.0 /100WBC'S PLATELET COUNT (test code = 1015) 158 K/UL ABSOLUTE NEUTROPHILS (test c ode = 1066) 3.24 K/UL ABSOLUTE LYMPHOCYTES (test c ode = 1067) 1.01 K/UL ABSOLUTE MONOCYTES (test cod e = 1068) 0.43 K/UL ABSOLUTE EOSINOPHILS (test c ode = 1040) 0.06 K/UL ABSOLUTE BASOPHILS (test cod e = 1069) 0.02 K/UL ABS IMMATURE GRANULOCYTES (t est code = 1020) 0.03 K/UL ABS NUCLEATED RBCS (test cod e = 92670) 0.00 K/UL Gunnar LoyaLIPID [id number] 00:00:00* Test Item Value Reference Range Interpretation Comme nts CHOLESTEROL (test code = 2210) 103 MG/DL TRIGLYCERIDES (test code = 2232) 53 MG/DL HDL CHOLESTEROL (test code = 2220) 45 MG/DL CALC LDL CHOL (test code = 2237) 45 MG/DL RISK RATIO LDL/HDL (test cod e = 2238) 1.00 RATIO Gunnar LoyaCBC W/AUTO [id number] 00:00:00* Test Item Value Reference Range Interpretation Comme nts WBC (test code = 1001) 4.8 K/UL RBC (test code = 1002) 4.36 M/UL HEMOGLOBIN (test code = 1003) 13.4 G/DL HEMATOCRIT (test code = 1004) 40.3 % MCV (test code = 1005) 92.4 fL MCH (test code = 1006) 30.7 PG MCHC (test code = 1007) 33.3 G/DL RDW (test code = 1038) 14.2 % NEUTROPHILS (test code = 1008) 67.6 % LYMPHOCYTES (test code = 1010) 21.1 % MONOCYTES (test code = 1011) 9.0 % EOSINOPHILS (test code = 1012) 1.3 % BASOPHILS (test code = 1013) 0.4 % IMMATURE GRANULOCYTES (test code = 1036) 0.6 % NUCLEATED RBCS (test code = 1065) 0.0 /100WBC'S PLATELET COUNT (test code = 1015) 158 K/UL ABSOLUTE NEUTROPHILS (test c ode = 1066) 3.24 K/UL ABSOLUTE LYMPHOCYTES (test c ode = 1067) 1.01 K/UL ABSOLUTE MONOCYTES (test cod e = 1068) 0.43 K/UL ABSOLUTE EOSINOPHILS (test c ode = 1040) 0.06 K/UL ABSOLUTE BASOPHILS (test cod e = 1069) 0.02 K/UL ABS IMMATURE GRANULOCYTES (t est code = 1020) 0.03 K/UL ABS NUCLEATED RBCS (test cod e = 53398) 0.00 K/UL Gunnar LoyaLIPID [id number] 00:00:00* Test Item Value Reference Range Interpretation Comme nts CHOLESTEROL (test code = 2210) 103 MG/DL TRIGLYCERIDES (test code = 2232) 53 MG/DL HDL CHOLESTEROL (test code = 2220) 45 MG/DL CALC LDL CHOL (test code = 2237) 45 MG/DL RISK RATIO LDL/HDL (test cod e = 2238) 1.00 RATIO Gunnar LoyaCBC W/AUTO [id number] 00:00:00* Test Item Value Reference Range Interpretation Comme nts WBC (test code = 1001) 4.8 K/UL RBC (test code = 1002) 4.36 M/UL HEMOGLOBIN (test code = 1003) 13.4 G/DL HEMATOCRIT (test code = 1004) 40.3 % MCV (test code = 1005) 92.4 fL MCH (test code = 1006) 30.7 PG MCHC (test code = 1007) 33.3 G/DL RDW (test code = 1038) 14.2 % NEUTROPHILS (test code = 1008) 67.6 % LYMPHOCYTES (test code = 1010) 21.1 % MONOCYTES (test code = 1011) 9.0 % EOSINOPHILS (test code = 1012) 1.3 % BASOPHILS (test code = 1013) 0.4 % IMMATURE GRANULOCYTES (test code = 1036) 0.6 % NUCLEATED RBCS (test code = 1065) 0.0 /100WBC'S PLATELET COUNT (test code = 1015) 158 K/UL ABSOLUTE NEUTROPHILS (test c ode = 1066) 3.24 K/UL ABSOLUTE LYMPHOCYTES (test c ode = 1067) 1.01 K/UL ABSOLUTE MONOCYTES (test cod e = 1068) 0.43 K/UL ABSOLUTE EOSINOPHILS (test c ode = 1040) 0.06 K/UL ABSOLUTE BASOPHILS (test cod e = 1069) 0.02 K/UL ABS IMMATURE GRANULOCYTES (t est code = 1020) 0.03 K/UL ABS NUCLEATED RBCS (test cod e = 06871) 0.00 K/UL Gunnar LoyaLIPID [id number] 00:00:00* Test Item Value Reference Range Interpretation Comme nts CHOLESTEROL (test code = 2210) 103 MG/DL TRIGLYCERIDES (test code = 2232) 53 MG/DL HDL CHOLESTEROL (test code = 2220) 45 MG/DL CALC LDL CHOL (test code = 2237) 45 MG/DL RISK RATIO LDL/HDL (test cod e = 2238) 1.00 RATIO Gunnar LoyaCBC W/AUTO [id number] 00:00:00* Test Item Value Reference Range Interpretation Comme nts WBC (test code = 1001) 4.8 K/UL RBC (test code = 1002) 4.36 M/UL HEMOGLOBIN (test code = 1003) 13.4 G/DL HEMATOCRIT (test code = 1004) 40.3 % MCV (test code = 1005) 92.4 fL MCH (test code = 1006) 30.7 PG MCHC (test code = 1007) 33.3 G/DL RDW (test code = 1038) 14.2 % NEUTROPHILS (test code = 1008) 67.6 % LYMPHOCYTES (test code = 1010) 21.1 % MONOCYTES (test code = 1011) 9.0 % EOSINOPHILS (test code = 1012) 1.3 % BASOPHILS (test code = 1013) 0.4 % IMMATURE GRANULOCYTES (test code = 1036) 0.6 % NUCLEATED RBCS (test code = 1065) 0.0 /100WBC'S PLATELET COUNT (test code = 1015) 158 K/UL ABSOLUTE NEUTROPHILS (test c ode = 1066) 3.24 K/UL ABSOLUTE LYMPHOCYTES (test c ode = 1067) 1.01 K/UL ABSOLUTE MONOCYTES (test cod e = 1068) 0.43 K/UL ABSOLUTE EOSINOPHILS (test c ode = 1040) 0.06 K/UL ABSOLUTE BASOPHILS (test cod e = 1069) 0.02 K/UL ABS IMMATURE GRANULOCYTES (t est code = 1020) 0.03 K/UL ABS NUCLEATED RBCS (test cod e = 31321) 0.00 K/UL Gunnar LoyaLIPID [id number] 00:00:00* Test Item Value Reference Range Interpretation Comme nts CHOLESTEROL (test code = 2210) 103 MG/DL TRIGLYCERIDES (test code = 2232) 53 MG/DL HDL CHOLESTEROL (test code = 2220) 45 MG/DL CALC LDL CHOL (test code = 2237) 45 MG/DL RISK RATIO LDL/HDL (test cod e = 2238) 1.00 RATIO Gunnar LoyaCBC W/AUTO [id number] 00:00:00* Test Item Value Reference Range Interpretation Comme nts WBC (test code = 1001) 4.8 K/UL RBC (test code = 1002) 4.36 M/UL HEMOGLOBIN (test code = 1003) 13.4 G/DL HEMATOCRIT (test code = 1004) 40.3 % MCV (test code = 1005) 92.4 fL MCH (test code = 1006) 30.7 PG MCHC (test code = 1007) 33.3 G/DL RDW (test code = 1038) 14.2 % NEUTROPHILS (test code = 1008) 67.6 % LYMPHOCYTES (test code = 1010) 21.1 % MONOCYTES (test code = 1011) 9.0 % EOSINOPHILS (test code = 1012) 1.3 % BASOPHILS (test code = 1013) 0.4 % IMMATURE GRANULOCYTES (test code = 1036) 0.6 % NUCLEATED RBCS (test code = 1065) 0.0 /100WBC'S PLATELET COUNT (test code = 1015) 158 K/UL ABSOLUTE NEUTROPHILS (test c ode = 1066) 3.24 K/UL ABSOLUTE LYMPHOCYTES (test c ode = 1067) 1.01 K/UL ABSOLUTE MONOCYTES (test cod e = 1068) 0.43 K/UL ABSOLUTE EOSINOPHILS (test c ode = 1040) 0.06 K/UL ABSOLUTE BASOPHILS (test cod e = 1069) 0.02 K/UL ABS IMMATURE GRANULOCYTES (t est code = 1020) 0.03 K/UL ABS NUCLEATED RBCS (test cod e = 81675) 0.00 K/UL Gunnar LoyaLIPID [id number] 00:00:00* Test Item Value Reference Range Interpretation Comme nts CHOLESTEROL (test code = 2210) 103 MG/DL TRIGLYCERIDES (test code = 2232) 53 MG/DL HDL CHOLESTEROL (test code = 2220) 45 MG/DL CALC LDL CHOL (test code = 2237) 45 MG/DL RISK RATIO LDL/HDL (test cod e = 2238) 1.00 RATIO Gunnar LoyaCBC W/AUTO [id number] 00:00:00* Test Item Value Reference Range Interpretation Comme nts WBC (test code = 1001) 4.8 K/UL RBC (test code = 1002) 4.36 M/UL HEMOGLOBIN (test code = 1003) 13.4 G/DL HEMATOCRIT (test code = 1004) 40.3 % MCV (test code = 1005) 92.4 fL MCH (test code = 1006) 30.7 PG MCHC (test code = 1007) 33.3 G/DL RDW (test code = 1038) 14.2 % NEUTROPHILS (test code = 1008) 67.6 % LYMPHOCYTES (test code = 1010) 21.1 % MONOCYTES (test code = 1011) 9.0 % EOSINOPHILS (test code = 1012) 1.3 % BASOPHILS (test code = 1013) 0.4 % IMMATURE GRANULOCYTES (test code = 1036) 0.6 % NUCLEATED RBCS (test code = 1065) 0.0 /100WBC'S PLATELET COUNT (test code = 1015) 158 K/UL ABSOLUTE NEUTROPHILS (test c ode = 1066) 3.24 K/UL ABSOLUTE LYMPHOCYTES (test c ode = 1067) 1.01 K/UL ABSOLUTE MONOCYTES (test cod e = 1068) 0.43 K/UL ABSOLUTE EOSINOPHILS (test c ode = 1040) 0.06 K/UL ABSOLUTE BASOPHILS (test cod e = 1069) 0.02 K/UL ABS IMMATURE GRANULOCYTES (t est code = 1020) 0.03 K/UL ABS NUCLEATED RBCS (test cod e = 04195) 0.00 K/UL Gunnar LoyaLIPID [id number] 00:00:00* Test Item Value Reference Range Interpretation Comme nts CHOLESTEROL (test code = 2210) 103 MG/DL TRIGLYCERIDES (test code = 2232) 53 MG/DL HDL CHOLESTEROL (test code = 2220) 45 MG/DL CALC LDL CHOL (test code = 2237) 45 MG/DL RISK RATIO LDL/HDL (test cod e = 2238) 1.00 RATIO Gunnar LoyaCBC W/AUTO [id number] 00:00:00* Test Item Value Reference Range Interpretation Comme nts WBC (test code = 1001) 4.8 K/UL RBC (test code = 1002) 4.36 M/UL HEMOGLOBIN (test code = 1003) 13.4 G/DL HEMATOCRIT (test code = 1004) 40.3 % MCV (test code = 1005) 92.4 fL MCH (test code = 1006) 30.7 PG MCHC (test code = 1007) 33.3 G/DL RDW (test code = 1038) 14.2 % NEUTROPHILS (test code = 1008) 67.6 % LYMPHOCYTES (test code = 1010) 21.1 % MONOCYTES (test code = 1011) 9.0 % EOSINOPHILS (test code = 1012) 1.3 % BASOPHILS (test code = 1013) 0.4 % IMMATURE GRANULOCYTES (test code = 1036) 0.6 % NUCLEATED RBCS (test code = 1065) 0.0 /100WBC'S PLATELET COUNT (test code = 1015) 158 K/UL ABSOLUTE NEUTROPHILS (test c ode = 1066) 3.24 K/UL ABSOLUTE LYMPHOCYTES (test c ode = 1067) 1.01 K/UL ABSOLUTE MONOCYTES (test cod e = 1068) 0.43 K/UL ABSOLUTE EOSINOPHILS (test c ode = 1040) 0.06 K/UL ABSOLUTE BASOPHILS (test cod e = 1069) 0.02 K/UL ABS IMMATURE GRANULOCYTES (t est code = 1020) 0.03 K/UL ABS NUCLEATED RBCS (test cod e = 60507) 0.00 K/UL Gunnar LoyaLIPID [id number] 00:00:00* Test Item Value Reference Range Interpretation Comme nts CHOLESTEROL (test code = 2210) 103 MG/DL TRIGLYCERIDES (test code = 2232) 53 MG/DL HDL CHOLESTEROL (test code = 2220) 45 MG/DL CALC LDL CHOL (test code = 2237) 45 MG/DL RISK RATIO LDL/HDL (test cod e = 2238) 1.00 RATIO Gunnar Coley VincenzoCBC W/AUTO [id number] 00:00:00* Test Item Value Reference Range Interpretation Comme nts WBC (test code = 1001) 4.7 K/UL RBC (test code = 1002) 4.38 M/UL HEMOGLOBIN (test code = 1003) 13.3 G/DL HEMATOCRIT (test code = 1004) 39.9 % MCV (test code = 1005) 91.1 fL MCH (test code = 1006) 30.4 PG MCHC (test code = 1007) 33.3 G/DL RDW (test code = 1038) 13.5 % NEUTROPHILS (test code = 1008) 67.1 % LYMPHOCYTES (test code = 1010) 21.7 % MONOCYTES (test code = 1011) 8.7 % EOSINOPHILS (test code = 1012) 1.3 % BASOPHILS (test code = 1013) 0.4 % IMMATURE GRANULOCYTES (test code = 1036) 0.8 % NUCLEATED RBCS (test code = 1065) 0.0 /100WBC'S PLATELET COUNT (test code = 1015) 148 K/UL ABSOLUTE NEUTROPHILS (test c ode = 1066) 3.16 K/UL ABSOLUTE LYMPHOCYTES (test c ode = 1067) 1.02 K/UL ABSOLUTE MONOCYTES (test cod e = 1068) 0.41 K/UL ABSOLUTE EOSINOPHILS (test c ode = 1040) 0.06 K/UL ABSOLUTE BASOPHILS (test cod e = 1069) 0.02 K/UL ABS IMMATURE GRANULOCYTES (t est code = 1020) 0.04 K/UL ABS NUCLEATED RBCS (test cod e = 51324) 0.00 K/UL Gunnar LoyaCOMPREHENSIVE METABOLIC [id number] 00:00:00* Test Item Value Reference Range Interpretation Comme nts GLUCOSE (test code = 2217) 95 MG/DL BUN (test code = 2208) 21 MG/DL CREATININE (test code = 2214) 0.92 MG/DL eGFR (2020 CKD-EPI) (test co de = 06496) 92 ML/MIN/1.73 CALC BUN/CREAT (test code = 2235) 23 RATIO SODIUM (test code = 2231) 144 MEQ/L POTASSIUM (test code = 2228) 4.4 MEQ/L CHLORIDE (test code = 2215) 105 MEQ/L CARBON DIOXIDE (test code = 2206) 23 MEQ/L CALCIUM (test code = 2209) 9.7 MG/DL PROTEIN, TOTAL (test code = 2229) 6.6 G/DL ALBUMIN (test code = 2201) 4.5 G/DL CALC GLOBULIN (test code = 2240) 2.1 G/DL CALC A/G RATIO (test code = 2234) 2.1 RATIO BILIRUBIN, TOTAL (test code = 2207) 0.5 MG/DL ALKALINE PHOSPHATASE (test code = 2204) 75 U/L AST (test code = 2218) 14 U/L ALT (test code = 2219) 18 U/L Gunnar Coley AustinURINALYSIS W/REFLEX [id number] 00:00:00* Test Item Value Reference Range Interpretation Comme nts COLOR (test code = 1501) YELLOW APPEARANCE (test code = 1502) CLEAR SPECIFIC GRAVITY (test code = 1503) 1.021 LEUKOCYTE ESTERASE (test cod e = 1504) NEGATIVE NITRITE (test code = 1505) NEGATIVE pH (test code = 1506) 7.5 PROTEIN (test code = 1507) NEGATIVE GLUCOSE (test code = 1508) NEGATIVE KETONES (test code = 1509) NEGATIVE UROBILINOGEN (test code = 1510) 0.2 MG/DL BILIRUBIN (test code = 1511) NEGATIVE OCCULT BLOOD (test code = 1512) NEGATIVE Gunnar LoyaLIPID [id number] 00:00:00* Test Item Value Reference Range Interpretation Comme nts CHOLESTEROL (test code = 2210) 107 MG/DL TRIGLYCERIDES (test code = 2232) 85 MG/DL HDL CHOLESTEROL (test code = 2220) 44 MG/DL CALC LDL CHOL (test code = 2237) 46 MG/DL RISK RATIO LDL/HDL (test cod e = 2238) 1.05 RATIO Gunnar LoyaHEMOGLOBIN [id number] 00:00:00* Test Item Value Reference Range Interpretation Comme pierce HEMOGLOBIN A1c (test code = 59061) 9.0 % Gunnar LoyaALBUMIN/CREATININE RATIO, RANDOM [id number] 00:00:00* Test Item Value Reference Range Interpretation Comme nts CREATININE, URINE, CONC. (te st code = 2072) 123.0 MG/DL ALBUMIN, URINE, RANDOM (test code = 12052) 2.0 MG/DL CALC ALBUMIN/CREAT, RND (genevieve t code = 92986) 16 MG/G Gunnar Coley VincenzoCBC W/AUTO [id number] 00:00:00* Test Item Value Reference Range Interpretation Comme nts WBC (test code = 1001) 4.7 K/UL RBC (test code = 1002) 4.38 M/UL HEMOGLOBIN (test code = 1003) 13.3 G/DL HEMATOCRIT (test code = 1004) 39.9 % MCV (test code = 1005) 91.1 fL MCH (test code = 1006) 30.4 PG MCHC (test code = 1007) 33.3 G/DL RDW (test code = 1038) 13.5 % NEUTROPHILS (test code = 1008) 67.1 % LYMPHOCYTES (test code = 1010) 21.7 % MONOCYTES (test code = 1011) 8.7 % EOSINOPHILS (test code = 1012) 1.3 % BASOPHILS (test code = 1013) 0.4 % IMMATURE GRANULOCYTES (test code = 1036) 0.8 % NUCLEATED RBCS (test code = 1065) 0.0 /100WBC'S PLATELET COUNT (test code = 1015) 148 K/UL ABSOLUTE NEUTROPHILS (test c ode = 1066) 3.16 K/UL ABSOLUTE LYMPHOCYTES (test c ode = 1067) 1.02 K/UL ABSOLUTE MONOCYTES (test cod e = 1068) 0.41 K/UL ABSOLUTE EOSINOPHILS (test c ode = 1040) 0.06 K/UL ABSOLUTE BASOPHILS (test cod e = 1069) 0.02 K/UL ABS IMMATURE GRANULOCYTES (t est code = 1020) 0.04 K/UL ABS NUCLEATED RBCS (test cod e = 85122) 0.00 K/UL Gunnar F VincenzoCOMPREHENSIVE METABOLIC [id number] 00:00:00* Test Item Value Reference Range Interpretation Comme nts GLUCOSE (test code = 2217) 95 MG/DL BUN (test code = 2208) 21 MG/DL CREATININE (test code = 2214) 0.92 MG/DL eGFR (2020 CKD-EPI) (test co de = 83973) 92 ML/MIN/1.73 CALC BUN/CREAT (test code = 2235) 23 RATIO SODIUM (test code = 2231) 144 MEQ/L POTASSIUM (test code = 2228) 4.4 MEQ/L CHLORIDE (test code = 2215) 105 MEQ/L CARBON DIOXIDE (test code = 2206) 23 MEQ/L CALCIUM (test code = 2209) 9.7 MG/DL PROTEIN, TOTAL (test code = 2229) 6.6 G/DL ALBUMIN (test code = 2201) 4.5 G/DL CALC GLOBULIN (test code = 2240) 2.1 G/DL CALC A/G RATIO (test code = 2234) 2.1 RATIO BILIRUBIN, TOTAL (test code = 2207) 0.5 MG/DL ALKALINE PHOSPHATASE (test code = 2204) 75 U/L AST (test code = 2218) 14 U/L ALT (test code = 2219) 18 U/L Gunnar Coley AustinURINALYSIS W/REFLEX [id number] 00:00:00* Test Item Value Reference Range Interpretation Comme nts COLOR (test code = 1501) YELLOW APPEARANCE (test code = 1502) CLEAR SPECIFIC GRAVITY (test code = 1503) 1.021 LEUKOCYTE ESTERASE (test cod e = 1504) NEGATIVE NITRITE (test code = 1505) NEGATIVE pH (test code = 1506) 7.5 PROTEIN (test code = 1507) NEGATIVE GLUCOSE (test code = 1508) NEGATIVE KETONES (test code = 1509) NEGATIVE UROBILINOGEN (test code = 1510) 0.2 MG/DL BILIRUBIN (test code = 1511) NEGATIVE OCCULT BLOOD (test code = 1512) NEGATIVE Gunnar LoyaLIPID [id number] 00:00:00* Test Item Value Reference Range Interpretation Comme nts CHOLESTEROL (test code = 2210) 107 MG/DL TRIGLYCERIDES (test code = 2232) 85 MG/DL HDL CHOLESTEROL (test code = 2220) 44 MG/DL CALC LDL CHOL (test code = 2237) 46 MG/DL RISK RATIO LDL/HDL (test cod e = 2238) 1.05 RATIO Gunnar LoyaHEMOGLOBIN [id number] 00:00:00* Test Item Value Reference Range Interpretation Comme nts HEMOGLOBIN A1c (test code = 61449) 9.0 % Gunnar LoyaALBUMIN/CREATININE RATIO, RANDOM [id number] 00:00:00* Test Item Value Reference Range Interpretation Comme nts CREATININE, URINE, CONC. (te st code = 2072) 123.0 MG/DL ALBUMIN, URINE, RANDOM (test code = 76849) 2.0 MG/DL CALC ALBUMIN/CREAT, RND (genevieve t code = 75565) 16 MG/G Gunnar Coley VincenzoCBC W/AUTO [id number] 00:00:00* Test Item Value Reference Range Interpretation Comme nts WBC (test code = 1001) 4.7 K/UL RBC (test code = 1002) 4.38 M/UL HEMOGLOBIN (test code = 1003) 13.3 G/DL HEMATOCRIT (test code = 1004) 39.9 % MCV (test code = 1005) 91.1 fL MCH (test code = 1006) 30.4 PG MCHC (test code = 1007) 33.3 G/DL RDW (test code = 1038) 13.5 % NEUTROPHILS (test code = 1008) 67.1 % LYMPHOCYTES (test code = 1010) 21.7 % MONOCYTES (test code = 1011) 8.7 % EOSINOPHILS (test code = 1012) 1.3 % BASOPHILS (test code = 1013) 0.4 % IMMATURE GRANULOCYTES (test code = 1036) 0.8 % NUCLEATED RBCS (test code = 1065) 0.0 /100WBC'S PLATELET COUNT (test code = 1015) 148 K/UL ABSOLUTE NEUTROPHILS (test c ode = 1066) 3.16 K/UL ABSOLUTE LYMPHOCYTES (test c ode = 1067) 1.02 K/UL ABSOLUTE MONOCYTES (test cod e = 1068) 0.41 K/UL ABSOLUTE EOSINOPHILS (test c ode = 1040) 0.06 K/UL ABSOLUTE BASOPHILS (test cod e = 1069) 0.02 K/UL ABS IMMATURE GRANULOCYTES (t est code = 1020) 0.04 K/UL ABS NUCLEATED RBCS (test cod e = 93994) 0.00 K/UL Gunnar LoyaCOMPREHENSIVE METABOLIC [id number] 00:00:00* Test Item Value Reference Range Interpretation Comme nts GLUCOSE (test code = 2217) 95 MG/DL BUN (test code = 2208) 21 MG/DL CREATININE (test code = 2214) 0.92 MG/DL eGFR (2020 CKD-EPI) (test co de = 82066) 92 ML/MIN/1.73 CALC BUN/CREAT (test code = 2235) 23 RATIO SODIUM (test code = 2231) 144 MEQ/L POTASSIUM (test code = 2228) 4.4 MEQ/L CHLORIDE (test code = 2215) 105 MEQ/L CARBON DIOXIDE (test code = 2206) 23 MEQ/L CALCIUM (test code = 2209) 9.7 MG/DL PROTEIN, TOTAL (test code = 2229) 6.6 G/DL ALBUMIN (test code = 2201) 4.5 G/DL CALC GLOBULIN (test code = 2240) 2.1 G/DL CALC A/G RATIO (test code = 2234) 2.1 RATIO BILIRUBIN, TOTAL (test code = 2207) 0.5 MG/DL ALKALINE PHOSPHATASE (test code = 2204) 75 U/L AST (test code = 2218) 14 U/L ALT (test code = 2219) 18 U/L Gunnar Coley VincenzoURINALYSIS W/REFLEX [id number] 00:00:00* Test Item Value Reference Range Interpretation Comme nts COLOR (test code = 1501) YELLOW APPEARANCE (test code = 1502) CLEAR SPECIFIC GRAVITY (test code = 1503) 1.021 LEUKOCYTE ESTERASE (test cod e = 1504) NEGATIVE NITRITE (test code = 1505) NEGATIVE pH (test code = 1506) 7.5 PROTEIN (test code = 1507) NEGATIVE GLUCOSE (test code = 1508) NEGATIVE KETONES (test code = 1509) NEGATIVE UROBILINOGEN (test code = 1510) 0.2 MG/DL BILIRUBIN (test code = 1511) NEGATIVE OCCULT BLOOD (test code = 1512) NEGATIVE Gunnar LoyaLIPID [id number] 00:00:00* Test Item Value Reference Range Interpretation Comme nts CHOLESTEROL (test code = 2210) 107 MG/DL TRIGLYCERIDES (test code = 2232) 85 MG/DL HDL CHOLESTEROL (test code = 2220) 44 MG/DL CALC LDL CHOL (test code = 2237) 46 MG/DL RISK RATIO LDL/HDL (test cod e = 2238) 1.05 RATIO Gunnar LoyaHEMOGLOBIN [id number] 00:00:00* Test Item Value Reference Range Interpretation Comme pierce HEMOGLOBIN A1c (test code = 65485) 9.0 % Gunnar LoyaALBUMIN/CREATININE RATIO, RANDOM [id number] 00:00:00* Test Item Value Reference Range Interpretation Comme nts CREATININE, URINE, CONC. (te st code = 2072) 123.0 MG/DL ALBUMIN, URINE, RANDOM (test code = 22936) 2.0 MG/DL CALC ALBUMIN/CREAT, RND (genevieve t code = 43338) 16 MG/G Gunnar LoyaCBC W/AUTO [id number] 00:00:00* Test Item Value Reference Range Interpretation Comme nts WBC (test code = 1001) 4.7 K/UL RBC (test code = 1002) 4.38 M/UL HEMOGLOBIN (test code = 1003) 13.3 G/DL HEMATOCRIT (test code = 1004) 39.9 % MCV (test code = 1005) 91.1 fL MCH (test code = 1006) 30.4 PG MCHC (test code = 1007) 33.3 G/DL RDW (test code = 1038) 13.5 % NEUTROPHILS (test code = 1008) 67.1 % LYMPHOCYTES (test code = 1010) 21.7 % MONOCYTES (test code = 1011) 8.7 % EOSINOPHILS (test code = 1012) 1.3 % BASOPHILS (test code = 1013) 0.4 % IMMATURE GRANULOCYTES (test code = 1036) 0.8 % NUCLEATED RBCS (test code = 1065) 0.0 /100WBC'S PLATELET COUNT (test code = 1015) 148 K/UL ABSOLUTE NEUTROPHILS (test c ode = 1066) 3.16 K/UL ABSOLUTE LYMPHOCYTES (test c ode = 1067) 1.02 K/UL ABSOLUTE MONOCYTES (test cod e = 1068) 0.41 K/UL ABSOLUTE EOSINOPHILS (test c ode = 1040) 0.06 K/UL ABSOLUTE BASOPHILS (test cod e = 1069) 0.02 K/UL ABS IMMATURE GRANULOCYTES (t est code = 1020) 0.04 K/UL ABS NUCLEATED RBCS (test cod e = 51194) 0.00 K/UL Gunnar LoyaCOMPREHENSIVE METABOLIC [id number] 00:00:00* Test Item Value Reference Range Interpretation Comme nts GLUCOSE (test code = 2217) 95 MG/DL BUN (test code = 2208) 21 MG/DL CREATININE (test code = 2214) 0.92 MG/DL eGFR (2020 CKD-EPI) (test co de = 82002) 92 ML/MIN/1.73 CALC BUN/CREAT (test code = 2235) 23 RATIO SODIUM (test code = 2231) 144 MEQ/L POTASSIUM (test code = 2228) 4.4 MEQ/L CHLORIDE (test code = 2215) 105 MEQ/L CARBON DIOXIDE (test code = 2206) 23 MEQ/L CALCIUM (test code = 2209) 9.7 MG/DL PROTEIN, TOTAL (test code = 2229) 6.6 G/DL ALBUMIN (test code = 2201) 4.5 G/DL CALC GLOBULIN (test code = 2240) 2.1 G/DL CALC A/G RATIO (test code = 2234) 2.1 RATIO BILIRUBIN, TOTAL (test code = 2207) 0.5 MG/DL ALKALINE PHOSPHATASE (test code = 2204) 75 U/L AST (test code = 2218) 14 U/L ALT (test code = 2219) 18 U/L Gunnar Coley VincenzoURINALYSIS W/REFLEX [id number] 00:00:00* Test Item Value Reference Range Interpretation Comme nts COLOR (test code = 1501) YELLOW APPEARANCE (test code = 1502) CLEAR SPECIFIC GRAVITY (test code = 1503) 1.021 LEUKOCYTE ESTERASE (test cod e = 1504) NEGATIVE NITRITE (test code = 1505) NEGATIVE pH (test code = 1506) 7.5 PROTEIN (test code = 1507) NEGATIVE GLUCOSE (test code = 1508) NEGATIVE KETONES (test code = 1509) NEGATIVE UROBILINOGEN (test code = 1510) 0.2 MG/DL BILIRUBIN (test code = 1511) NEGATIVE OCCULT BLOOD (test code = 1512) NEGATIVE Gunnar LoyaLIPID [id number] 00:00:00* Test Item Value Reference Range Interpretation Comme nts CHOLESTEROL (test code = 2210) 107 MG/DL TRIGLYCERIDES (test code = 2232) 85 MG/DL HDL CHOLESTEROL (test code = 2220) 44 MG/DL CALC LDL CHOL (test code = 2237) 46 MG/DL RISK RATIO LDL/HDL (test cod e = 2238) 1.05 RATIO Gunnar LoyaHEMOGLOBIN [id number] 00:00:00* Test Item Value Reference Range Interpretation Comme nts HEMOGLOBIN A1c (test code = 32974) 9.0 % Gunnar Coley VincenzoALBUMIN/CREATININE RATIO, RANDOM [id number] 00:00:00* Test Item Value Reference Range Interpretation Comme nts CREATININE, URINE, CONC. (te st code = 2072) 123.0 MG/DL ALBUMIN, URINE, RANDOM (test code = 47070) 2.0 MG/DL CALC ALBUMIN/CREAT, RND (genevieve t code = 27035) 16 MG/G Gunnar LoyaCBC W/AUTO [id number] 00:00:00* Test Item Value Reference Range Interpretation Comme nts WBC (test code = 1001) 4.7 K/UL RBC (test code = 1002) 4.38 M/UL HEMOGLOBIN (test code = 1003) 13.3 G/DL HEMATOCRIT (test code = 1004) 39.9 % MCV (test code = 1005) 91.1 fL MCH (test code = 1006) 30.4 PG MCHC (test code = 1007) 33.3 G/DL RDW (test code = 1038) 13.5 % NEUTROPHILS (test code = 1008) 67.1 % LYMPHOCYTES (test code = 1010) 21.7 % MONOCYTES (test code = 1011) 8.7 % EOSINOPHILS (test code = 1012) 1.3 % BASOPHILS (test code = 1013) 0.4 % IMMATURE GRANULOCYTES (test code = 1036) 0.8 % NUCLEATED RBCS (test code = 1065) 0.0 /100WBC'S PLATELET COUNT (test code = 1015) 148 K/UL ABSOLUTE NEUTROPHILS (test c ode = 1066) 3.16 K/UL ABSOLUTE LYMPHOCYTES (test c ode = 1067) 1.02 K/UL ABSOLUTE MONOCYTES (test cod e = 1068) 0.41 K/UL ABSOLUTE EOSINOPHILS (test c ode = 1040) 0.06 K/UL ABSOLUTE BASOPHILS (test cod e = 1069) 0.02 K/UL ABS IMMATURE GRANULOCYTES (t est code = 1020) 0.04 K/UL ABS NUCLEATED RBCS (test cod e = 29211) 0.00 K/UL Gunnar LoyaCOMPREHENSIVE METABOLIC [id number] 00:00:00* Test Item Value Reference Range Interpretation Comme nts GLUCOSE (test code = 2217) 95 MG/DL BUN (test code = 2208) 21 MG/DL CREATININE (test code = 2214) 0.92 MG/DL eGFR (2020 CKD-EPI) (test co de = 21060) 92 ML/MIN/1.73 CALC BUN/CREAT (test code = 2235) 23 RATIO SODIUM (test code = 2231) 144 MEQ/L POTASSIUM (test code = 2228) 4.4 MEQ/L CHLORIDE (test code = 2215) 105 MEQ/L CARBON DIOXIDE (test code = 2206) 23 MEQ/L CALCIUM (test code = 2209) 9.7 MG/DL PROTEIN, TOTAL (test code = 2229) 6.6 G/DL ALBUMIN (test code = 2201) 4.5 G/DL CALC GLOBULIN (test code = 2240) 2.1 G/DL CALC A/G RATIO (test code = 2234) 2.1 RATIO BILIRUBIN, TOTAL (test code = 2207) 0.5 MG/DL ALKALINE PHOSPHATASE (test code = 2204) 75 U/L AST (test code = 2218) 14 U/L ALT (test code = 2219) 18 U/L Gunnar LoyaURINALYSIS W/REFLEX [id number] 00:00:00* Test Item Value Reference Range Interpretation Comme nts COLOR (test code = 1501) YELLOW APPEARANCE (test code = 1502) CLEAR SPECIFIC GRAVITY (test code = 1503) 1.021 LEUKOCYTE ESTERASE (test cod e = 1504) NEGATIVE NITRITE (test code = 1505) NEGATIVE pH (test code = 1506) 7.5 PROTEIN (test code = 1507) NEGATIVE GLUCOSE (test code = 1508) NEGATIVE KETONES (test code = 1509) NEGATIVE UROBILINOGEN (test code = 1510) 0.2 MG/DL BILIRUBIN (test code = 1511) NEGATIVE OCCULT BLOOD (test code = 1512) NEGATIVE Gunnar LoyaLIPID [id number] 00:00:00* Test Item Value Reference Range Interpretation Comme nts CHOLESTEROL (test code = 2210) 107 MG/DL TRIGLYCERIDES (test code = 2232) 85 MG/DL HDL CHOLESTEROL (test code = 2220) 44 MG/DL CALC LDL CHOL (test code = 2237) 46 MG/DL RISK RATIO LDL/HDL (test cod e = 2238) 1.05 RATIO Gunnar LoyaHEMOGLOBIN [id number] 00:00:00* Test Item Value Reference Range Interpretation Comme nts HEMOGLOBIN A1c (test code = 89014) 9.0 % Gunnar LoyaALBUMIN/CREATININE RATIO, RANDOM [id number] 00:00:00* Test Item Value Reference Range Interpretation Comme nts CREATININE, URINE, CONC. (te st code = 2072) 123.0 MG/DL ALBUMIN, URINE, RANDOM (test code = 86749) 2.0 MG/DL CALC ALBUMIN/CREAT, RND (genevieve t code = 09200) 16 MG/G Gunnar LoyaCBC W/AUTO [id number] 00:00:00* Test Item Value Reference Range Interpretation Comme nts WBC (test code = 1001) 4.7 K/UL RBC (test code = 1002) 4.38 M/UL HEMOGLOBIN (test code = 1003) 13.3 G/DL HEMATOCRIT (test code = 1004) 39.9 % MCV (test code = 1005) 91.1 fL MCH (test code = 1006) 30.4 PG MCHC (test code = 1007) 33.3 G/DL RDW (test code = 1038) 13.5 % NEUTROPHILS (test code = 1008) 67.1 % LYMPHOCYTES (test code = 1010) 21.7 % MONOCYTES (test code = 1011) 8.7 % EOSINOPHILS (test code = 1012) 1.3 % BASOPHILS (test code = 1013) 0.4 % IMMATURE GRANULOCYTES (test code = 1036) 0.8 % NUCLEATED RBCS (test code = 1065) 0.0 /100WBC'S PLATELET COUNT (test code = 1015) 148 K/UL ABSOLUTE NEUTROPHILS (test c ode = 1066) 3.16 K/UL ABSOLUTE LYMPHOCYTES (test c ode = 1067) 1.02 K/UL ABSOLUTE MONOCYTES (test cod e = 1068) 0.41 K/UL ABSOLUTE EOSINOPHILS (test c ode = 1040) 0.06 K/UL ABSOLUTE BASOPHILS (test cod e = 1069) 0.02 K/UL ABS IMMATURE GRANULOCYTES (t est code = 1020) 0.04 K/UL ABS NUCLEATED RBCS (test cod e = 35007) 0.00 K/UL Gunnar LoyaCOMPREHENSIVE METABOLIC [id number] 00:00:00* Test Item Value Reference Range Interpretation Comme nts GLUCOSE (test code = 2217) 95 MG/DL BUN (test code = 2208) 21 MG/DL CREATININE (test code = 2214) 0.92 MG/DL eGFR (2020 CKD-EPI) (test co de = 90889) 92 ML/MIN/1.73 CALC BUN/CREAT (test code = 2235) 23 RATIO SODIUM (test code = 2231) 144 MEQ/L POTASSIUM (test code = 2228) 4.4 MEQ/L CHLORIDE (test code = 2215) 105 MEQ/L CARBON DIOXIDE (test code = 2206) 23 MEQ/L CALCIUM (test code = 2209) 9.7 MG/DL PROTEIN, TOTAL (test code = 2229) 6.6 G/DL ALBUMIN (test code = 2201) 4.5 G/DL CALC GLOBULIN (test code = 2240) 2.1 G/DL CALC A/G RATIO (test code = 2234) 2.1 RATIO BILIRUBIN, TOTAL (test code = 2207) 0.5 MG/DL ALKALINE PHOSPHATASE (test code = 2204) 75 U/L AST (test code = 2218) 14 U/L ALT (test code = 2219) 18 U/L Gunnar Coley AustinURINALYSIS W/REFLEX [id number] 00:00:00* Test Item Value Reference Range Interpretation Comme nts COLOR (test code = 1501) YELLOW APPEARANCE (test code = 1502) CLEAR SPECIFIC GRAVITY (test code = 1503) 1.021 LEUKOCYTE ESTERASE (test cod e = 1504) NEGATIVE NITRITE (test code = 1505) NEGATIVE pH (test code = 1506) 7.5 PROTEIN (test code = 1507) NEGATIVE GLUCOSE (test code = 1508) NEGATIVE KETONES (test code = 1509) NEGATIVE UROBILINOGEN (test code = 1510) 0.2 MG/DL BILIRUBIN (test code = 1511) NEGATIVE OCCULT BLOOD (test code = 1512) NEGATIVE Gunnar LoyaLIPID [id number] 00:00:00* Test Item Value Reference Range Interpretation Comme nts CHOLESTEROL (test code = 2210) 107 MG/DL TRIGLYCERIDES (test code = 2232) 85 MG/DL HDL CHOLESTEROL (test code = 2220) 44 MG/DL CALC LDL CHOL (test code = 2237) 46 MG/DL RISK RATIO LDL/HDL (test cod e = 2238) 1.05 RATIO Gunnar LoyaHEMOGLOBIN [id number] 00:00:00* Test Item Value Reference Range Interpretation Comme nts HEMOGLOBIN A1c (test code = 32437) 9.0 % Gunnar LoyaALBUMIN/CREATININE RATIO, RANDOM [id number] 00:00:00* Test Item Value Reference Range Interpretation Comme nts CREATININE, URINE, CONC. (te st code = 2072) 123.0 MG/DL ALBUMIN, URINE, RANDOM (test code = 33226) 2.0 MG/DL CALC ALBUMIN/CREAT, RND (genevieve t code = 32227) 16 MG/G Gunnar LoyaCBC W/AUTO [id number] 00:00:00* Test Item Value Reference Range Interpretation Comme nts WBC (test code = 1001) 4.7 K/UL RBC (test code = 1002) 4.38 M/UL HEMOGLOBIN (test code = 1003) 13.3 G/DL HEMATOCRIT (test code = 1004) 39.9 % MCV (test code = 1005) 91.1 fL MCH (test code = 1006) 30.4 PG MCHC (test code = 1007) 33.3 G/DL RDW (test code = 1038) 13.5 % NEUTROPHILS (test code = 1008) 67.1 % LYMPHOCYTES (test code = 1010) 21.7 % MONOCYTES (test code = 1011) 8.7 % EOSINOPHILS (test code = 1012) 1.3 % BASOPHILS (test code = 1013) 0.4 % IMMATURE GRANULOCYTES (test code = 1036) 0.8 % NUCLEATED RBCS (test code = 1065) 0.0 /100WBC'S PLATELET COUNT (test code = 1015) 148 K/UL ABSOLUTE NEUTROPHILS (test c ode = 1066) 3.16 K/UL ABSOLUTE LYMPHOCYTES (test c ode = 1067) 1.02 K/UL ABSOLUTE MONOCYTES (test cod e = 1068) 0.41 K/UL ABSOLUTE EOSINOPHILS (test c ode = 1040) 0.06 K/UL ABSOLUTE BASOPHILS (test cod e = 1069) 0.02 K/UL ABS IMMATURE GRANULOCYTES (t est code = 1020) 0.04 K/UL ABS NUCLEATED RBCS (test cod e = 54045) 0.00 K/UL Gunnar LoyaCOMPREHENSIVE METABOLIC [id number] 00:00:00* Test Item Value Reference Range Interpretation Comme nts GLUCOSE (test code = 2217) 95 MG/DL BUN (test code = 2208) 21 MG/DL CREATININE (test code = 2214) 0.92 MG/DL eGFR (2020 CKD-EPI) (test co de = 46457) 92 ML/MIN/1.73 CALC BUN/CREAT (test code = 2235) 23 RATIO SODIUM (test code = 2231) 144 MEQ/L POTASSIUM (test code = 2228) 4.4 MEQ/L CHLORIDE (test code = 2215) 105 MEQ/L CARBON DIOXIDE (test code = 2206) 23 MEQ/L CALCIUM (test code = 2209) 9.7 MG/DL PROTEIN, TOTAL (test code = 2229) 6.6 G/DL ALBUMIN (test code = 2201) 4.5 G/DL CALC GLOBULIN (test code = 2240) 2.1 G/DL CALC A/G RATIO (test code = 2234) 2.1 RATIO BILIRUBIN, TOTAL (test code = 2207) 0.5 MG/DL ALKALINE PHOSPHATASE (test code = 2204) 75 U/L AST (test code = 2218) 14 U/L ALT (test code = 2219) 18 U/L Gunnar Coley AustinURINALYSIS W/REFLEX [id number] 00:00:00* Test Item Value Reference Range Interpretation Comme nts COLOR (test code = 1501) YELLOW APPEARANCE (test code = 1502) CLEAR SPECIFIC GRAVITY (test code = 1503) 1.021 LEUKOCYTE ESTERASE (test cod e = 1504) NEGATIVE NITRITE (test code = 1505) NEGATIVE pH (test code = 1506) 7.5 PROTEIN (test code = 1507) NEGATIVE GLUCOSE (test code = 1508) NEGATIVE KETONES (test code = 1509) NEGATIVE UROBILINOGEN (test code = 1510) 0.2 MG/DL BILIRUBIN (test code = 1511) NEGATIVE OCCULT BLOOD (test code = 1512) NEGATIVE Gunnar F AustinLIPID [id number] 00:00:00* Test Item Value Reference Range Interpretation Comme nts CHOLESTEROL (test code = 2210) 107 MG/DL TRIGLYCERIDES (test code = 2232) 85 MG/DL HDL CHOLESTEROL (test code = 2220) 44 MG/DL CALC LDL CHOL (test code = 2237) 46 MG/DL RISK RATIO LDL/HDL (test cod e = 2238) 1.05 RATIO Gunnar Brijesh AustinHEMOGLOBIN [id number] 00:00:00* Test Item Value Reference Range Interpretation Comme pierce HEMOGLOBIN A1c (test code = 84199) 9.0 % Gunnar LoyaALBUMIN/CREATININE RATIO, RANDOM [id number] 00:00:00* Test Item Value Reference Range Interpretation Comme pierce CREATININE, URINE, CONC. (te st code = 2072) 123.0 MG/DL ALBUMIN, URINE, RANDOM (test code = 54471) 2.0 MG/DL CALC ALBUMIN/CREAT, RND (genevieve t code = 23585) 16 MG/G Gunnar LoyaGzjyyl27-Umrorapeqwjvqb D3+25-Hydroxyvitamin D2 [Mass/volume] in Serum or [id number] 00:00:00* Test Item Value Reference Range Interpretation Comme nts 25-Hydroxyvitamin D3+25-Hydroxyvitamin D2 [Mass/volume] in Serum or Plasma (test code = 94955-4) 26.2 NG/mL 30.0-100.0 L [facility] W Auto Differential panel - [id number] 00:00:00* Test Item Value Reference Range Interpretation Comme nts Leukocytes [#/volume] in Blo od by Automated count (test code = 6690-2) 5.3 x10e3/uL 3.4-10.8 Erythrocytes [#/volume] in Blood by Automated count (test code = 789-8) 5.04 x10e6/uL 4.14-5.80 Hemoglobin [Mass/volume] in Blood (test code = 718-7) 14.6 g/dL 13.0-17.7 Hematocrit [Volume Fraction] of Blood by Automated count (test code = 4544-3) 44.8 % 37.5-51.0 Erythrocyte mean corpuscular volume [Entitic volume] by Automated count (test code = 787-2) 89 fL 79-97 Erythrocyte mean corpuscular hemoglobin [Entitic mass] by Automated count (test code = 785-6) 29.0 pg 26.6-33.0 Erythrocyte mean corpuscular hemoglobin concentration [Mass/volume] by Automated count (test code = 786-4) 32.6 g/dL 31.5-35.7 Erythrocyte distribution wid th [Ratio] by Automated count (test code = 788-0) 13.1 % 11.6-15.4 Platelets [#/volume] in Bloo d by Automated count (test code = 777-3) 183 x10e3/uL 150-450 Neutrophils/100 leukocytes i n Blood by Automated count (test code = 770-8) 62 % not estab. Lymphocytes/100 leukocytes i n Blood by Automated count (test code = 736-9) 23 % not estab. Monocytes/100 leukocytes in Blood by Automated count (test code = 5905-5) 11 % not estab. Eosinophils/100 leukocytes i n Blood by Automated count (test code = 713-8) 2 % not estab. Basophils/100 leukocytes in Blood by Automated count (test code = 706-2) 1 % not estab. immature cells (test code = immature cells) electrical line splicer Neutrophils [#/volume] in Bl ood by Automated count (test code = 751-8) 3.4 x10e3/uL 1.4-7.0 Lymphocytes [#/volume] in Bl ood by Automated count (test code = 731-0) 1.2 x10e3/uL 0.7-3.1 Monocytes [#/volume] in Bloo d by Automated count (test code = 742-7) 0.6 x10e3/uL 0.1-0.9 Eosinophils [#/volume] in Bl ood by Automated count (test code = 711-2) 0.1 x10e3/uL 0.0-0.4 Basophils [#/volume] in Bloo d by Automated count (test code = 704-7) 0.0 x10e3/uL 0.0-0.2 Immature granulocytes/100 leukocytes in Blood by Automated count (test code = 29772-1) 1 % not estab. Immature granulocytes [#/volume] in Blood by Automated count (test code = 19951-9) 0.1 x10e3/uL 0.0-0.1 Nucleated erythrocytes/100 leukocytes [Ratio] in Blood by Automated count (test code = 18538-1) electrical line splicer Morphology [Interpretation] in Blood Narrative (test code = 87767-0) electrical line splicer [facility]Com[facility] 2000 panel - Serum or [id number] 00:00:00* Test Item Value Reference Range Interpretation Comme nts Glucose [Mass/volume] in Serum or Plasma (test code = 2345-7) 83 mg/dL 65-99 Urea nitrogen [Mass/volume] in Serum or Plasma (test code = 3094-0) 20 mg/dL 8-27 Creatinine [Mass/volume] in Serum or Plasma (test code = 2160-0) 0.89 mg/dL 0.76-1.27 Glomerular filtration rate/1.73 sq M.predicted among non-blacks [Volume Rate/Area] in Serum, Plasma or Blood by Creatinine-based formula (CKD-EPI) (test code = 00337-3) 91 mL/min/1.73 >59 Glomerular filtration rate/1.73 sq M.predicted among blacks [Volume Rate/Area] in Serum, Plasma or Blood by Creatinine-based formula (CKD-EPI) (test code = 34005-0) 105 mL/min/1.73 >59 Urea nitrogen/Creatinine [Mass Ratio] in Serum or Plasma (test code = 3097-3) 22 10-24 Sodium [Moles/volume] in Serum or Plasma (test code = 2951-2) 143 mmol/L 134-144 Potassium [Moles/volume] in Serum or Plasma (test code = 2823-3) 4.3 mmol/L 3.5-5.2 Chloride [Moles/volume] in Serum or Plasma (test code = 5-0) 106 mmol/L 96-106 Carbon dioxide, total [Moles/volume] in Serum or Plasma (test code = 2027-9) 21 mmol/L 20-29 Calcium [Mass/volume] in Serum or Plasma (test code = 09670-3) 9.3 mg/dL 8.6-10.2 Protein [Mass/volume] in Serum or Plasma (test code = 2885-2) 6.9 g/dL 6.0-8.5 Albumin [Mass/volume] in Serum or Plasma (test code = 1751-7) 4.7 g/dL 3.8-4.8 Globulin [Mass/volume] in Serum by calculation (test code = 57118-6) 2.2 g/dL 1.5-4.5 Albumin/Globulin [Mass Ratio ] in Serum or Plasma (test code = 1759-0) 2.1 1.2-2.2 Bilirubin.total [Mass/volume ] in Serum or Plasma (test code = 1975-2) 0.4 mg/dL 0.0-1.2 Alkaline phosphatase [Enzymatic activity/volume] in Serum or Plasma (test code = 6768-6) 71 IU/L 44-121 Aspartate aminotransferase [Enzymatic activity/volume] in Serum or Plasma (test code = 1920-8) 18 IU/L 0-40 Alanine aminotransferase [Enzymatic activity/volume] in Serum or Plasma (test code = 1742-6) 25 IU/L 0-44 [facility] HospitalLipid 1996 panel - Serum or [id number] 00:00:00* Test Item Value Reference Range Interpretation Comme nts Cholesterol [Mass/volume] in Serum or Plasma (test code = 2093-3) 161 mg/dL 100-199 Triglyceride [Mass/volume] i n Serum or Plasma (test code = 2571-8) 116 mg/dL 0-149 Cholesterol in HDL [Mass/vol ume] in Serum or Plasma (test code = 2085-9) 41 mg/dL >39 Cholesterol in VLDL [Mass/vo lume] in Serum or Plasma by calculation (test code = 32325-0) 21 mg/dL 5-40 Cholesterol in LDL [Mass/vol ume] in Serum or Plasma by calculation (test code = 78626-1) 99 mg/dL 0-99 Laboratory comment [Text] in Report Narrative (test code = 43990-4) electrical line splicer Cholesterol in LDL/Cholester ol in HDL [Mass Ratio] in Serum or Plasma (test code = 02678-1) 2.4 ratio 0.0-3.6 [facility] HospitalAlbumin/Creatinine [Mass Ratio] in Urine 2021-09-08 00:00:00* Test Item Value Reference Range Interpretation Comme nts Creatinine [Mass/volume] in Urine (test code = 2161-8) 92.3 mg/dL not estab. Microalbumin [Mass/volume] i n Urine (test code = 25243-7) <3.0 not estab. Albumin/Creatinine [Mass rat io] in Urine (test code = 9318-7) <3 0-29 [facility] HospitalHemoglobin A1c/Hemoglobin.total in Blood 2021-09-08 00:00:00* Test Item Value Reference Range Interpretation Comme nts Hemoglobin A1c/Hemoglobin.to amy in Blood (test code = 4548-4) 7.7 % 4.8-5.6 H [facility] HospitalProstate specific Ag [Mass/volume] in Serum or [id number] 00:00:00* Test Item Value Reference Range Interpretation Comme nts Prostate specific Ag [Mass/v olume] in Serum or Plasma (test code = 2857-1) 0.8 NG/mL 0.0-4.0 [facility]icsTestosterone [Mass/volume] in Serum or Plasma 2021-09-08 00:00:00* Test Item Value Reference Range Interpretation Comme nts Testosterone [Mass/volume] i n Serum or Plasma (test code = 2986-8) 300 NG/dL 264-916 [facility] HospitalThyroxine (T4) free [Mass/volume] in Serum or [id number] 00:00:00* Test Item Value Reference Range Interpretation Comme nts Thyroxine (T4) free [Mass/vo lume] in Serum or Plasma (test code = 3024-7) 1.00 NG/dL 0.82-1.77 [facility] HospitalThyrotropin [Units/volume] in Serum or Plasma by Detection limit <= 0.005 mIU/[id number] 00:00:00* Test Item Value Reference Range Interpretation Comme nts Thyrotropin [Units/volume] i n Serum or Plasma by Detection limit <= 0.005 mIU/L (test code = 37283-4) 2.100 uIU/mL 0.450-4.500 [facility] Notes Date/Time Note Provider Source [facility]2024-12-11 00:00:00 [facility]2024-10-18 00:00:00 [facility]2024-09-20 00:00:00 [facility]2024-09-11 00:00:00 [facility]2024-08-20 00:00:00 [facility]2024-05-31 00:00:00 [facility]
[2025-03-16] MEDS ORDERED: ASPIRIN 81 MG CHEWABLE TABLET ONE (22:48)
[2025-03-16 22:52] LABS: Absolute Eosinophils 0.1 K/uL (0-0.5); Absolute Lymphocytes (CBC) 1.8 K/uL (0.7-4.9); Absolute Monocytes 0.7 K/uL (0.1-1.3); Absolute Neutrophil 4.1 K/uL (1.8-8.0); Basophils % 0.7 % (0-1.3); Eosinophils % 1.4 % (0-4.4); Hematocrit 40.7 % (39.6-49.0); Lymphocytes % 26.6 % (15.3-44.8); MCH 29.4 pg (27.0-35.0); MCHC 34.3 g/dL (32.0-36.0); MCV 85.6 fL (80-100); MPV 9.7 fL (7.6-11.3); Monocytes % 10.3 % (3.3-12.3); Nucleated Red Blood Cells % 0.1 % (0-0); Platelets 161 thou/uL (152-406); RBC Red Blood Cell Count 4.75 M/uL (4.33-5.43)
[2025-03-16 23:00] LABS: PT Prothrombin Time 11.3 SECONDS (10-13.0); Protime INR 0.99
[2025-03-16] MEDS ORDERED: METOPROLOL TAR 50 MG TAB ONE (23:10)
[2025-03-16 23:15] LABS: ALT/SGPT 37 U/L (16-61); AST/SGOT 19 U/L (15-37); Albumin 3.8 g/dL (3.4-5.0); Albumin/Globulin Ratio 1.2 (1.1-1.8); Alkaline Phosphatase 108 U/L (45-117); Anion Gap 8.9 mEq/L (5.0-15.0); BUN Blood Urea Nitrogen 27 mg/dL (7-18); Bicarbonate 26 mEq/L (21-32); Bilirubin Total 0.4 mg/dL (0.2-1.0); Globulin 3.2 g/dL (2.3-3.5); Glomerular Filtration Rate 82 ml/min (=/>90); Glucose Level 153 mg/dL (74-106); NT PRO-BNP 64 pg/mL (<125); Potassium 3.9 mEq/L (3.5-5.1); Sodium Level 140 mEq/L (136-145); Troponin High Sensitivity 33.7 pg/mL (<58.9)
[2025-03-16 23:16] LABS: Bilirubin Direct < 0.2 mg/dL (0-0.2); Bilirubin Indirect, Calculated 0.2 mg/dL (0.2-0.8)
--- NOTE | 2025-03-17 00:39 | ER ---
Nurse's Notes [facility] Name: Raad Avila Age: 69 yrs Sex: Male : 1955 Arrival Date: 03/16/2025 Time: 22:08 Bed 13 Private MD: Diagnosis: Chest pain, unspecified;Palpitations;Hypertensive heart disease without heart failure Presentation: 03/16 22:25 Chief complaint: Patient states: PT STATES HE HAS BEEN HAVING INTERMITTENT PALPATATIONS br2 FOR THE LAST 2 MONTHS. IT HAS BECOME WORSE LATELY WITH SOB. CP EARLIER TODAY BUT BLEW IT OFF HEART BURN. Coronavirus screen: Client denies travel out of the [place] in the last 14 days. Ebola Screen: Patient denies exposure to infectious person. Initial Sepsis Screen: Does the patient meet any 2 criteria? No. Patient's initial sepsis screen is negative. Does the patient have a suspected source of infection? No. Patient's initial sepsis screen is negative. 22:25 Method Of Arrival: Ambulatory br2 22:40 Risk Assessment: Do you want to hurt yourself or someone else? Patient reports no kj2 desire to harm self or others. Onset of symptoms was March 16, 2025. 22:40 Acuity: WILLI 2 kj2 Triage Assessment: 22:27 General: Appears in no apparent distress. uncomfortable, Behavior is calm, cooperative. br2 Pain: Denies pain. Respiratory: Reports shortness of breath at rest on exertion Onset: The symptoms/episode began/occurred 2 MONTHS AGO, the patient has mild shortness of breath. Historical: - Allergies: 22:27 Iodine; br2 - PMHx: 22:27 Hypertensive disorder; Diabetes mellitus; Gastroesophageal reflux disease; br2 - Immunization history:: Adult Immunizations not up to date. - Infectious Disease History:: Denies. - Social history:: Smoking status: Patient denies any tobacco usage or history of. Patient/guardian denies using alcohol, street drugs. Screenin:05 [facility] ED Fall Risk Assessment (Adult) History of falling in the last 3 months, kj2 including since admission No falls in past 3 months (0 pts) Confusion or Disorientation No (0 pts) Intoxicated or Sedated No (0 pts) Impaired Gait No (0 pts) Mobility Assist Device Used No (0 pt) Altered Elimination No (0 pt) Score/Fall Risk Level 0 - 2 = Low Risk Maintained a safe environment, Hourly rounding (assess needs \T\ fall precautionary measures) done. Abuse screen: Denies threats or abuse. Denies injuries from another. Nutritional screening: No deficits noted. Tuberculosis screening: No symptoms or risk factors identified. Assessment: 22:40 General: Appears in no apparent distress. Behavior is calm, cooperative. Pain: kj2 Complains of pain in chest Pain currently is 6 out of 10 on a pain scale. Cardiovascular: Patient's skin is warm and dry. Respiratory: Airway is patent Respiratory effort is unlabored. GI: No signs and/or symptoms were reported involving the gastrointestinal system. : No signs and/or symptoms were reported regarding the genitourinary system. 23:07 Reassessment: Patient appears in no apparent distress at this time. Patient and/or kj2 family updated on plan of care and expected duration. Pain level reassessed. Patient is alert, oriented x 3, equal unlabored respirations, skin warm/dry/pink. 03/17 00:02 General: Appears in no apparent distress. comfortable, Behavior is calm, cooperative. al5 Neuro: Level of Consciousness is awake, alert, obeys commands, Oriented to person, place, time, situation. Cardiovascular: Capillary refill < 3 seconds Patient's skin is warm and dry. Rhythm is sinus rhythm. Respiratory: Airway is patent Respiratory effort is even, unlabored, Respiratory pattern is regular, symmetrical, Breath sounds are clear bilaterally. GI: No signs and/or symptoms were reported involving the gastrointestinal system. : No signs and/or symptoms were reported regarding the genitourinary system. EENT: No signs and/or symptoms were reported regarding the EENT system. Derm: Skin is intact, is healthy with good turgor, Skin is pink, warm \T\ dry. normal. Musculoskeletal: No signs and/or symptoms reported regarding the musculoskeletal system. Vital Signs: 03/16 22:25 BP 203 / 96; Pulse 79; Resp 18; Temp 97.2(TE); Pulse Ox 96% on R/A; Weight 104.33 kg; br2 Height 5 ft. 8 in. ; Pain 0/10; 22:30 BP 192 / 84; Pulse 68; Resp 21; Pulse Ox 95% ; al5 23:07 BP 167 / 87; Pulse 74; Resp 20; Pulse Ox 94% on R/A; kj2 23:30 BP 159 / 81; Pulse 65; Resp 19; Pulse Ox 94% ; al5 03/17 00:00 BP 155 / 78; Pulse 57; Resp 18; Pulse Ox 94% ; al5 01:00 BP 164 / 78; Pulse 68; Resp 18; Pulse Ox 94% ; al5 03:00 BP 165 / 85; Pulse 59; Resp 17; Pulse Ox 94% ; al5 03/16 22:25 Body Mass Index 34.97 (104.33 kg, 172.72 cm) br2 03/16 22:25 Pain Scale: Adult br2 ED Course: 03/16 22:11 Patient arrived in ED. im 22:16 Wan Lewis PA is PHCP. cp 22:16 Louie Calhoun MD is Attending Physician. cp 22:19 Inserted saline lock: 20 gauge in right antecubital area, using aseptic technique. al5 Blood collected. Flushed with 10 mL NS. 22:27 Arm band placed on. br2 22:33 Zenaida Ortiz RN is Primary Nurse. kj2 22:40 Patient has correct armband on for positive identification. Bed in low position. Call kj2 light in reach. Provided Education on: call light. 22:50 XRAY Chest (1 view) In Process Unspecified. EDMS 23:07 Triage completed. kj2 23:07 No provider procedures requiring assistance completed. kj2 23:14 Report given to Samantha Alan RN. kj2 03/17 00:38 Lloyd De Anda MD is Hospitalizing Provider. cp 03:29 IV discontinued, intact, patient self removed IV after leaving ama prior to signing ama al5 form. Administered Medications: 03/16 22:56 Drug: Aspirin PO Chewable Tablet 324 mg PO once; 81 mg tablets x 4 Route: PO; kj2 23:02 Follow up: Response: No adverse reaction kj2 23:14 Drug: Metoprolol PO 50 mg PO once Route: PO; kj2 03/17 03:31 Follow up: Response: No adverse reaction; Blood pressure is lowered al5 Medication: 03/16 23:05 VIS not applicable for this client. kj2 Outcome: 03/17 00:39 Decision to Hospitalize by Provider. cp 00:40 Admitted to ER Hold. Please see [facility] for further documentation. al5 00:40 Condition: stable 00:40 Instructed on the need for admit, 03:30 AMA Left before signing form, al5 03:30 Condition: stable 04:22 Patient left the ED. al5 Signatures: Dispatcher [employer] EDMS Wan Lewis PA PA cp Mendoza, Itzel im Langhorst, Amanda RN RN al5 Krystyna Chauhan RN RN br2 Zenaida Ortiz RN RN kj2 Corrections: (The following items were deleted from the chart) 03:32 03:00 BP 165 / 85; Pulse 50bpm; Resp 17bpm; Pulse Ox 94%; al5 al5
--- NOTE | 2025-03-17 00:40 | EDPHYS ---
Physician Documentation [facility] Name: Raad Avila Age: 69 yrs Sex: Male : 1955 Arrival Date: 03/16/2025 Time: 22:08 Bed 13 Private MD: ED Physician Louie Calhoun HPI: 03/16 22:20 This 69 yrs old Male presents to ER via Ambulatory with complaints of Shortness Of cp Breath, heartburn, Palpitations. 22:20 The patient has shortness of breath with light activity. Onset: The symptoms/episode cp began/occurred 2 month(s) ago. Duration: The symptoms are intermittent, with no pattern. Associated signs and symptoms: Pertinent positives: chest pain, palpitations. Severity of symptoms: in the emergency department the symptoms have improved moderately. Historical: - Allergies: 22:27 Iodine; br2 - PMHx: 22:27 Hypertensive disorder; Diabetes mellitus; Gastroesophageal reflux disease; br2 - Immunization history:: Adult Immunizations not up to date. - Infectious Disease History:: Denies. - Social history:: Smoking status: Patient denies any tobacco usage or history of. Patient/guardian denies using alcohol, street drugs. ROS: 22:25 Constitutional: Negative for body aches, chills, fever, poor PO intake, cp 22:25 Eyes: Negative for injury, pain, redness, and discharge, cp 22:25 ENT: Negative for drainage from ear(s), ear pain, sore throat, difficulty swallowing, difficulty handling secretions, 22:25 Cardiovascular: Positive for chest pain, palpitations, Negative for edema, 22:25 Respiratory: Negative for cough, shortness of breath, wheezing, 22:25 Abdomen/GI: Negative for abdominal pain, vomiting, diarrhea, constipation, 22:25 Back: Negative for pain at rest, pain with movement, 22:25 Neuro: Negative for altered mental status, dizziness, headache, numbness, weakness, 22:25 All other systems are negative, Exam: 22:27 ECG was reviewed by the Attending Physician. cp 22:30 Constitutional: The patient appears in no acute distress, alert, non-diaphoretic, cp non-toxic, well developed, well nourished, obese, 22:30 Head/Face: Normocephalic, atraumatic. cp 22:30 Eyes: Periorbital structures: appear normal, Conjunctiva: normal, no exudate, no injection, Sclera: no appreciated abnormality, Lids and lashes: appear normal, bilaterally, 22:30 ENT: External ear(s): are unremarkable, Nose: is normal, Mouth: Lips: moist, Oral mucosa: moist, Posterior pharynx: Airway: no evidence of obstruction, patent, 22:30 Neck: ROM/movement: is normal, is supple, without pain, no range of motions limitations, 22:30 Chest/axilla: Inspection: normal, Palpation: crepitus, is not appreciated, tenderness, is not appreciated, 22:30 Cardiovascular: Rate: normal, Rhythm: regular, Edema: is not appreciated, JVD: is not appreciated, 22:30 Respiratory: the patient does not display signs of respiratory distress, Respirations: normal, no use of accessory muscles, no retractions, labored breathing, is not present, Breath sounds: are clear throughout, no decreased breath sounds, no stridor, no wheezing, 22:30 Abdomen/GI: Inspection: obese Palpation: abdomen is soft and non-tender, in all quadrants, 22:30 Back: pain, is absent, ROM is normal, 22:30 Neuro: Orientation: to person, place \T\ time. Mentation: is normal, Cerebellar function: is grossly normal, Motor: moves all fours, strength is normal, Sensation: is normal, Vital Signs: 22:25 BP 203 / 96; Pulse 79; Resp 18; Temp 97.2(TE); Pulse Ox 96% on R/A; Weight 104.33 kg; br2 Height 5 ft. 8 in. ; Pain 0/10; 22:30 BP 192 / 84; Pulse 68; Resp 21; Pulse Ox 95% ; al5 23:07 BP 167 / 87; Pulse 74; Resp 20; Pulse Ox 94% on R/A; kj2 23:30 BP 159 / 81; Pulse 65; Resp 19; Pulse Ox 94% ; al5 0505 00:00 BP 155 / 78; Pulse 57; Resp 18; Pulse Ox 94% ; al5 01:00 BP 164 / 78; Pulse 68; Resp 18; Pulse Ox 94% ; al5 03:00 BP 165 / 85; Pulse 59; Resp 17; Pulse Ox 94% ; al5 03/16 22:25 Body Mass Index 34.97 (104.33 kg, 172.72 cm) br2 03/16 22:25 Pain Scale: Adult br2 MDM: 03/16 22:16 Medical Screening Exam initiated cp 23:00 Differential diagnosis: Anemia Anxiety Reaction CHF exacerbation, Myocardial Infarction cp pneumonia, Pneumothorax pulmonary edema, Pulmonary Embolism Unstable Angina. 03/17 00:40 Data reviewed: vital signs, nurses notes, lab test result(s), EKG, radiologic studies, cp plain films, and as a result, I will admit patient. 00:40 Consideration of Admission/Observation Patient was admitted/placed on observation. cp Management of patient was discussed with the following: Hospitalist: DR De Anda will admit after discussion. I considered the following discharge prescriptions or medication management in the emergency department Medications were administered in the Emergency Department. See MAR. Independent interpretation of the following test(s) in the Emergency Department EKG: See my EKG interpretation above. Care significantly affected by the following chronic conditions: Diabetes, Hypertension, Obesity. Counseling: I had a detailed discussion with the patient and/or guardian regarding the historical points, exam findings, and any diagnostic results supporting the discharge/admit diagnosis, the presence of at least one elevated blood pressure reading (>120/80) during this emergency department visit, lab results, radiology results, the need for further work-up and treatment in the hospital. Response to treatment: the patient's symptoms have mildly improved after treatment. 03/16 22:39 Order name: Basic Metabolic Panel; Complete Time: 23:35 cp 03/16 23:36 Interpretation: Normal except: CL 109; GLUC 153; BUN 27; GFR 82. cp 03/16 22:39 Order name: CBC with Diff; Complete Time: 23:35 cp 03/16 22:39 Order name: LFT's; Complete Time: 23:35 cp 03/16 22:39 Order name: Magnesium; Complete Time: 23:35 cp 03/16 22:39 Order name: NT PRO-BNP; Complete Time: 23:35 cp 03/16 22:39 Order name: PT-INR; Complete Time: 23:35 cp 03/16 22:39 Order name: Troponin HS; Complete Time: 23:35 cp 03/16 23:36 Interpretation: Reviewed. cp 03/17 01:04 Order name: CBC with Automated Diff EDMS 03/17 01:04 Order name: CBC with Automated Diff EDMS 03/17 01:04 Order name: Comprehensive Metabolic Panel EDMS 03/17 01:04 Order name: Comprehensive Metabolic Panel EDMS 03/17 01:04 Order name: Troponin High Sensitivity EDMS 03/17 01:04 Order name: Troponin High Sensitivity EDMS 03/17 01:04 Order name: Troponin High Sensitivity EDMS 03/17 01:04 Order name: Troponin High Sensitivity EDMS 03/17 01:04 Order name: Troponin High Sensitivity EDMS 03/17 01:04 Order name: Troponin High Sensitivity EDMS 03/17 01:04 Order name: Troponin High Sensitivity EDMS 03/16 22:39 Order name: XRAY Chest (1 view) cp 03/16 22:16 Order name: EKG; Complete Time: 22:16 cp 03/16 22:16 Order name: EKG - Nurse/Tech; Complete Time: 22:19 cp 03/16 22:39 Order name: Cardiac monitoring; Complete Time: 22:56 cp 03/16 22:39 Order name: IV Saline Lock; Complete Time: 22:56 cp 03/16 22:39 Order name: Labs collected and sent; Complete Time: 22:56 cp 03/16 22:39 Order name: O2 Per Protocol; Complete Time: 22:56 cp 03/16 22:39 Order name: O2 Sat Monitoring; Complete Time: 22:56 cp EC/04 22:27 Rate is 78 beats/min. Rhythm is regular. TX interval is normal. QRS interval is cp prolonged at 104 msec. QT interval is normal. T waves are Inverted in leads aVL, aVR. Interpreted by me. Reviewed by me. Administered Medications: 22:56 Drug: Aspirin PO Chewable Tablet 324 mg PO once; 81 mg tablets x 4 Route: PO; kj2 23:02 Follow up: Response: No adverse reaction kj2 23:14 Drug: Metoprolol PO 50 mg PO once Route: PO; kj2 03/17 03:31 Follow up: Response: No adverse reaction; Blood pressure is lowered al5 Disposition: 05:51 Co-signature as Attending Physician, Louie Calhoun MD I reviewed the patient's care rt provided by the Advanced Practice Provider and agree with the diagnosis and treatment plan. Disposition Summary: 03/17/25 00:39 Hospitalization Ordered Notes: Hospitalization Status: Observation cp Provider: Lloyd De Anda cp Condition: Stable cp Problem: new cp Symptoms: have improved cp Bed/Room Type: Standard cp Location: [facility] ER HOLD(03/17/25 01:11) cg Room Assignment: ERHOLD-(03/17/25 01:11) cg Diagnosis - Chest pain, unspecified cp - Palpitations cp - Hypertensive heart disease without heart failure cp Forms: - Medication Reconciliation Form cp - SBAR form cp - Leadership Thank You Letter cp Signatures: Dispatcher [employer] EDMS Wan Lewis PA PA cp Yoselin Whipple, RN RN cg Louie Calhoun MD MD rt Krystyna Chauhan RN RN br2 Zenaida Ortiz RN RN kj2 Samantha Holland RN al5 Corrections: (The following items were deleted from the chart) 03/16 22:40 22:40 BASIC METABOLIC PANEL+C.LAB.BRZ ordered. EDMS EDMS 22:40 22:40 CBC+H.LAB.BRZ ordered. EDMS EDMS 22:40 22:40 HEPATIC FUNCTION+C.LAB.BRZ ordered. EDMS EDMS 22:40 22:40 MAGNESIUM+C.LAB.BRZ ordered. EDMS EDMS 22:40 22:40 PROBNP+C.LAB.BRZ ordered. EDMS EDMS 22:40 22:40 PROTIME (+INR)+COAG.LAB.BRZ ordered. EDMS EDMS 22:40 22:40 Troponin High Sensitivity+C.LAB.BRZ ordered. EDMS EDMS 22:40 22:40 Chest Single View+RAD.RAD.BRZ ordered. EDMS EDMS 03/17 01:11 00:39 Telemetry/MedSurg (observation) cp cg 01:11 00:39 cp cg
[2025-03-17] MEDS ORDERED: ACETAMINOPHEN 325 MG TABLET PO PRN (00:58)
[2025-03-17] MEDS ORDERED: ONDANSETRON 4 MG/2 ML VIAL IV PRN (00:58)
[2025-03-17] MEDS ORDERED: D10W 125 ML IV PRN (01:04)
[2025-03-17] MEDS ORDERED: GLUCAGON 1 MG/VIAL IM PRN (01:04)
--- NOTE | 2025-03-17 01:04 | P.HP ---
Certification for Inpatient Patient admitted to: Observation With expected LOS: <2 Midnights Practitioner: I am a practitioner with admitting privileges, knowledge of patient current condition, hospital course, and medical plan of care. Services: Services provided to patient in accordance with Admission requirements found in Title 42 Section 412.3 of the Code of Federal Regulations Patient History Date of Service: 03/18/25 Reason for admission: Chest Pain History of Present Illness: 69 yrs old Male with past medical history of hypertension, hyperlipidemia, diabetes, GERD who presented to the ER with shortness of breath and palpitations and heartburn which has been going on for the last few days and has been progressively getting worse and was brought to ER. Associated with pain in the chest. Retrosternal location. Nonradiating. Not associated with any diaphoresis. Patient was assessed in the ER and was admitted for further management of chest pain rule out ACS and monitor for palpitations and arrhythmias Home medications list reviewed: Yes - Past Medical/Surgical History Past Medical History: Reviewed- Non-Contributory Past Surgical History: Reviewed- Non-Contributory - Social History Smoking Status: Never smoker Review of Systems 10-point ROS is otherwise unremarkable Physical Examination - Vital Signs Temperature: 97.2 F Blood Pressure: 203/96 Pulse: 78 Respirations: 18 Pulse Ox (%): 94 - Physical Exam General: Alert, In no apparent distress, Oriented x3 HEENT: Atraumatic, Normocephalic Neck: Supple Respiratory: Clear to auscultation bilaterally, Normal air movement Cardiovascular: Regular rate/rhythm, Normal S1 S2 Capillary refill: <2 Seconds Gastrointestinal: Soft and benign, W/out hepatosplenomegaly Musculoskeletal: No clubbing, No swelling Integumentary: No rashes Neurological: Other (Alert awake nonfocal) Lymphatics: No axilla or inguinal lymphadenopathy - Studies Laboratory Data (last 24 hrs) 03/16/25 03/16/25 03/16/25 22:35 22:35 22:35 WBC 6.70 Hgb 14.0 Hct 40.7 Plt Count 161 PT 11.3 INR 0.99 Sodium 140 Potassium 3.9 BUN 27 H Creatinine 1.00 Glucose 153 H Magnesium 2.0 Total Bilirubin 0.4 AST 19 ALT 37 Alkaline Phosphatase 108 Assessment and Plan - Plan Chest pain rule out ACS Will trend cardiac enzymes Will monitor telemetry Started on aspirin and statin EKG did not show any acute changes sinus ST-T suggestive of ischemia Patient denies any chest pain Will get an echocardiogram Cardiology consult Hypertension Antihypertensives titrated Continue home medications and titrate as needed Hyperlipidemia Continue statin Diabetes Insulin sliding scale Accu-Chek before every meal and at bedtime GI/DVT prophylaxis Advanced directive full code Discharge Plan: Home Plan to discharge in: 48 Hours - Advance Directives Does patient have a Living Will: No Does patient have a Durable POA for Healthcare: No - Code Status/Comfort Care Code Status: Full Code Time Spent Managing Pts Care (In Minutes): 48
[2025-03-17 04:45] VITALS: TEMP 97.2
[2025-03-17 04:49] VITALS: O2SAT 94
--- NOTE | 2025-03-17 05:45 | RAD REPORT ---
EXAM: XR Chest, 1 View CLINICAL HISTORY: The patient is 69 years old and is Male; CHEST PAIN TECHNIQUE: Frontal view of the chest. COMPARISON: No relevant prior studies available. FINDINGS: LUNGS: Unremarkable. No consolidation. PLEURAL SPACE: Unremarkable. No pneumothorax. HEART: Unremarkable. No cardiomegaly. MEDIASTINUM: Unremarkable. Normal mediastinal contour. BONES/JOINTS: Unremarkable. No acute fracture. UPPER ABDOMEN: Unremarkable as visualized. IMPRESSION: No acute cardiopulmonary process. Electronically signed by: Frances Escobar MD 03/16/2025 11:19 PM CDT RP Due to temporary technical issues with the PACS/[place] reporting system, reports are being abelino d by the in-house radiologist without review as a courtesy to ensure prompt reporting the interpreting radiologist is fully responsible for the content of the report. Transcribed Date/Time: 03/17/2025 5:45 AM
[2025-03-17] MEDS ORDERED: INSULIN REGULAR (HUMAN) 100 UNIT/ML SQ SCH (07:30)
[2025-03-17] MEDS ORDERED: ASPIRIN EC 81 MG TAB PO SCH (09:00)
[2025-03-17] MEDS ORDERED: ENOXAPARIN 40 MG/0.4 ML SQ SCH (09:00)
--- NOTE | 2025-03-17 12:04 | EKG ---
Test Date: 2025-03-16 Test Time: 22:20:16 Pack Worker: DANIEL MEASUREMENT RESULTS: Intervals: Rate: 78 MA: 176 QRSD: 104 QT: 392 QTc: 446 [place]: P: 57 MA: 176 QRS: 13 T: 72 INTERPRETIVE STATEMENTS: Normal sinus rhythm Nonspecific T wave abnormality Abnormal ECG No previous ECG available for comparison Electronically Signed On 03-17-25 12:04:10 CDT by Carlos Vazquez
[2025-03-17] MEDS ORDERED: ATORVASTATIN 40 MG TAB PO SCH (21:00)
[2025-03-18 00:16] VITALS: BP 203/96
--- NOTE | 2025-03-18 00:18 | P.DS ---
Admission Date: 03/17/25 Discharge Date: 03/17/25 Disposition: AMA-LEFT AGAINST MEDICAL ADVIC Discharge Condition: GOOD Reason for Admission: Chest Pain Brief History of Present Illness: 69 yrs old Male with past medical history of hypertension, hyperlipidemia, diabetes, GERD who presented to the ER with shortness of breath and palpitations and heartburn which has been going on for the last few days and has been progressively getting worse and was brought to ER. Associated with pain in the chest. Retrosternal location. Nonradiating. Not associated with any diaphoresis. Patient was assessed in the ER and was admitted for further management of chest pain rule out ACS and monitor for palpitations and arrhythmias Hospital Course: Patient left AMA Vital Signs/Physical Exam: Temp Pulse Resp BP Pulse Ox 97.2 F 78 18 203/96 H 94 03/18/25 00:15 03/18/25 00:15 03/18/25 00:15 03/18/25 00:15 03/18/25 00:15 General: Alert HEENT: Atraumatic, Normocephalic Neck: Supple Respiratory: Clear to auscultation bilaterally, Normal air movement Cardiovascular: Regular rate/rhythm, Normal S1 S2 Gastrointestinal: Soft and benign, W/out hepatosplenomegaly Musculoskeletal: No clubbing, No swelling Integumentary: No rashes Neurological: Normal strength at 5/5 x4 extr, Cranial nerves 3-12 intact, Normal reflexes 2+ Lymphatics: No axilla or inguinal lymphadenopathy Laboratory Data at Discharge: WBC 6.70 thou/uL (4.3-10.9) 03/16/25 22:35 Hgb 14.0 g/dL (13.6-17.9) 03/16/25 22:35 Hct 40.7 % (39.6-49.0) 03/16/25 22:35 Plt Count 161 thou/uL (152-406) 03/16/25 22:35 PT 11.3 SECONDS (10-13.0) 03/16/25 22:35 INR 0.99 03/16/25 22:35 Sodium 140 mEq/L (136-145) 03/16/25 22:35 Potassium 3.9 mEq/L (3.5-5.1) 03/16/25 22:35 BUN 27 mg/dL (7-18) H 03/16/25 22:35 Creatinine 1.00 mg/dL (0.70-1.30) 03/16/25 22:35 Glucose 153 mg/dL (74-106) H 03/16/25 22:35 Magnesium 2.0 mg/dL (1.6-2.4) 03/16/25 22:35 Total Bilirubin 0.4 mg/dL (0.2-1.0) 03/16/25 22:35 AST 19 U/L (15-37) 03/16/25 22:35 ALT 37 U/L (16-61) 03/16/25 22:35 Alkaline Phosphatase 108 U/L (45-117) 03/16/25 22:35 Diet: ADA Activity: Ad giovanni Followup: NONE,NONE [Primary Care Provider] - Time spent managing pt's care (in minutes): 43
== END 2025-03-17 03:30 | disposition left against medical advice (07) ==
LOC: ER 22:08 → ERHOLD 03-17 00:58
PROVIDERS: ADMIT Family Medicine; ATTEND Family Medicine
DX: R07.9 Chest pain, unspecified (principal); I10 Essential (primary) hypertension; E78.5 Hyperlipidemia, unspecified; E11.9 Type 2 diabetes mellitus without complications; K21.9 Gastro-esophageal reflux disease without esophagitis; R06.02 Shortness of breath; R00.2 Palpitations
CPT/HCPCS: 93005; 85025; 80048; 36415; 83735; 85610; 80076; 84484; 83880; 71045; G0378 ×2; 99285